=== PATIENT | female | born 1940 | race Caucasian/White ===

== ENCOUNTER → 2016-05-30 | Outpatient (CLI) | payer MEDICARE ==
[~2016-05-30] MED LIST: ACULAR 3ML 3 ML5 ML OPH; AMLODIPINE BES10 MG PO; ARTHRITIS PAIN325 M1 PO; AVPAK PRIMIDONE50 M1 PO; BUDEPRION XL150 MG PO; CALCIUM + D 6001 TA1 PO; CIPRODEX 0.3%-7.5 M1; CLARITIN10 MG PO; Ecotrin325 MG PO; FLUTICASON0.05 MG/Ac NAS; FUROSEMIDE20 M1 PO; GABAPENTIN100 M2 PO; GLUCOPHAGE1000 MG PO; K-TAB20 MEQ PO; LISINOPRIL10 MG PO; LOSARTAN POTASS50 M1 PO; MAGNESIUM250 M1 PO; MELOXICAM7.5 MG PO; METFORMIN HCL1000 MG PO; METFORMIN HCL500 M1 PO; METFORMIN500 MG PO; NASONEX0.05 MG/AC NS; NORVASC10 MG PO; OCUFLOX 0.3% 5 M5 ML OPH; OMEPRAZOLE DR20 MG PO; OSCAL,OYSTER S500 MG PO; PAXIL10 MG PO; PRED FORTE 1 ML1 ML OPH; PRILOSEC20 M1 PO; PRILOSEC20 MG PO; REQUIP2 M2 PO; SYNTHROID,LEV125 MCG PO; TRIAMTERENE & H1 CAP PO; TRIAMTERENE/HCT1 TAB PO; TYLENOL WITH CO1 TA1 PO; VIT D PO; ZESTRIL10 MG PO; ZOCOR20 MG PO; ZOCOR40 MG PO
--- NOTE | ~2016-05-30 | ST ---
[place], [place] EXERCISE STRESS TEST REPORT NAME: LEONARDO WHITESIDE [facility] #: [id number] UNIT #: [id number] ROOM: DOCTOR: AUSTIN RANDLE MD BIRTHDATE: [birth year] DOS: 05/30/2016 PHARMACOLOGIC STRESS TEST INDICATIONS: Precordial chest pain. PROCEDURE: The patient was given rapid infusion of regadenoson 0.4 mg intravenously followed by a saline flush. She experienced dyspnea and throat discomfort. Her resting electrocardiogram showed left ventricular hypertrophy. With the infusion, she did have a tachycardic response, but no diagnostic ST changes. The resting heart rate of 66 martin to 78. The resting blood pressure 188/80 fell to 160/64. Forty seconds after the infusion of regadenoson she was given radionuclide intravenously. Symptoms resolved spontaneously. IMPRESSION: 1. Well tolerated infusion of regadenoson. 2. Radionuclide injected. Please see the separate imaging report for further details of the patient's stress test results. AUSTIN RNADLE MD CM:STRESS:EXERCISE STRESS TEST REPORT [id number] AUSTIN RANDLE MD
== END | disposition home or self-care (01) ==
LOC: CARD 02:11
DX: R07.2 Precordial pain (principal); R53.81 Other malaise

== ENCOUNTER 2016-10-21 16:04 | Inpatient (IN) | payer MEDICARE ==
[~2016-10-21] VITALS: Ht 160 cm; Wt 75.0 kg
[2016-10-21] VITALS (9 sets, daily range): BP systolic 152–220; BP diastolic 65–116
--- NOTE | ~2016-10-21 | PR ---
[place], [place] PROGRESS NOTE NAME: LEONARDO WHITESIDE [facility] #: [id number] UNIT #: [id number] ROOM: 408 DOCTOR: CAREY PAULINONAIN BIRTHDATE: [birth year] DOS: 10/23/2016 SUBJECTIVE: The patient states today that overall she is feeling considerably better. She still does have some nausea, but has not experienced any emesis and diarrhea has resolved. She is eating well and notes her weakness has improved. PHYSICAL EXAMINATION: VITAL SIGNS: Blood pressure is 183/54, pulse 57, respiration 18, temperature is 98.2 degrees Fahrenheit. GENERAL: A well-appearing female, awake, alert, oriented x 3, no apparent distress. LUNGS: Clear to auscultation and percussion. HEART: Regular S4, S3, rub, murmur or heave noted. ABDOMEN: Soft, positive bowel sounds x 4. EXTREMITIES: No clubbing, cyanosis or edema noted. LABORATORY DATA: From today, WBC is 5.4, hemoglobin 10.0, hematocrit 34.5, platelets 198,000. Sodium is 133, potassium 3.0, chloride 96, CO2 is 27, BUN of 12, creatinine 0.60, glucose is 207, calcium 7.4. ASSESSMENT AND PLAN: 1. Hyponatremia. Sodium is overall improved from admission and unchanged from yesterday morning. There have been active attempts to relower this patient's sodium levels. Note her stat labs were ordered by me at 1:00 p.m. yesterday but never called to me. I did ultimately speak with the nursing staff last evening and ordered repeat stat labs showing sodium was unchanged at 133 at which point she was given 2 mcg of DDAVP as a one-time dose and was given 500 mL of D5W IV over 2 hours. The dosages was based upon her weight of approximately 75 kilograms with using formulation of 6 mL per kg. This unfortunately did not result in any further lowering of her sodium, but it did remain unchanged with today's value was noted again at 133. She has just received a second 500 mL bolus of D5W and follow up sodium level is pending. 2. Hypocalcemia. This is factitious. Her albumin yesterday was noted to be 3.2 with a corresponding calcium of 7.5 for borderline calcium of 8.1. 3. Hypertension. Blood pressure under satisfactory control. RECOMMENDATIONS: Await results of pending labs. Her sodium is currently risen by approximately 10 mEq over 36-hour period, rate of rise now appears to be appropriate and within goal range, but again await follow up labs. I want to keep her sodium no higher than 135 by this afternoon, but ideally, would accept slightly higher values. Continue to follow calciums as well, but does not appear that any intervention will be needed and we will continue for her blood pressure as well. Additionally, request all correct replacements be cleared and performed through nephrology. [place], [place] PROGRESS NOTE NAME: LEONARDO WHITESIDE UNIT #: [id number] ROOM: [facility] DOCTOR: NAIN PATINO DO BIRTHDATE: [birth year] NAIN PATINO DO CM:GONZALEZ [id number] NAIN PATINO DO 10/23/16 1641 interface
--- NOTE | ~2016-10-21 | CON ---
[place], [place] REPORT OF CONSULTATION [facility]IDE [id number] UN[facility] #: [id number] ROOM: 408 DOCTOR: NAIN PATINO DO BIRTHDATE: [birth year] DOS: 10/21/2016 REASON FOR CONSULTATION: Hyponatremia. HISTORY OF PRESENT ILLNESS: The patient is a pleasant 76-year-old female, a vague historian, unfortunately carries a prior history of hypertension, hypothyroidism, depression, hyperlipidemia, type 2 diabetes mellitus, who presents to this institution yesterday due to weakness beginning 2 days prior to admission, weakness association with nausea, vomiting and diarrhea. She states she has not been able to keep anything down since the days this began. Appetite has been poor in terms of solids, but she was attempting to push fluids as she has "dehydration." On presentation to the Emergency Room on admission, she was hypertensive 220/100. Note she had not been taking her medications because she was concerned that she would vomit them back out. Admission labs were notable for sodium of 123. Chemistries were otherwise unremarkable. Glucose was 283. TSH was checked and found to be normal at 1.96 with white count of 7.8, hemoglobin 11.7. Urinalysis showing concentrated specimen ____ 1.020 with 2+ protein, 1+ ketones, 1+ blood with epithelial cells. Not clear why, but she underwent CT scan of the abdomen and pelvis in the Emergency Room that showed no anomalies. Treatment in the Emergency Room included Zofran IV and Vasotec IV. She was seen by the hospitalist service, admitted to the floor, placed on IV fluids at 125 mL an hour. It is not clear to me if a bolus was administered as well. Labs were then rechecked this morning, her sodium has subsequently improved up to 133. Chemistry is otherwise unremarkable. Glucose was 191. Note, calcium was 7.6 but with a normal of 8.2 on admission. The albumin was low with borderline 3.7 on admission, has not been rechecked. Based upon the above noted labs, her IV fluids have been stopped as of approximately one hour ago. She reports since being admitted, she is feeling considerably better. Nausea, vomiting, diarrhea have resolved. She has been started on a liquid diet, which she states is to be advanced to solids, which she is tolerating well. She did have urine chemistries obtained this morning showing a sodium of 74, potassium of 12 and an osmolality of 238. She has been previously evaluated by our service on 2 separate occasions for hyponatremia and had been followed by Dr. Gomez in the office as well for hyponatremia, but has not seen him for several months. Past workup included a CT scan of the chest given her smoking history, it did not reveal any evidence of any malignancies. Cortisol levels have been normal in the past as have thyroid function tests. She had previously been on Dyazide, but this was discontinued after her most recent stay for hyponatremia in 12/2015. She had previously been on losartan as well. This has since been stopped and she has also previously been taking Paxil, which was by report for depression. This has been stopped and she is now on bupropion. Her current medications do not reveal any medications that may be contributing to her hyponatremia with the exception of primidone 50 mg b.i.d., appears this has been a longstanding medication for this patient. She denies use of NSAIDs. PAST MEDICAL HISTORY: See above. ALLERGIES: No known drug allergies. [place], [place] REPORT OF CONSULTATION NAME: LEONARDO WHITESIDE UNIT #: [id number] ROOM: 408 DOCTOR: NAIN PATINO DO BIRTHDATE: [birth year] CURRENT MEDICATIONS: Lisinopril 10 mg p.o. every day, Lovenox 40 mg subcutaneously every day, sliding scale insulin, Protonix 40 mg p.o. every day, saline 100 mL an hour, now discontinued. SOCIAL HISTORY: She resides at home. FAMILY HISTORY: Noncontributory ____ HPI. REVIEW OF SYSTEMS: Full 10-point was otherwise unremarkable except as noted above. PHYSICAL EXAMINATION: VITAL SIGNS: Blood pressure is 189/51, pulse 60, respiration 18, temperature is 98 degrees Fahrenheit. GENERAL: A well-appearing female, awake, alert, oriented x 3, no apparent distress. HEENT: Head is normocephalic. Eyes, conjunctivae pink. Oral mucous is pink and moist. NECK: No carotid bruit, thyromegaly, adenopathy or JVD appreciated. LUNGS: Clear to auscultation and percussion. HEART: Regular, without S4, S3 gallop, rub, murmur or heave noted. ABDOMEN: Soft, positive bowel sounds x 4, nontender, without CVA tenderness noted. No rebound, guarding, rigidity noted. No abdominal or flank bruits appreciated. NEUROLOGIC: Examination is grossly nonfocal. EXTREMITIES: No clubbing, cyanosis. There is no edema noted. Pulses are +2 bilateral as well as dorsalis pedis. SKIN: Warm and dry without rash, ulcers, lesions, or petechiae appreciated. LABORATORY DATA: WBCs are 5.9, hemoglobin and hematocrit ____, platelets are 225,000. Sodium is 133, potassium 3.5, chloride 101, CO2 25, BUN 13, creatinine 0.69, glucose is 191, calcium 7.6. Hemoglobin A1c is 9.5%. Total cholesterol is 176, 25-vitamin D is 51.6. Urine osmolality is 238. Urine sodium is 274, urine potassium is 12. 0. ASSESSMENT: 1. Hyponatremia, recurrent in nature. The circumstances surrounding the development of hyponatremia today are similar to those that have occurred in the past, though in the past, it appears that thiazide-type diuretics were implicated. She currently remains on primidone. It is unclear to me exactly why she is on this particular medication and it certainly may be contributing to her hyponatremia, though I suspect the low sodium observed invariably due to volume depletion with appropriate ADH release combined with the patient's excess of intake of water. Her hyponatremia is corrected, in fact, in a too rapid fashion secondary to use of IV fluids. She also was given a dose of Lasix in the Emergency Room, which would be to increase free water clearance as well. She currently is asymptomatic from the rapid correction of her hyponatremia and is already noted, IV fluids are stopped and her oral intake is improving. 2. Hypocalcemia. Presumably, this is fictitious with possibly low albumin level. [place], [place] REPORT OF CONSULTATION NAME: LEONARDO WHITESIDE UNIT #: [id number] ROOM: [facility] DOCTOR: NAIN PATINO DO BIRTHDATE: [birth year] 3. Hypertension. Blood pressure status is controlled. She is now on lisinopril, which may potentially contribute to hyponatremia, does not appear she is on any medications for hypertension as an outpatient, however. RECOMMENDATIONS: I agree currently with the use of lisinopril, but may need to be stopped if hyponatremia recurs. I agree with continued use of primidone, but may need to reconsider use of this medication as well. We will recheck a sodium level PETERSON and will lower her sodium levels as needed. Goal sodium level should be approximately 4-6 mEq per 24 hours with a max of approximately 8 mEq per 24 hours, which the patient as already noted having martin by 10 mEq in approximately 14 hours. We will also check a followup albumin level and followup calciums and treat accordingly. NAIN PATINO DO CM:CONSTR:REPORT OF CONSULTATION 1144 10/23/16 0642 interface
[~2016-10-21 16:04] MED LIST changes: -VIT D PO; +VITAMIN D-32000 UNIT PO
[2016-10-21 16:55] LABS: BASO % 0.1 % (0.0-1.0); EOS % 0.1 % (1.0-4.0); HEMATOCRIT 38.1 % (37.0-47.0); HEMOGLOBIN 11.7 g/dl (12.0-16.0); LYMPH # 0.6 10*3/uL (1.3-4.4); LYMPH % 8.1 % (27.0-41.0); MEAN CORPUSCULAR HGB 21.5 pg (27.0-31.0); MEAN CORPUSCULAR HGB CONC 30.7 g/dl (33.0-37.0); MEAN PLATELET VOLUME 9.4 fl (9.6-12.3); MONO # 0.3 10*3/uL (0.1-1.0); MONO % 4.2 % (3.0-9.0); NEUT # 6.8 10*3/uL (2.3-7.9); NEUT % 87.1 % (47.0-73.0); PLATELET COUNT AUTOMATED 246 10*3/uL (130-400); RED BLOOD COUNT 5.44 10*6/uL (4.10-5.10); RED CELL DISTRI WIDTH 16.7 % (0-14.5); WHITE BLOOD COUNT 7.8 10*3/uL (4.8-10.8)
[2016-10-21 17:11] LABS: ALBUMIN 3.7 gm/dl (3.1-4.5); ALKALINE PHOSPHATASE 100 U/L (45-117); BILIRUBIN, TOTAL 0.6 mg/dl (0.2-1.0); BUN 19 mg/dl (7-24); CARBON DIOXIDE 27 mmol/L (21-32); CHLORIDE 86 mmol/L (98-107); EST GLOM FILT AFRICAN AMERICAN > 60 ml/min; GLUCOSE 283 mg/dL (65-99); POTASSIUM 3.7 mmol/L (3.5-5.1); SGOT/AST 17 IU/L (3-35); SGPT/ALT 16 U/L (12-78); SODIUM 123 mmol/L (136-145); TOTAL PROTEIN 7.4 gm/dL (6.4-8.2)
[2016-10-21 17:12] LABS: FREE T4 1.45 ng/dl (0.76-1.46)
[2016-10-21 18:02] LABS: BILIRUBIN NEGATIVE (NEGATIVE); BLOOD 1+ (NEGATIVE); CLARITY CLEAR (CLEAR); COLOR YELLOW (YELLOW); GLUCOSE 3+ (NEGATIVE); KETONE 1+ (NEGATIVE); LEUKO ESTERASE NEGATIVE (NEGATIVE); NITRITE NEGATIVE (NEGATIVE); PH 6.5 (5.0-9.0); PROTEIN 2+ (NEGATIVE)
[2016-10-21 18:11] LABS: BACTERIA TRACE; URINE REFLEX COMMENT YES (NO)
[2016-10-22] VITALS (7 sets, daily range): BP systolic 115–189; BP diastolic 51–84
[2016-10-22 07:22] LABS: BASO % 0.2 % (0.0-1.0); EOS % 0.3 % (1.0-4.0); HEMATOCRIT 37.5 % (37.0-47.0); HEMOGLOBIN 11.2 g/dl (12.0-16.0); LYMPH # 1.2 10*3/uL (1.3-4.4); LYMPH % 20.7 % (27.0-41.0); MEAN CELL VOLUME 71.4 fl (81.0-99.0); MEAN CORPUSCULAR HGB 21.3 pg (27.0-31.0); MEAN CORPUSCULAR HGB CONC 29.9 g/dl (33.0-37.0); MEAN PLATELET VOLUME 9.6 fl (9.6-12.3); MONO # 0.4 10*3/uL (0.1-1.0); MONO % 7.1 % (3.0-9.0); NEUT # 4.2 10*3/uL (2.3-7.9); NEUT % 71.2 % (47.0-73.0); PLATELET COUNT AUTOMATED 225 10*3/uL (130-400); RED BLOOD COUNT 5.25 10*6/uL (4.10-5.10); RED CELL DISTRI WIDTH 16.5 % (0-14.5); WHITE BLOOD COUNT 5.9 10*3/uL (4.8-10.8)
[2016-10-22 07:32] LABS: BUN 13 mg/dl (7-24); CARBON DIOXIDE 25 mmol/L (21-32); CHLORIDE 101 mmol/L (98-107); EST GLOM FILT AFRICAN AMERICAN > 60 ml/min; GLUCOSE 191 mg/dL (65-99)
[2016-10-22 07:37] LABS: CHOLESTEROL 176 mg/dL (<200); HDL CHOLESTEROL 36 mg/dl (40-60)
[2016-10-22 07:41] LABS: LDL CHOLESTEROL 104 mg/dL (9-159); TRIGLYCERIDES 179 mg/dl (<150); VLDL CHOLESTEROL 36 mg/dL (6-40)
[2016-10-22 07:46] LABS: POTASSIUM 3.5 mmol/L (3.5-5.1); SODIUM 133 mmol/L (136-145)
[2016-10-22 08:01] LABS: HEMOGLOBIN A1c 9.5 % (4.8-5.6)
[2016-10-22 08:53] LABS: FOLIC ACID 12.5 ng/mL (>5.38); VITAMIN D, 25-HYDROXY 31.6 ng/mL (30-100)
[2016-10-22] MEDS ORDERED: LASIX20 MG PO (09:01)
[2016-10-22 13:41] LABS: ALBUMIN 3.2 gm/dl (3.1-4.5); BUN 12 mg/dl (7-24); CARBON DIOXIDE 27 mmol/L (21-32); CHLORIDE 100 mmol/L (98-107); EST GLOM FILT AFRICAN AMERICAN > 60 ml/min; GLUCOSE 250 mg/dL (65-99); PHOSPHOROUS 2.3 mg/dL (2.5-4.9); POTASSIUM 3.4 mmol/L (3.5-5.1); SODIUM 133 mmol/L (136-145)
[2016-10-22 22:19] LABS: BUN 13 mg/dl (7-24); CARBON DIOXIDE 26 mmol/L (21-32); CHLORIDE 98 mmol/L (98-107); EST GLOM FILT AFRICAN AMERICAN > 60 ml/min; GLUCOSE 350 mg/dL (65-99); POTASSIUM 3.3 mmol/L (3.5-5.1); SODIUM 133 mmol/L (136-145)
[2016-10-23] VITALS: BP 205/51
[2016-10-23 04:00] VITALS: BP 184/68
[2016-10-23 04:47] LABS: BASO % 0.2 % (0.0-1.0); EOS % 0.6 % (1.0-4.0); HEMATOCRIT 34.5 % (37.0-47.0); LYMPH # 1.5 10*3/uL (1.3-4.4); LYMPH % 28.8 % (27.0-41.0); MEAN CELL VOLUME 73.1 fl (81.0-99.0); MEAN CORPUSCULAR HGB 21.2 pg (27.0-31.0); MEAN PLATELET VOLUME 9.9 fl (9.6-12.3); MONO # 0.4 10*3/uL (0.1-1.0); MONO % 6.7 % (3.0-9.0); NEUT # 3.4 10*3/uL (2.3-7.9); NEUT % 63.3 % (47.0-73.0); PLATELET COUNT AUTOMATED 198 10*3/uL (130-400); RED BLOOD COUNT 4.72 10*6/uL (4.10-5.10); RED CELL DISTRI WIDTH 16.4 % (0-14.5); WHITE BLOOD COUNT 5.4 10*3/uL (4.8-10.8)
[2016-10-23 05:08] LABS: BUN 12 mg/dl (7-24); CARBON DIOXIDE 27 mmol/L (21-32); CHLORIDE 96 mmol/L (98-107); EST GLOM FILT AFRICAN AMERICAN > 60 ml/min; GLUCOSE 207 mg/dL (65-99); SODIUM 133 mmol/L (136-145)
[2016-10-23 08:00] VITALS: BP 162/57; BP 183/54
[2016-10-23 11:32] LABS: BUN 10 mg/dl (7-24); CARBON DIOXIDE 29 mmol/L (21-32); CHLORIDE 91 mmol/L (98-107); EST GLOM FILT AFRICAN AMERICAN > 60 ml/min; GLUCOSE 223 mg/dL (65-99); SODIUM 128 mmol/L (136-145)
[2016-10-23 12:00] VITALS: BP 142/84
[2016-10-23 16:00] VITALS: BP 162/57
[2016-10-23 17:10] LABS: BUN 9 mg/dl (7-24); CARBON DIOXIDE 26 mmol/L (21-32); CHLORIDE 95 mmol/L (98-107); EST GLOM FILT AFRICAN AMERICAN > 60 ml/min; GLUCOSE 202 mg/dL (65-99); POTASSIUM 3.5 mmol/L (3.5-5.1); SODIUM 128 mmol/L (136-145)
[2016-10-23 20:00] VITALS: BP 157/59
[2016-10-24] VITALS: BP 168/72; BP 185/49
[2016-10-24 05:33] LABS: ALKALINE PHOSPHATASE 75 U/L (45-117); BILIRUBIN, TOTAL 0.4 mg/dl (0.2-1.0); BUN 8 mg/dl (7-24); CARBON DIOXIDE 27 mmol/L (21-32); CHLORIDE 98 mmol/L (98-107); EST GLOM FILT AFRICAN AMERICAN > 60 ml/min; GLUCOSE 178 mg/dL (65-99); MAGNESIUM 1.8 mg/dL (1.5-2.1); PHOSPHOROUS 4.1 mg/dL (2.5-4.9); POTASSIUM 3.5 mmol/L (3.5-5.1); SGOT/AST 13 IU/L (3-35); SGPT/ALT 15 U/L (12-78); SODIUM 134 mmol/L (136-145); TOTAL PROTEIN 6.2 gm/dL (6.4-8.2)
[2016-10-24 08:00] VITALS: BP 150/80
[2016-10-24 12:00] VITALS: BP 162/66
[2016-10-24 13:10] VITALS: BP 146/78
[2016-10-24] MEDS ORDERED: METFORMIN1000 MG PO (13:33)
[2016-10-24] MEDS ORDERED: AMLODIPINE BESYL5 MG PO (13:33)
[2016-10-24] MEDS ORDERED: LISINOPRIL20 MG PO (13:33)
[2016-10-24] MEDS ORDERED: Oscal,Oyster S500 MG PO (13:33)
== END 2016-10-24 15:08 | disposition home or self-care (01) | DRG 392 ==
LOC: ED 16:04 → 4E 19:45 → EDHOLD 19:45 → 4E 19:53
PROVIDERS: Emergency Medicine; Family Medicine; Internal Medicine; Internal Medicine Nephrology
DX: K52.9 Noninfective gastroenteritis and colitis, unspecified (principal); E44.0 Moderate protein-calorie malnutrition; E11.42 Type 2 diabetes mellitus with diabetic polyneuropathy; E11.69 Type 2 diabetes mellitus with other specified complication; E87.1 Hypo-osmolality and hyponatremia; I16.0 Hypertensive urgency; K21.0 Gastro-esophageal reflux disease with esophagitis; R80.0 Isolated proteinuria; D64.9 Anemia, unspecified; F17.200 Nicotine dependence, unspecified, uncomplicated; E87.6 Hypokalemia; E83.51 Hypocalcemia; E83.39 Other disorders of phosphorus metabolism; E78.5 Hyperlipidemia, unspecified; J43.9 Emphysema, unspecified; Z86.73 Personal history of transient ischemic attack (TIA), and cerebral infarction without residual deficits; Z98.42 Cataract extraction status, left eye; Z98.41 Cataract extraction status, right eye; Z90.710 Acquired absence of both cervix and uterus; Z80.52 Family history of malignant neoplasm of bladder; Z82.49 Family history of ischemic heart disease and other diseases of the circulatory system; Z80.1 Family history of malignant neoplasm of trachea, bronchus and lung; Z83.6 Family history of other diseases of the respiratory system; Z68.29 Body mass index [BMI] 29.0-29.9, adult; E89.0 Postprocedural hypothyroidism

== ENCOUNTER 2016-10-31 11:08 | Emergency (ER) | payer MEDICARE ==
[~2016-10-31] VITALS: Ht 160 cm; Wt 75.3 kg
[~2016-10-31 11:08] MED LIST changes: +AMLODIPINE BESYL5 MG PO; +LASIX20 MG PO; +LISINOPRIL20 MG PO; +METFORMIN1000 MG PO; +Oscal,Oyster S500 MG PO
[2016-10-31 11:15] VITALS: BP 153/103
[2016-10-31 12:01] LABS: BASO % 0.2 % (0.0-1.0); EOS % 0.3 % (1.0-4.0); HEMATOCRIT 36.8 % (37.0-47.0); HEMOGLOBIN 11.1 g/dl (12.0-16.0); LYMPH # 1.1 10*3/uL (1.3-4.4); LYMPH % 18.8 % (27.0-41.0); MEAN CELL VOLUME 73.2 fl (81.0-99.0); MEAN CORPUSCULAR HGB 22.1 pg (27.0-31.0); MEAN CORPUSCULAR HGB CONC 30.2 g/dl (33.0-37.0); MEAN PLATELET VOLUME 9.6 fl (9.6-12.3); MONO # 0.4 10*3/uL (0.1-1.0); MONO % 6.2 % (3.0-9.0); NEUT # 4.4 10*3/uL (2.3-7.9); NEUT % 74.3 % (47.0-73.0); PLATELET COUNT AUTOMATED 244 10*3/uL (130-400); RED BLOOD COUNT 5.03 10*6/uL (4.10-5.10); RED CELL DISTRI WIDTH 17.3 % (0-14.5); WHITE BLOOD COUNT 5.9 10*3/uL (4.8-10.8)
[2016-10-31 12:10] LABS: PROTHROMBIN TIME 10.3 SECONDS (9.0-12.4)
[2016-10-31 12:17] LABS: ALBUMIN 3.4 gm/dl (3.1-4.5); ALKALINE PHOSPHATASE 78 U/L (45-117); BILIRUBIN, TOTAL 0.4 mg/dl (0.2-1.0); BUN 9 mg/dl (7-24); C-REACTIVE PROTEIN < 0.29 MG/DL (0-0.3); CARBON DIOXIDE 25 mmol/L (21-32); CHLORIDE 100 mmol/L (98-107); CKMB 1.9 ng/ml (0.5-3.6); CPK 60 U/L (26-192); EST GLOM FILT AFRICAN AMERICAN > 60 ml/min; GLUCOSE 175 mg/dL (65-99); MAGNESIUM 1.5 mg/dL (1.5-2.1); POTASSIUM 3.9 mmol/L (3.5-5.1); SGOT/AST 11 IU/L (3-35); SGPT/ALT 15 U/L (12-78); SODIUM 132 mmol/L (136-145); TOTAL PROTEIN 7.2 gm/dL (6.4-8.2); TROPONIN I < 0.015 ng/ml (<0.045)
[2016-10-31] MEDS ORDERED: PREDNISONE10 MG PO (13:53)
[2016-10-31 13:58] LABS: LA>2 REFLEX 2 HR DRAW NOW
== END 2016-10-31 14:21 | disposition home or self-care (01) ==
LOC: ED 11:08
PROVIDERS: Emergency Medicine
DX: G51.0 Bell's palsy (principal); F17.200 Nicotine dependence, unspecified, uncomplicated; E78.5 Hyperlipidemia, unspecified; E11.9 Type 2 diabetes mellitus without complications; K21.9 Gastro-esophageal reflux disease without esophagitis; I10 Essential (primary) hypertension; E03.9 Hypothyroidism, unspecified; Z90.710 Acquired absence of both cervix and uterus; Z90.89 Acquired absence of other organs; Z98.42 Cataract extraction status, left eye; Z98.41 Cataract extraction status, right eye; Z79.899 Other long term (current) drug therapy; Z86.73 Personal history of transient ischemic attack (TIA), and cerebral infarction without residual deficits

== ENCOUNTER → 2016-11-26 | Outpatient (CLI) | payer MEDICARE ==
[~2016-11-26] MED LIST changes: +HEARTBURN RELIE20 MG PO; +OYSTER SHELL C1 EAC1 PO; +PREDNISONE10 MG PO; +REQUIP1 M1 PO
[2016-11-26 11:36] LABS: BASO % 0.2 % (0.0-1.0); EOS % 0.4 % (1.0-4.0); HEMATOCRIT 33.9 % (37.0-47.0); HEMOGLOBIN 10.4 g/dl (12.0-16.0); LYMPH # 1.1 10*3/uL (1.3-4.4); LYMPH % 20.4 % (27.0-41.0); MEAN CELL VOLUME 73.7 fl (81.0-99.0); MEAN CORPUSCULAR HGB 22.6 pg (27.0-31.0); MEAN CORPUSCULAR HGB CONC 30.7 g/dl (33.0-37.0); MEAN PLATELET VOLUME 9.5 fl (9.6-12.3); MONO # 0.4 10*3/uL (0.1-1.0); MONO % 6.7 % (3.0-9.0); NEUT # 3.7 10*3/uL (2.3-7.9); NEUT % 71.9 % (47.0-73.0); PLATELET COUNT AUTOMATED 237 10*3/uL (130-400); RED CELL DISTRI WIDTH 19.1 % (0-14.5); WHITE BLOOD COUNT 5.2 10*3/uL (4.8-10.8)
[2016-11-26 12:00] LABS: ALKALINE PHOSPHATASE 84 U/L (45-117); BUN 7 mg/dl (7-24); CHLORIDE 99 mmol/L (98-107); CREATININE 0.57 mg/dL (0.55-1.02); POTASSIUM 2.9 mmol/L (3.5-5.1); SGOT/AST 14 IU/L (3-35); SGPT/ALT 15 U/L (12-78); SODIUM 133 mmol/L (136-145); TOTAL PROTEIN 6.8 gm/dL (6.4-8.2)
== END | disposition home or self-care (01) ==
LOC: LAB 10:54
PROVIDERS: Internal Medicine
DX: R10.11 Right upper quadrant pain (principal)

== ENCOUNTER 2016-11-28 11:02 | Inpatient (IN) | payer MEDICARE ==
[~2016-11-28] VITALS: Ht 160 cm; Wt 74.0 kg
--- NOTE | ~2016-11-28 | O ---
[place], [place] OPERATIVE NOTE NAME: LEONARDO WHITESIDE [facility] #: [id number] UNIT #: [id number] ROOM: 506 DOCTOR: CAESAR AUGUSTINE MD BIRTHDATE: [birth year] DOS: 12/02/2016 PREOPERATIVE DIAGNOSIS: Biliary dyskinesia. POSTOPERATIVE DIAGNOSIS: Biliary dyskinesia. PROCEDURE: Laparoscopic cholecystectomy. SURGEON: Caesar Augustine MD RESEARCH PROGRAM COORDINATOR: DOMINIQUE. ANESTHESIA: General with endotracheal intubation. INDICATIONS: This is a 76-year-old lady who was admitted with right upper quadrant pain, nausea, and vomiting, and HIDA scan that showed biliary dyskinesia. It was decided to take the patient to the operating room for a laparoscopic cholecystectomy. The procedure and its complications were explained to the patient in detail preoperatively. Complications that were discussed included but were not limited to bleeding, infection, hematoma/seroma/abscess formation, prolonged postoperative pain, biloma formation, inadvertent injury to the common bile duct and incisional hernia formation. She agreed to proceed. DESCRIPTION OF PROCEDURE: After identifying the patient, the patient was brought to the operating suite and laid in the supine position. After induction of general anesthesia, timeout procedure was called and the parts were then painted and draped in the usual sterile fashion. An incision in a transverse fashion was made under the umbilicus. The skin and the subcutaneous tissue were incised. The fascia was incised vertically and 2 stay sutures with 0 Vicryl were taken. The peritoneum was opened and a 12 mm Nico port was introduced. Under direct vision, an epigastric incision of 10 mm and two 5 mm incisions were made in the right upper quadrant and appropriate size ports were introduced. The gallbladder is retracted superiorly and laterally. The cystic duct and the cystic artery were meticulously dissected until the critical view of safety was obtained. Both these structures were then clipped 3 times and cut between the first and the second clip. The gallbladder was then removed from the bed of the gallbladder with the help of electrocautery. It was placed in an EndoCatch bag and removed from the peritoneal cavity and sent for histopathological diagnosis. Thereafter, the liver bed was inspected for hemostasis and this was performed with the help of electrocautery. After hemostasis was confirmed, the right upper quadrant ports and the epigastric port was both removed and there was no bleeding seen. The umbilical port was also removed and the pneumoperitoneum was decompressed. An additional 0 Vicryl suture was taken to close the fascia. The skin edges were infiltrated with 1% lidocaine and approximated with the help of 4-0 Vicryl in a subcuticular running fashion. Dressings were placed on all the 4 incisions. The patient tolerated the procedure well and was extubated uneventfully and brought back to the recovery room in stable fashion. There were no complications. Dr. Caesar Augustine, the attending surgeon, was present throughout the operating case. [place], [place] OPERATIVE NOTE NAME: LEONARDO WHITESIDE UNIT #: [id number] ROOM: [facility] DOCTOR: CAESAR AUGUSTINE MD BIRTHDATE: [birth year] Caesar Augustine MD CM:OPRECORD:OPERATIVE NOTE [id number] 5 CAESAR AUGUSTINE MD 12/02/1646 interface
[~2016-11-28 11:02] MED LIST changes: -HEARTBURN RELIE20 MG PO; -OYSTER SHELL C1 EAC1 PO; -REQUIP1 M1 PO
[2016-11-28 11:07] VITALS: BP 165/71
[2016-11-28 11:48] LABS: BASO % 0.2 % (0.0-1.0); EOS % 0.4 % (1.0-4.0); HEMATOCRIT 34.3 % (37.0-47.0); HEMOGLOBIN 10.3 g/dl (12.0-16.0); LYMPH # 1.2 10*3/uL (1.3-4.4); LYMPH % 24.1 % (27.0-41.0); MEAN CELL VOLUME 73.3 fl (81.0-99.0); MEAN PLATELET VOLUME 9.4 fl (9.6-12.3); MONO # 0.3 10*3/uL (0.1-1.0); MONO % 6.5 % (3.0-9.0); NEUT # 3.5 10*3/uL (2.3-7.9); NEUT % 68.4 % (47.0-73.0); PLATELET COUNT AUTOMATED 243 10*3/uL (130-400); RED BLOOD COUNT 4.68 10*6/uL (4.10-5.10); RED CELL DISTRI WIDTH 19.3 % (0-14.5); WHITE BLOOD COUNT 5.1 10*3/uL (4.8-10.8)
[2016-11-28 12:05] LABS: ALBUMIN 2.9 gm/dl (3.1-4.5); ALKALINE PHOSPHATASE 90 U/L (45-117); BUN 8 mg/dl (7-24); CHLORIDE 100 mmol/L (98-107); LIPASE 201 U/L (73-393); MAGNESIUM 1.1 mg/dL (1.5-2.1); SGOT/AST 14 IU/L (3-35); SGPT/ALT 14 U/L (12-78); SODIUM 135 mmol/L (136-145); TOTAL PROTEIN 6.9 gm/dL (6.4-8.2)
[2016-11-28 12:07] LABS: TROPONIN I < 0.015 ng/ml (<0.045)
--- NOTE | 2016-11-28 12:11 | NUR ---
LAB CALLED WITH CRITICAL CALCIUM, DR PEREZ NOTIFIED.
--- NOTE | 2016-11-28 12:17 | NUR ---
PT REMAINS W/O ACUTE DISTRESS NOTED WITH FAMILY @ BEDSIDE AND SAFETY PRECAUTIONS INTACT.
--- NOTE | 2016-11-28 12:51 | NUR ---
DISCUSSED WITH PT AND FAMILY THAT STILL NEED A URINE SPECIMEN FOR ADDITIONAL PLAN OF CARE,ACKNOWLEDGEMENT GIVEN.
[2016-11-28 13:29] LABS: BILIRUBIN NEGATIVE (NEGATIVE); BLOOD NEGATIVE (NEGATIVE); CLARITY SL CLOUDY (CLEAR); COLOR YELLOW (YELLOW); GLUCOSE 1+ (NEGATIVE); KETONE NEGATIVE (NEGATIVE); LEUKO ESTERASE NEGATIVE (NEGATIVE); NITRITE NEGATIVE (NEGATIVE); PH 6.5 (5.0-9.0); SPECIFIC GRAVITY <= 1.005 (1.005-1.030)
[2016-11-28 13:33] VITALS: BP 158/70
[2016-11-28 13:38] LABS: BACTERIA TRACE; EPITHELIAL CELLS 31-40; RBC 0-2 rbc/hpf (0-2)
[2016-11-28 14:30] VITALS: BP 144/56; BP 146/55
--- NOTE | 2016-11-28 14:30 | NUR ---
A 76, admitted to , under the services of CLARE Mcrae DO with a diagnosis of HYPOKALEMIA, HYPOMAGNESMIA, HYPOCALCEMIA. Chief complaint is NAUSEA/VOMITING. Patient arrived via bed from ER. Monitor applied. Initial assessment completed. Vital signs taken and recorded. CLARE MCRAE DO notified of admission to the unit. Orders received. See assessment for past medical history, medications and allergies. Patient and/or family oriented to unit. [facility] visitation policy reviewed. Clothing/patient valuable form completed. VIVEK BARRERA A
[2016-11-28 16:00] VITALS: BP 134/57
[2016-11-28] MEDS ORDERED: REQUIP1 M1 PO (17:13)
[2016-11-28] MEDS ORDERED: HEARTBURN RELIE20 MG PO (17:14)
[2016-11-28] MEDS ORDERED: OYSTER SHELL C1 EAC1 PO (17:14)
--- NOTE | 2016-11-28 17:18 | NUR ---
DR. FLANNERY CONSULTED FOR NAUSEA/VOMITING, NO NEW ORDERS.
--- NOTE | 2016-11-28 17:25 | NUR ---
SPOKE WITH DEBRA FORTUNE NEW ORDERS RECIEVED.
--- NOTE | 2016-11-28 17:27 | NUR ---
DR. GOMEZ NOTIFIED THAT MEDS ARE RECONCILLED.
[2016-11-28 20:00] VITALS: BP 161/46
--- NOTE | 2016-11-28 22:52 | NUR ---
PATIENT IS AWAKE, ALERT AND ORIENTED X 3. PLEASANT AND COOPERATIVE. LUNGS ARE DIMINISHED THROUGHOUT LUNGFIELDS. ROOM AIR. ABDOMEN IS SOFT, PER PATIENT SHE IS HAVING EXTREME TENDERNESS AND ACHYNESS. NO EDEMA TO BOLE , PPP. CALL LIGHT IS IN REACH.
--- NOTE | 2016-11-28 22:53 | NUR ---
DR. BRENNER CALLED DUE TO PATIENT HAVING C/O ABDOMINAL PAIN . PER DR. GARCIA ITY IS OK TO GIVE HER A ONE TIME DOSE OF MORPHINE.
--- NOTE | 2016-11-28 23:34 | NUR ---
PATIENT MEDICATED WITH MORPHINE AT THIS TIME. CALL LIGHT IS IN REACH.
[2016-11-29] VITALS: BP 144/53
--- NOTE | 2016-11-29 00:30 | NUR ---
PATIENT RESTING IN BED WITH EYES CLOSED BILATERALLY. RESPIRATIONS ARE EASY AND REGULAR. NO S/S OF PAIN OR DISCOMFORT. MORPHINE EFFECTIVE AT THIS TIME. CALL LIGHT IS IN REACH.
--- NOTE | 2016-11-29 00:30 | NUR ---
24 HOUR CHART CHECK COMPLETED AT THIS TIME.
--- NOTE | 2016-11-29 06:19 | NUR ---
PATIETN AROUSES EASILY THIS MORNING. ALERT AND ORIENTED X3. PLEASANT AND COOPERATIVE. DENIES ANY NEEDS AT THE PRESENT TIME. CALL LIGHT IS IN REACH.
[2016-11-29 06:41] LABS: BASO % 0.3 % (0.0-1.0); EOS % 0.6 % (1.0-4.0); HEMATOCRIT 30.2 % (37.0-47.0); HEMOGLOBIN 9.1 g/dl (12.0-16.0); LYMPH # 0.9 10*3/uL (1.3-4.4); LYMPH % 25.6 % (27.0-41.0); MEAN CELL VOLUME 74.2 fl (81.0-99.0); MEAN CORPUSCULAR HGB 22.4 pg (27.0-31.0); MEAN CORPUSCULAR HGB CONC 30.1 g/dl (33.0-37.0); MEAN PLATELET VOLUME 9.3 fl (9.6-12.3); MONO # 0.3 10*3/uL (0.1-1.0); NEUT # 2.4 10*3/uL (2.3-7.9); NEUT % 66.2 % (47.0-73.0); PLATELET COUNT AUTOMATED 194 10*3/uL (130-400); RED BLOOD COUNT 4.07 10*6/uL (4.10-5.10); WHITE BLOOD COUNT 3.6 10*3/uL (4.8-10.8)
[2016-11-29 07:07] LABS: ALBUMIN 2.7 gm/dl (3.1-4.5); BUN 3 mg/dl (7-24); CHLORIDE 105 mmol/L (98-107); CREATININE 0.42 mg/dL (0.55-1.02); MAGNESIUM 1.7 mg/dL (1.5-2.1); PHOSPHOROUS 3.2 mg/dL (2.5-4.9); POTASSIUM 3.2 mmol/L (3.5-5.1); SGOT/AST 11 IU/L (3-35); SGPT/ALT 13 U/L (12-78); SODIUM 139 mmol/L (136-145); TOTAL PROTEIN 5.9 gm/dL (6.4-8.2)
[2016-11-29 07:14] LABS: ALKALINE PHOSPHATASE 75 U/L (45-117); FREE T4 1.51 ng/dl (0.76-1.46); THYROID STIM HORMONE (HS) 0.933 uIU/ml (0.358-4.75)
--- NOTE | 2016-11-29 07:37 | NUR ---
SPOKE WITH DR. CERVANTES IN REGARDS TO PT. CRITICAL LAB VALUE, STATED IT WILL BE FIXED.
[2016-11-29 08:00] VITALS: BP 148/52
--- NOTE | 2016-11-29 08:30 | NUR ---
County Administrator in to talk to patient. Patient states lives at HOME [address] with HER . There are A FEW steps in the home. Physician: DR PENA Pharmacy: [facility] IN [place] Home health services: NONE Patient's level of ADLs: INDEPENDENT Patient has working utilities: YES DME: ALISA [facility] Follow-up physician's appointment after d/c: WILL BE MADE PRIOR TO DC Does patient want to access PORTAL?: Discharge plan HOME. KOFI POWERS
--- NOTE | 2016-11-29 09:07 | NUR ---
PHYSICAL THERAPY Patient off floor for testing at this time. Thank you for this referral. Aurora Solorio,PT
--- NOTE | 2016-11-29 10:25 | NUR ---
PHYSICAL THERAPY PAtient still at testing. Aurora Solorio,PT
[2016-11-29 12:00] VITALS: BP 142/60
--- NOTE | 2016-11-29 12:47 | NUR ---
DR. ALCALA OFFICE NOTIFIED OF CONSULT.
--- NOTE | 2016-11-29 13:32 | NUR ---
PHYSICAL THERAPY PAtient reports she has no PT needs- she is (I) with mobility. Thank you for this referral. Aurora Pimentel,PT
--- NOTE | 2016-11-29 14:13 | NUR ---
DR. LANGE IN TO SEE PT.
--- NOTE | 2016-11-29 15:25 | NUR ---
DR. FLANNERY CONSULTED FOR RESULTS OF PT. HIDA SCAN, NO NEW ORDERS.
[2016-11-29 16:00] VITALS: BP 158/50
--- NOTE | 2016-11-29 16:05 | NUR ---
DR. FLANNERY CALLED BACK AND INFORMED OF DR. DIAMOND COVERING FOR WEEKEND AND WILL BE UP TO SEE PT. TOMORROW, ASLO INFORMED THAT HE WILL NOTIFY DR. VALDEZ.
--- NOTE | 2016-11-29 17:46 | NUR ---
PT. C/O BACK PAIN RATING IT A 9:10 AND REFUSED TYLENOL, REPOSITIONING, AND AMBULATION. DR. CERVANTES NOTIFIED K PAD ORDERED.
[2016-11-29 20:00] VITALS: BP 157/47
--- NOTE | 2016-11-29 20:00 | NUR ---
PATIENT IS AWAKE, ALERT AND ORIENTED X3. PLEASANT AND COOPERATIVE. LUNGS ARE CLEAR AND DIMINISHED THROUGHOUT LUNGFIELDS. ROOM AIR. ABDOMEN IS SOFT AND NON-TENDER UPON PALPATION, BOWEL SOUNDS ARE NOROMOACTIVE X 4 QUADS. DISCOLORATION TO ALL EXTREMITIES, ECCHYMOSIS. PER PATIENT THIS IS CHRONIC . NO EDEMA TO BLE, PPP. PATIENT STATES THAT SHE HAS HAD RELIEF TO HER BACK AND ABDOMEN BY ROATATING A K-PAD AND REPOSITIONING. PATIETN VERBALIZED C/O NAUSEA. PRN ZOFRAN GIVEN AT THIS TIME. CALL LIGHT IS IN REACH.
[2016-11-30] VITALS: BP 171/57
--- NOTE | 2016-11-30 05:50 | NUR ---
PATIENT AROUSES EASILY FOR MORNING MEDICATIONS. ALERT AND ORIENTED X3. DENIES ANY NEEDS AT THE PRESENT TIME. CALL LIGHT IS IN REACH.
[2016-11-30 06:01] LABS: BASO % 0.3 % (0.0-1.0); EOS % 0.8 % (1.0-4.0); HEMATOCRIT 29.9 % (37.0-47.0); HEMOGLOBIN 9.1 g/dl (12.0-16.0); LYMPH # 1.1 10*3/uL (1.3-4.4); LYMPH % 30.1 % (27.0-41.0); MEAN CELL VOLUME 74.4 fl (81.0-99.0); MEAN CORPUSCULAR HGB 22.6 pg (27.0-31.0); MEAN CORPUSCULAR HGB CONC 30.4 g/dl (33.0-37.0); MEAN PLATELET VOLUME 9.2 fl (9.6-12.3); MONO # 0.2 10*3/uL (0.1-1.0); MONO % 6.2 % (3.0-9.0); NEUT # 2.2 10*3/uL (2.3-7.9); NEUT % 62.3 % (47.0-73.0); PLATELET COUNT AUTOMATED 195 10*3/uL (130-400); RED BLOOD COUNT 4.02 10*6/uL (4.10-5.10); RED CELL DISTRI WIDTH 18.8 % (0-14.5); WHITE BLOOD COUNT 3.6 10*3/uL (4.8-10.8)
[2016-11-30 06:18] LABS: ALBUMIN 2.6 gm/dl (3.1-4.5); BUN 6 mg/dl (7-24); CHLORIDE 103 mmol/L (98-107); CREATININE 0.44 mg/dL (0.55-1.02); MAGNESIUM 1.9 mg/dL (1.5-2.1); PHOSPHOROUS 3.2 mg/dL (2.5-4.9); POTASSIUM 3.7 mmol/L (3.5-5.1); SODIUM 136 mmol/L (136-145)
--- NOTE | 2016-11-30 06:32 | NUR ---
DR. BRENNER AWARE OF PATIENTS CRITICAL LOW CALCIUM AT 6.7
[2016-11-30 08:00] VITALS: BP 109/61
[2016-11-30 12:00] VITALS: BP 136/61
[2016-11-30 16:00] VITALS: BP 155/64
[2016-11-30 20:00] VITALS: BP 189/64
--- NOTE | 2016-11-30 21:00 | NUR ---
PT STATES THAT TYLENOL WAS NOT EFFECTIVE FOR ANY PAIN RELIEF. DR. BRENNER NOTIFIED OF NEED FOR STRONGER PAIN MED. TO PUT ORDERS IN.
--- NOTE | 2016-11-30 23:00 | NUR ---
PT STATES THAT PAIN MED WAS EFFECTIVE FOR PAIN RELIEF. PAIN IS AT A 0/10. C/O HEARTBURN. MILK OFFERED AND REFUSED. PT STATES SHE DOES NOT REQUIRE ANY MEDICATION AT THIS TIME FOR RELIEF. RESTING QUIETLY IN BED.
[2016-12-01] VITALS: BP 171/72
--- NOTE | 2016-12-01 00:06 | NUR ---
PT HAD SM EMESIS OF UNDIGESTED FOOD. MEDICATED WITH PRN ZOFRAN IVP ORDERED. PT HR ELEVATED AT THIS TIME. ASSISTED TO BR THEN BACK TO BED. IV CIPRO INFUSING WITHOUT DIFF. WILL CONT. TO MONITOR PT STATUS.
--- NOTE | 2016-12-01 01:10 | NUR ---
PT STATES THAT PRN ZOFRAN WAS EFFECTIVE FOR N/V. NO FURTHER C/O VOICED.
--- NOTE | 2016-12-01 05:30 | NUR ---
PATIENT REPORTS THAT SHE PULLED OFF MEDICAL TAPE TO UPPER LEFT ARM, REMOVING A PORTION OF FRAGILE BRUISED SKIN. BLEEDING SKIN TEAR TO THE ARM NOTED, SEE WOUND ASSESSMENT FOR DETAILS.
[2016-12-01 06:00] LABS: BASO % 0.2 % (0.0-1.0); EOS % 0.8 % (1.0-4.0); HEMATOCRIT 33.7 % (37.0-47.0); LYMPH # 1.4 10*3/uL (1.3-4.4); LYMPH % 30.4 % (27.0-41.0); MEAN CELL VOLUME 74.2 fl (81.0-99.0); MEAN CORPUSCULAR HGB CONC 29.7 g/dl (33.0-37.0); MEAN PLATELET VOLUME 9.2 fl (9.6-12.3); MONO # 0.3 10*3/uL (0.1-1.0); NEUT # 2.9 10*3/uL (2.3-7.9); NEUT % 61.4 % (47.0-73.0); PLATELET COUNT AUTOMATED 212 10*3/uL (130-400); RED BLOOD COUNT 4.54 10*6/uL (4.10-5.10); RED CELL DISTRI WIDTH 18.7 % (0-14.5); WHITE BLOOD COUNT 4.7 10*3/uL (4.8-10.8)
[2016-12-01 06:28] LABS: ALBUMIN 2.9 gm/dl (3.1-4.5); BUN 6 mg/dl (7-24); CHLORIDE 97 mmol/L (98-107); CREATININE 0.51 mg/dL (0.55-1.02); MAGNESIUM 1.8 mg/dL (1.5-2.1); PHOSPHOROUS 3.8 mg/dL (2.5-4.9); POTASSIUM 3.8 mmol/L (3.5-5.1); SODIUM 135 mmol/L (136-145)
[2016-12-01 08:00] VITALS: BP 161/79
[2016-12-01 12:00] VITALS: BP 162/69
[2016-12-01 16:00] VITALS: BP 170/60
[2016-12-01 20:00] VITALS: BP 140/62
--- NOTE | 2016-12-01 23:00 | NUR ---
ASSUMED CARE OF PT AT THIS TIME, RESPS EASY AND NONLABORED WTIH NO S/S OF DISTRESS CALL LIGHT WITH IN REACH
[2016-12-02] VITALS (11 sets, daily range): BP systolic 143–170; BP diastolic 52–75
--- NOTE | 2016-12-02 04:00 | NUR ---
RESTING IN BED WITH EYES CLOSED RESPS EASY AND NONLABORED WITH NO S/S OF DISTRESS CALL LIGHT WITH IN REACH
[2016-12-02 06:34] LABS: BASO % 0.3 % (0.0-1.0); EOS % 0.9 % (1.0-4.0); HEMATOCRIT 32.1 % (37.0-47.0); HEMOGLOBIN 9.7 g/dl (12.0-16.0); MEAN CELL VOLUME 74.5 fl (81.0-99.0); MEAN CORPUSCULAR HGB 22.5 pg (27.0-31.0); MEAN CORPUSCULAR HGB CONC 30.2 g/dl (33.0-37.0); MEAN PLATELET VOLUME 9.5 fl (9.6-12.3); MONO # 0.3 10*3/uL (0.1-1.0); MONO % 8.4 % (3.0-9.0); NEUT # 1.9 10*3/uL (2.3-7.9); NEUT % 58.1 % (47.0-73.0); PLATELET COUNT AUTOMATED 214 10*3/uL (130-400); RED BLOOD COUNT 4.31 10*6/uL (4.10-5.10); RED CELL DISTRI WIDTH 18.7 % (0-14.5); WHITE BLOOD COUNT 3.2 10*3/uL (4.8-10.8)
[2016-12-02 06:58] LABS: ALBUMIN 2.9 gm/dl (3.1-4.5); BUN 5 mg/dl (7-24); CHLORIDE 97 mmol/L (98-107); CREATININE 0.62 mg/dL (0.55-1.02); MAGNESIUM 1.4 mg/dL (1.5-2.1); PHOSPHOROUS 4.4 mg/dL (2.5-4.9); SODIUM 136 mmol/L (136-145)
[2016-12-02] MEDS ORDERED: OYSTER SHELL C1 EAC1 PO (12:15)
--- NOTE | 2016-12-02 14:15 | NUR ---
LEONARDO WHITESIDE [id number] Please refer to the physician's history and physical for past medical history, comorbid conditions, and allergies. Diagnosis: HYPOKALEMIA,HYPOMAGNESEMIA,HYPOCALCEMIA Tong Score: 19,LOW OR NO RISK WOUND DESCRIPTIONS: Location of the wound: left upper arm Type of wound: skin tear Thickness: Partial Size: 0.8cm x 0.8cm x 0.1cm Tunneling: none Undermining: none Sinus Tract: none Presence of Exudate: serosanguineous Amount: Light Color: Red Odor: None Periwound Skin Appearance: Normal Wound edges: approximated Pain (associated with wound): none at time of assessment How does patient state this happened? Pt stated it occurred when she removed the medical tape. Location of the wound: left lower arm Type of wound: skin tear Thickness: Partial Size: 0.4cm x 1.1cm x 0.1cm Tunneling: none Undermining: none Sinus Tract: none Presence of Exudate: serosanguineous Amount: Light Color: Red Odor: None Periwound Skin Appearance: Normal Wound edges: approximated Pain (associated with wound): none at time of assessment How does patient state this happened? Pt stated it occurred when she was done in surgery. Surface the patient is resting on: Position Pro SKIN PREVENTION RECOMMENDATION: 1. Pressure redistribution support surface as appropriate 2. Elevate heels 3. Remove boots/TEDS every shift and reapply 4. Head of bed 30 degrees as tolerated 5. Assess nutrition and hydration 6. Manage moisture 7. Avoid the use of containment devices while in bed 8. Use absorptive products on surfaces limit layers of linens on bed 9. Turn and reposition every 1-2 hours in bed and every 1 hour in chair as tolerated 10. Weight shifts every 15 minutes while up in chair 11. Offloading with pillows or device to keep heels elevated off bed 12. Monitor skin at least every shift 13. Inspect under medical devices twice a day WOUND TREATMENT RECOMMENDATIONS: Skin tear guideline cleanse with nss apply sureprep around wound vesatel to wound bed hydrogel to wound bed cover with optifoam gentle to left upper arm and left lower arm.
--- NOTE | 2016-12-02 15:49 | NUR ---
Discharge instructions reviewed with patient/family. Patient receptive and verbalizes understanding. Follow-up care arranged. Written instructions given to patient/family. KENISHA RIVERO
--- NOTE | 2016-12-02 16:05 | NUR ---
PATIENT REFUSES DISCHARGE WOUND PHOTOS. PATIENT STATES HER SKIN IS TOO SENSITIVE AND SHE DONT WANT TO REMOVE THE BANDAGE AGAIN.
== END 2016-12-02 16:42 | disposition home or self-care (01) | DRG 418 ==
LOC: ED 11:02 → EDHOLD 13:22 → 5E 13:22
PROVIDERS: Family Medicine; Internal Medicine Nephrology; Nurse Practitioner Family; Registered Nurse; Student in an Organized Health Care Education/Training Program; ADMIT Internal Medicine
PROC: 0FT44ZZ Resection of Gallbladder, Percutaneous Endoscopic Approach (ICD-10-PCS; principal; 2016-12-02)
DX: K82.8 Other specified diseases of gallbladder (principal); E44.0 Moderate protein-calorie malnutrition; E11.40 Type 2 diabetes mellitus with diabetic neuropathy, unspecified; E11.65 Type 2 diabetes mellitus with hyperglycemia; E87.1 Hypo-osmolality and hyponatremia; E87.8 Other disorders of electrolyte and fluid balance, not elsewhere classified; Z66 Do not resuscitate; Z51.5 Encounter for palliative care; K21.0 Gastro-esophageal reflux disease with esophagitis; E83.51 Hypocalcemia; E86.0 Dehydration; F17.200 Nicotine dependence, unspecified, uncomplicated; E78.5 Hyperlipidemia, unspecified; I10 Essential (primary) hypertension; E89.0 Postprocedural hypothyroidism; E87.6 Hypokalemia; E83.42 Hypomagnesemia; K81.1 Chronic cholecystitis; Z79.899 Other long term (current) drug therapy; Z90.710 Acquired absence of both cervix and uterus; Z80.52 Family history of malignant neoplasm of bladder; Z82.49 Family history of ischemic heart disease and other diseases of the circulatory system; Z80.1 Family history of malignant neoplasm of trachea, bronchus and lung; Z86.73 Personal history of transient ischemic attack (TIA), and cerebral infarction without residual deficits; Z98.42 Cataract extraction status, left eye; Z98.41 Cataract extraction status, right eye; Z79.1 Long term (current) use of non-steroidal anti-inflammatories (NSAID); Z79.84 Long term (current) use of oral hypoglycemic drugs; Z68.29 Body mass index [BMI] 29.0-29.9, adult

== ENCOUNTER → 2016-11-28 | Outpatient (CLI) | payer MEDICARE ==
[2016-11-28 10:59] LABS: IRON 24 ug/dL (50-170); TOTAL IRON BINDING CAPACITY 394 ug/dl (250-450)
== END | disposition home or self-care (01) ==
LOC: US 11-26 10:54 → LAB 00:50 → US 00:50
PROVIDERS: Internal Medicine
DX: D50.8 Other iron deficiency anemias (principal); R10.11 Right upper quadrant pain; R19.7 Diarrhea, unspecified; R11.2 Nausea with vomiting, unspecified

== ENCOUNTER → 2016-12-06 | Outpatient (CLI) | payer MEDICARE ==
[~2016-12-06] MED LIST changes: +HEARTBURN RELIE20 MG PO; +OYSTER SHELL C1 EAC1 PO; +REQUIP1 M1 PO
[2016-12-06 09:16] LABS: CREATININE 0.69 mg/dL (0.55-1.02)
== END | disposition home or self-care (01) ==
LOC: LAB 01:55 → CT 09:00 → LAB 09:00
PROVIDERS: Internal Medicine
DX: K44.9 Diaphragmatic hernia without obstruction or gangrene (principal); I25.10 Atherosclerotic heart disease of native coronary artery without angina pectoris; J98.11 Atelectasis; K76.9 Liver disease, unspecified; I71.4 Abdominal aortic aneurysm, without rupture; Z90.710 Acquired absence of both cervix and uterus; Z90.49 Acquired absence of other specified parts of digestive tract

== ENCOUNTER → 2017-01-10 | Outpatient (CLI) | payer MEDICARE ==
[~2017-01-10] MED LIST changes: +LOSARTAN-HCTZ1 EACH PO
[2017-01-10 16:38] LABS: BASO % 0.1 % (0.0-1.0); EOS % 0.1 % (1.0-4.0); HEMOGLOBIN 10.6 g/dl (12.0-16.0); LYMPH # 1.1 10*3/uL (1.3-4.4); LYMPH % 14.5 % (27.0-41.0); MEAN CELL VOLUME 73.3 fl (81.0-99.0); MEAN CORPUSCULAR HGB 22.8 pg (27.0-31.0); MEAN CORPUSCULAR HGB CONC 31.2 g/dl (33.0-37.0); MEAN PLATELET VOLUME 9.5 fl (9.6-12.3); MONO # 0.4 10*3/uL (0.1-1.0); MONO % 5.1 % (3.0-9.0); NEUT # 5.8 10*3/uL (2.3-7.9); NEUT % 79.8 % (47.0-73.0); PLATELET COUNT AUTOMATED 279 10*3/uL (130-400); RED BLOOD COUNT 4.64 10*6/uL (4.10-5.10); RED CELL DISTRI WIDTH 19.3 % (0-14.5); WHITE BLOOD COUNT 7.2 10*3/uL (4.8-10.8)
[2017-01-10 16:53] LABS: ALBUMIN 3.3 gm/dl (3.1-4.5); ALKALINE PHOSPHATASE 89 U/L (45-117); BUN 7 mg/dl (7-24); CHLORIDE 88 mmol/L (98-107); CREATININE 0.63 mg/dL (0.55-1.02); POTASSIUM 2.6 mmol/L (3.5-5.1); SGOT/AST 14 IU/L (3-35); SGPT/ALT 15 U/L (12-78); SODIUM 126 mmol/L (136-145); TOTAL PROTEIN 7.1 gm/dL (6.4-8.2)
== END | disposition home or self-care (01) ==
LOC: LAB 14:51 → CT 15:00
PROVIDERS: Internal Medicine
DX: R10.84 Generalized abdominal pain (principal); K46.9 Unspecified abdominal hernia without obstruction or gangrene; K76.0 Fatty (change of) liver, not elsewhere classified; I77.811 Abdominal aortic ectasia; K57.30 Diverticulosis of large intestine without perforation or abscess without bleeding; K76.89 Other specified diseases of liver; I71.4 Abdominal aortic aneurysm, without rupture; Z90.49 Acquired absence of other specified parts of digestive tract; Z90.710 Acquired absence of both cervix and uterus

== ENCOUNTER 2017-01-15 14:15 | Inpatient (IN) | payer MEDICARE ==
[~2017-01-15] VITALS: Ht 160 cm; Wt 65.9 kg
[~2017-01-15 14:15] MED LIST changes: -LOSARTAN-HCTZ1 EACH PO; -WELCHOL625 MG PO
[2017-01-15 14:22] VITALS: BP 159/79
--- NOTE | 2017-01-15 14:46 | NUR ---
AT THIS TIME THE PATIENT CAN NOT PROVIDE A URINE SAMPLE
[2017-01-15 14:51] LABS: BASO % 0.1 % (0.0-1.0); EOS % 0.2 % (1.0-4.0); HEMATOCRIT 34.9 % (37.0-47.0); HEMOGLOBIN 10.9 g/dl (12.0-16.0); LYMPH # 2.4 10*3/uL (1.3-4.4); LYMPH % 21.7 % (27.0-41.0); MEAN CELL VOLUME 72.4 fl (81.0-99.0); MEAN CORPUSCULAR HGB 22.6 pg (27.0-31.0); MEAN CORPUSCULAR HGB CONC 31.2 g/dl (33.0-37.0); MEAN PLATELET VOLUME 9.4 fl (9.6-12.3); MONO # 0.5 10*3/uL (0.1-1.0); MONO % 4.6 % (3.0-9.0); NEUT % 72.9 % (47.0-73.0); PLATELET COUNT AUTOMATED 330 10*3/uL (130-400); RED BLOOD COUNT 4.82 10*6/uL (4.10-5.10); RED CELL DISTRI WIDTH 19.1 % (0-14.5)
[2017-01-15 15:06] LABS: ALBUMIN 3.2 gm/dl (3.1-4.5); ALKALINE PHOSPHATASE 92 U/L (45-117); BUN 10 mg/dl (7-24); CHLORIDE 91 mmol/L (98-107); CREATININE 0.74 mg/dL (0.55-1.02); LIPASE 192 U/L (73-393); POTASSIUM 2.8 mmol/L (3.5-5.1); SGOT/AST 27 IU/L (3-35); SGPT/ALT 17 U/L (12-78); SODIUM 127 mmol/L (136-145)
[2017-01-15] MEDS ORDERED: LOSARTAN-HCTZ1 EACH PO (16:59)
[2017-01-15] MEDS ORDERED: LASIX20 MG PO (16:59)
[2017-01-15 17:02] VITALS: BP 147/63
--- NOTE | 2017-01-15 18:09 | NUR ---
SPOKE WITH REGARDING CONSULT. HE WANTS RESIDENT TO CALL HIM. ATTEMPTED TO CALL RESIDENT WITH NO ANSWER. LEFT MESSAGE ON VOICEMAIL.
[2017-01-15 19:54] LABS: BILIRUBIN NEGATIVE (NEGATIVE); BLOOD NEGATIVE (NEGATIVE); CLARITY SL CLOUDY (CLEAR); COLOR YELLOW (YELLOW); GLUCOSE NEGATIVE (NEGATIVE); KETONE NEGATIVE (NEGATIVE); LEUKO ESTERASE TRACE (NEGATIVE); NITRITE NEGATIVE (NEGATIVE); PH 7.5 (5.0-9.0); UROBILINOGEN 0.2 E.U./dl (0.2-1.0)
[2017-01-15 20:00] VITALS: BP 127/85
[2017-01-15 20:03] LABS: BACTERIA TRACE; EPITHELIAL CELLS 20-25; RBC 0-2 rbc/hpf (0-2)
[2017-01-16] VITALS: BP 145/72
[2017-01-16 06:40] LABS: BASO % 0.2 % (0.0-1.0); EOS # 0.1 10*3/uL (0.0-0.4); HEMATOCRIT 29.7 % (37.0-47.0); HEMOGLOBIN 9.5 g/dl (12.0-16.0); LYMPH # 1.8 10*3/uL (1.3-4.4); LYMPH % 30.8 % (27.0-41.0); MEAN CELL VOLUME 73.2 fl (81.0-99.0); MEAN CORPUSCULAR HGB 23.4 pg (27.0-31.0); MEAN PLATELET VOLUME 9.1 fl (9.6-12.3); MONO # 0.3 10*3/uL (0.1-1.0); MONO % 5.7 % (3.0-9.0); NEUT # 3.7 10*3/uL (2.3-7.9); NEUT % 61.8 % (47.0-73.0); PLATELET COUNT AUTOMATED 236 10*3/uL (130-400); RED BLOOD COUNT 4.06 10*6/uL (4.10-5.10); RED CELL DISTRI WIDTH 18.8 % (0-14.5)
[2017-01-16 07:19] LABS: ALBUMIN 2.7 gm/dl (3.1-4.5); BUN 6 mg/dl (7-24); CHLORIDE 97 mmol/L (98-107); CREATININE 0.47 mg/dL (0.55-1.02); LIPASE 168 U/L (73-393); SGOT/AST 11 IU/L (3-35); SGPT/ALT 13 U/L (12-78); SODIUM 133 mmol/L (136-145); TOTAL PROTEIN 5.8 gm/dL (6.4-8.2)
[2017-01-16 07:30] LABS: ALKALINE PHOSPHATASE 78 U/L (45-117); PHOSPHOROUS 3.7 mg/dL (2.5-4.9); THYROID STIM HORMONE (HS) 0.341 uIU/ml (0.358-4.75)
[2017-01-16 07:51] LABS: POTASSIUM 2.4 mmol/L (3.5-5.1)
--- NOTE | 2017-01-16 07:53 | NUR ---
NOTIFIED OF LAB RESULTS, NNO AT THIS TIME
[2017-01-16 08:00] VITALS: BP 142/51
--- NOTE | 2017-01-16 09:00 | NUR ---
Shut Off Worker in to talk to patient. Patient states lives at home with . There are few steps in the home. Physician: zay avila [facility] Home health services: none Patient's level of ADLs: INDEPENDENT Patient has working utilities: all working DME: none Follow-up physician's appointment after d/c: will be made by hospitalist nurse director upon discharge Does patient want to access PORTAL?: no Discharge plan discussed with patient, patient lives at home with , she states she is independent in adls and ambulation, patient states she will be going back home when able and denies any home needs. SEA PASCUAL
[2017-01-16 12:00] VITALS: BP 136/52
--- NOTE | 2017-01-16 14:59 | NUR ---
PHYSICAL THERAPY PAtient requests no PT this date, not feeling well. Thank you for this referral. Aurora Pimentel,PT
[2017-01-16 16:00] VITALS: BP 139/45
[2017-01-16 20:00] VITALS: BP 149/52
--- NOTE | 2017-01-16 20:42 | NUR ---
PT STATES SHE DOES NOT WANT TO TAKE THE QUESTRAN LIGHT AGAIN DUE TO THE TASTE AND TEXTURE.
--- NOTE | 2017-01-16 21:00 | NUR ---
RESTING IN BED WATCHING TV. RESPIRATIONS EASY. LUNGS DIMINISHED WITH PB CRACKLES. PULSE OX 96% RA. ABD SOFTLY DISTENDED WITH HYPERACTIVE BOWEL SOUNDS, DENIES N/V/D. NO BM SINCE DAY OF ADMISSION. BLE DISCOLORED (CHRONIC). OFFERED AND EDUCATED REGARDING TEDS, DECLINED. IV FLUIDS INFUSING PER ORDER. CALL LIGHT WITHIN REACH. NO VOICED COMPLAINTS
--- NOTE | 2017-01-16 22:04 | NUR ---
PT RECEIVED TYLENOL FOR STOMACH PAIN RATED 6/10.
--- NOTE | 2017-01-16 23:00 | NUR ---
PT IS RESTING COMFORTABLY. PT STATES DECREASED PAIN AFTER PAIN MED ADMINISTRATION. RATES PAIN 3/10.
[2017-01-17] VITALS: BP 151/54
--- NOTE | 2017-01-17 06:00 | NUR ---
SLEPT THROUGHOUT NIGHT WITH NO DISTRESS NOTED. RESPIRATIONS EASY. IV FLUIDS MAINTAINED PER ORDER. CALL LIGHT WITHIN REACH. NO VOICED COMPLAINTS THIS SHIFT
[2017-01-17 06:35] LABS: BASO % 0.2 % (0.0-1.0); EOS % 0.8 % (1.0-4.0); HEMOGLOBIN 8.6 g/dl (12.0-16.0); LYMPH # 1.5 10*3/uL (1.3-4.4); LYMPH % 30.7 % (27.0-41.0); MEAN CELL VOLUME 75.5 fl (81.0-99.0); MEAN CORPUSCULAR HGB 23.2 pg (27.0-31.0); MEAN CORPUSCULAR HGB CONC 30.7 g/dl (33.0-37.0); MONO # 0.3 10*3/uL (0.1-1.0); MONO % 6.1 % (3.0-9.0); NEUT % 61.8 % (47.0-73.0); PLATELET COUNT AUTOMATED 211 10*3/uL (130-400); RED BLOOD COUNT 3.71 10*6/uL (4.10-5.10); RED CELL DISTRI WIDTH 18.8 % (0-14.5); WHITE BLOOD COUNT 4.9 10*3/uL (4.8-10.8)
[2017-01-17 07:01] LABS: ALBUMIN 2.6 gm/dl (3.1-4.5); ALKALINE PHOSPHATASE 78 U/L (45-117); BUN 3 mg/dl (7-24); CHLORIDE 101 mmol/L (98-107); PHOSPHOROUS 2.6 mg/dL (2.5-4.9); POTASSIUM 3.3 mmol/L (3.5-5.1); SGOT/AST 15 IU/L (3-35); SGPT/ALT 16 U/L (12-78); SODIUM 136 mmol/L (136-145); TOTAL PROTEIN 5.6 gm/dL (6.4-8.2)
--- NOTE | 2017-01-17 07:04 | NUR ---
RECEIVED A CRITICAL CALCIUM LEVEL OF 6.6. CALLED AND MADE HOSPITALIST AWARE.
[2017-01-17 08:00] VITALS: BP 104/73
--- NOTE | 2017-01-17 09:24 | NUR ---
case management visits with patient, patient denies any home needs
--- NOTE | 2017-01-17 10:30 | NUR ---
PHYSICAL THERAPY PAtient reports she is 100 % (I) all functional mobility and has no PT skills/needs. D/c PT as patient requests. Thank you for this referral. Aurora Pimentel,PT
[2017-01-17] MEDS ORDERED: WELCHOL625 MG PO (10:49)
[2017-01-17 11:15] VITALS: BP 128/89
--- NOTE | 2017-01-17 11:24 | NUR ---
MISBAH DISCOTNINUED. DISCHARGE PAPERWORK REVIEWED AND PT AMBULATED OFF THE FLOOR TO PRIVATE CAR AFTER REFUSING A WHEELCHAIR.
== END 2017-01-17 11:24 | disposition home or self-care (01) | DRG 640 ==
LOC: ED 14:15 → EDHOLD 16:08 → 5E 16:08
PROVIDERS: Internal Medicine; Physician Assistant; ADMIT Internal Medicine
DX: E87.6 Hypokalemia (principal); E11.00 Type 2 diabetes mellitus with hyperosmolarity without nonketotic hyperglycemic-hyperosmolar coma (NKHHC); E86.0 Dehydration; E11.69 Type 2 diabetes mellitus with other specified complication; K52.9 Noninfective gastroenteritis and colitis, unspecified; E87.8 Other disorders of electrolyte and fluid balance, not elsewhere classified; E87.1 Hypo-osmolality and hyponatremia; E83.51 Hypocalcemia; E03.9 Hypothyroidism, unspecified; K21.9 Gastro-esophageal reflux disease without esophagitis; E78.5 Hyperlipidemia, unspecified; J43.9 Emphysema, unspecified; D50.9 Iron deficiency anemia, unspecified; I10 Essential (primary) hypertension; E83.42 Hypomagnesemia; F32.9 Major depressive disorder, single episode, unspecified; Z79.84 Long term (current) use of oral hypoglycemic drugs; Z79.899 Other long term (current) drug therapy; Z90.49 Acquired absence of other specified parts of digestive tract; Z72.0 Tobacco use; Z90.710 Acquired absence of both cervix and uterus; Z86.73 Personal history of transient ischemic attack (TIA), and cerebral infarction without residual deficits; Z82.49 Family history of ischemic heart disease and other diseases of the circulatory system; Z80.52 Family history of malignant neoplasm of bladder; Z80.1 Family history of malignant neoplasm of trachea, bronchus and lung; Z83.6 Family history of other diseases of the respiratory system; Z83.3 Family history of diabetes mellitus

== ENCOUNTER → 2017-01-15 | Outpatient (CLI) | payer MEDICARE ==
[~2017-01-15] MED LIST changes: +WELCHOL625 MG PO
[2017-01-15 11:47] LABS: BUN 9 mg/dl (7-24); CHLORIDE 91 mmol/L (98-107); CREATININE 0.77 mg/dL (0.55-1.02); POTASSIUM 2.8 mmol/L (3.5-5.1); SODIUM 128 mmol/L (136-145)
== END | disposition home or self-care (01) ==
LOC: LAB 11:06
PROVIDERS: Internal Medicine
DX: E87.1 Hypo-osmolality and hyponatremia (principal)

== ENCOUNTER → 2017-04-28 | Outpatient (CLI) | payer MEDICARE ==
[~2017-04-28] MED LIST changes: +LOSARTAN-HCTZ1 EACH PO; +WELCHOL625 MG PO
== END | disposition home or self-care (01) ==
LOC: RAD 12:34
DX: M81.0 Age-related osteoporosis without current pathological fracture (principal); Z90.710 Acquired absence of both cervix and uterus

== ENCOUNTER → 2017-07-25 | Outpatient (CLI) | payer MEDICARE ==
[2017-07-25 13:38] LABS: BASO % 0.2 % (0.0-1.0); EOS # 0.1 10*3/uL (0.0-0.4); EOS % 0.5 % (1.0-4.0); HEMATOCRIT 39.6 % (37.0-47.0); HEMOGLOBIN 12.3 g/dl (12.0-16.0); LYMPH % 28.6 % (27.0-41.0); MEAN CELL VOLUME 84.1 fl (81.0-99.0); MEAN CORPUSCULAR HGB 26.1 pg (27.0-31.0); MEAN CORPUSCULAR HGB CONC 31.1 g/dl (33.0-37.0); MEAN PLATELET VOLUME 9.6 fl (9.6-12.3); MONO # 0.5 10*3/uL (0.1-1.0); MONO % 4.9 % (3.0-9.0); NEUT # 6.9 10*3/uL (2.3-7.9); NEUT % 65.5 % (47.0-73.0); PLATELET COUNT AUTOMATED 274 10*3/uL (130-400); RED BLOOD COUNT 4.71 10*6/uL (4.10-5.10); RED CELL DISTRI WIDTH 16.6 % (0-14.5); WHITE BLOOD COUNT 10.5 10*3/uL (4.8-10.8)
[2017-07-25 13:52] LABS: ALBUMIN 3.5 gm/dl (3.1-4.5); ALKALINE PHOSPHATASE 87 U/L (45-117); BUN 5 mg/dl (7-24); CHLORIDE 96 mmol/L (98-107); CHOLESTEROL 148 mg/dL (<200); CREATININE 0.76 mg/dL (0.55-1.02); HDL CHOLESTEROL 39 mg/dl (40-60); LDL CHOLESTEROL 77 mg/dL (9-159); POTASSIUM 3.3 mmol/L (3.5-5.1); SGOT/AST 10 IU/L (3-35); SGPT/ALT 13 U/L (12-78); SODIUM 134 mmol/L (136-145); TOTAL PROTEIN 7.4 gm/dL (6.4-8.2); TRIGLYCERIDES 159 mg/dl (<150); VLDL CHOLESTEROL 32 mg/dL (6-40)
[2017-07-25 14:17] LABS: FREE T4 1.56 ng/dl (0.76-1.46)
== END | disposition home or self-care (01) ==
LOC: CT 13:00 → LAB 13:20
PROVIDERS: Internal Medicine
DX: I71.4 Abdominal aortic aneurysm, without rupture (principal); K55.1 Chronic vascular disorders of intestine; E11.42 Type 2 diabetes mellitus with diabetic polyneuropathy; E03.9 Hypothyroidism, unspecified; M81.0 Age-related osteoporosis without current pathological fracture; Z90.49 Acquired absence of other specified parts of digestive tract; Z90.710 Acquired absence of both cervix and uterus

== ENCOUNTER 2017-12-12 15:52 | Inpatient (IN) | payer MEDICARE ==
[~2017-12-12] VITALS: Ht 160 cm; Wt 54.5 kg
--- NOTE | ~2017-12-12 | EKG ---
[place], [place] ELECTROCARDIOGRAM REPORT NAME: LEONARDO WHITESIDE UNIT #: [id number] ROOM: 505 DOCTOR: EPIPHANY DRAFT REPORT BIRTHDATE: [birth year] [facility] Test Date: 2017-12-12 Test Time: 16:41:24 Pat Name: LEONARDO WHITESIDE Department: Room: 505 Gender: F Carton Forming Machine Operator: Chao Moran : 1940 Requested By: JULIA MASON Order Number: [id number] Reading MD: Corie Hart MD Measurements Intervals [place] Rate: 63 P: 48 ID: [id number] QRS: 57 QRSD: 100 T: 83 QT: 458 QTc: 469 Interpretive Statements Sinus rhythm Nprmal ECG Electronically Signed On 12-14-2017 12:24:16 PDT by Corie Hart MD CM:EKGRPT:ELECTROCARDIOGRAM REPORT [id number] JULIA MASON EPIPHANY DRAFT REPORT JULIA MASON
[2017-12-12] MEDS ORDERED: TYLENOL325 M1 PO (15:59)
[2017-12-12] MEDS ORDERED: ASPIR LOW81 MG PO (16:00)
[2017-12-12] MEDS ORDERED: LIPITOR40 MG PO (16:01)
[2017-12-12] MEDS ORDERED: ALENDRONATE SOD70 M1 PO (16:01)
[2017-12-12] MEDS ORDERED: PROBIOTIC1 EAC1 PO (16:02)
[2017-12-12 16:28] LABS: BASO % 0.1 % (0.0-1.0); EOS % 0.4 % (1.0-4.0); HEMATOCRIT 28.1 % (37.0-47.0); HEMOGLOBIN 8.7 g/dl (12.0-16.0); LYMPH # 1.4 10*3/uL (1.3-4.4); LYMPH % 20.2 % (27.0-41.0); MEAN CELL VOLUME 78.7 fl (81.0-99.0); MEAN CORPUSCULAR HGB 24.4 pg (27.0-31.0); MEAN PLATELET VOLUME 10.1 fl (9.6-12.3); MONO # 0.5 10*3/uL (0.1-1.0); MONO % 6.8 % (3.0-9.0); NEUT # 4.9 10*3/uL (2.3-7.9); NEUT % 72.2 % (47.0-73.0); PLATELET COUNT AUTOMATED 301 10*3/uL (130-400); RED BLOOD COUNT 3.57 10*6/uL (4.10-5.10); RED CELL DISTRI WIDTH 16.3 % (0-14.5); WHITE BLOOD COUNT 6.7 10*3/uL (4.8-10.8)
[2017-12-12 16:45] LABS: ALBUMIN 3.3 gm/dl (3.1-4.5); ALKALINE PHOSPHATASE 72 U/L (45-117); BUN 6 mg/dl (7-24); CHLORIDE 95 mmol/L (98-107); CREATININE 0.72 mg/dL (0.55-1.02); POTASSIUM 2.7 mmol/L (3.5-5.1); SGOT/AST 15 IU/L (3-35); SGPT/ALT 13 U/L (12-78); SODIUM 132 mmol/L (136-145); TOTAL PROTEIN 6.9 gm/dL (6.4-8.2)
[2017-12-12 16:47] LABS: TROPONIN I < 0.015 ng/ml (<0.045)
[2017-12-12 17:50] LABS: BILIRUBIN NEGATIVE (NEGATIVE); CLARITY CLEAR (CLEAR); COLOR YELLOW (YELLOW); GLUCOSE NEGATIVE (NEGATIVE); KETONE NEGATIVE (NEGATIVE); SPECIFIC GRAVITY 1.012 (1.005-1.030)
[2017-12-12 17:51] LABS: BLOOD NEGATIVE (NEGATIVE); LEUKO ESTERASE NEGATIVE (NEGATIVE); NITRITE NEGATIVE (NEGATIVE); UROBILINOGEN 0.2 E.U./dl (0.2-1.0)
[2017-12-12 18:00] VITALS: BP 115/59
[2017-12-12 18:06] VITALS: BP 139/51
[2017-12-12 18:09] LABS: BACTERIA TRACE; EPITHELIAL CELLS 35-40
[2017-12-12 18:10] LABS: RBC 0-2 rbc/hpf (0-2)
[2017-12-12] MEDS ORDERED: AMLODIPINE BESY10 MG PO (18:15)
[2017-12-12] MEDS ORDERED: GLUCOPHAGE1000 MG PO (18:50)
[2017-12-12 20:00] VITALS: BP 105/67
[2017-12-13] VITALS: BP 128/45
[2017-12-13 06:19] LABS: BASO % 0.2 % (0.0-1.0); EOS % 0.8 % (1.0-4.0); HEMOGLOBIN 7.3 g/dl (12.0-16.0); LYMPH # 2.1 10*3/uL (1.3-4.4); LYMPH % 41.3 % (27.0-41.0); MEAN CELL VOLUME 81.4 fl (81.0-99.0); MEAN CORPUSCULAR HGB 24.7 pg (27.0-31.0); MEAN CORPUSCULAR HGB CONC 30.4 g/dl (33.0-37.0); MEAN PLATELET VOLUME 10.1 fl (9.6-12.3); MONO # 0.3 10*3/uL (0.1-1.0); MONO % 6.4 % (3.0-9.0); NEUT # 2.6 10*3/uL (2.3-7.9); NEUT % 51.1 % (47.0-73.0); PLATELET COUNT AUTOMATED 230 10*3/uL (130-400); RED BLOOD COUNT 2.95 10*6/uL (4.10-5.10); RED CELL DISTRI WIDTH 16.4 % (0-14.5); WHITE BLOOD COUNT 5.2 10*3/uL (4.8-10.8)
[2017-12-13 06:26] LABS: ALBUMIN 2.8 gm/dl (3.1-4.5); ALKALINE PHOSPHATASE 58 U/L (45-117); BUN 5 mg/dl (7-24); CHLORIDE 104 mmol/L (98-107); CHOLESTEROL 87 mg/dL (<200); CREATININE 0.51 mg/dL (0.55-1.02); FREE T4 1.29 ng/dl (0.76-1.46); HDL CHOLESTEROL 35 mg/dl (40-60); LDL CHOLESTEROL 34 mg/dL (9-159); PHOSPHOROUS 3.5 mg/dL (2.5-4.9); POTASSIUM 3.4 mmol/L (3.5-5.1); SGOT/AST 13 IU/L (3-35); SGPT/ALT 12 U/L (12-78); SODIUM 140 mmol/L (136-145); TOTAL PROTEIN 5.6 gm/dL (6.4-8.2); TRIGLYCERIDES 89 mg/dl (<150); VLDL CHOLESTEROL 18 mg/dL (6-40)
[2017-12-13 06:30] LABS: THYROID STIM HORMONE (HS) 0.285 uIU/ml (0.358-4.75)
[2017-12-13 08:00] VITALS: BP 130/76
[2017-12-13 08:41] LABS: VITAMIN D, 25-HYDROXY 48.1 ng/mL (30-100)
[2017-12-13 12:00] VITALS: BP 135/51
== END 2017-12-13 14:47 | disposition home or self-care (01) | DRG 641 ==
LOC: ED 15:52 → EDHOLD 17:18 → 5E 17:39
PROVIDERS: Internal Medicine; Nurse Practitioner Family
DX: E87.6 Hypokalemia (principal); K55.1 Chronic vascular disorders of intestine; I77.4 Celiac artery compression syndrome; D50.9 Iron deficiency anemia, unspecified; E87.1 Hypo-osmolality and hyponatremia; E87.2 Acidosis; E11.40 Type 2 diabetes mellitus with diabetic neuropathy, unspecified; E87.8 Other disorders of electrolyte and fluid balance, not elsewhere classified; I10 Essential (primary) hypertension; I77.1 Stricture of artery; I71.4 Abdominal aortic aneurysm, without rupture; K21.9 Gastro-esophageal reflux disease without esophagitis; E78.5 Hyperlipidemia, unspecified; E03.9 Hypothyroidism, unspecified; R10.9 Unspecified abdominal pain; E11.65 Type 2 diabetes mellitus with hyperglycemia; E55.9 Vitamin D deficiency, unspecified; Z72.0 Tobacco use; Z86.73 Personal history of transient ischemic attack (TIA), and cerebral infarction without residual deficits; Z79.82 Long term (current) use of aspirin; Z90.710 Acquired absence of both cervix and uterus; Z90.49 Acquired absence of other specified parts of digestive tract; Z98.42 Cataract extraction status, left eye; Z98.41 Cataract extraction status, right eye; Z83.3 Family history of diabetes mellitus; Z82.49 Family history of ischemic heart disease and other diseases of the circulatory system; Z80.1 Family history of malignant neoplasm of trachea, bronchus and lung; Z80.52 Family history of malignant neoplasm of bladder; Z83.6 Family history of other diseases of the respiratory system; Z79.899 Other long term (current) drug therapy

== ENCOUNTER → 2018-01-06 | Outpatient (CLI) | payer MEDICARE ==
[~2018-01-06] MED LIST changes: +ALENDRONATE SOD70 M1 PO; +AMLODIPINE BESY10 MG PO; +ASPIR LOW81 MG PO; +LIPITOR40 MG PO; +PROBIOTIC1 EAC1 PO; +TYLENOL325 M1 PO
== END | disposition home or self-care (01) ==
LOC: US 14:39
DX: Z23 Encounter for immunization (principal); I65.23 Occlusion and stenosis of bilateral carotid arteries; I10 Essential (primary) hypertension; F17.200 Nicotine dependence, unspecified, uncomplicated

== ENCOUNTER → 2018-05-20 | Outpatient (CLI) | payer MEDICARE ==
[~2018-05-20] MED LIST changes: +CARVEDILOL3.125 MG PO; +CYPROHEPTADINE H4 M1 PO; +ENOXAPARIN60 MG/0.2 SC; +FEOSOL325 MG PO; +FUROSEMIDE10 MG/1 M1 IV; +LEVOXYL112 MCG PO; +MAG6464 MG PO; +MAGNESIUM; +PANTOPRAZOLE SO40 MG PO; +PLAVIX75 M1 PO; -SYNTHROID,LEV125 MCG PO
[2018-05-20 13:04] LABS: HEMATOCRIT 32.3 % (37.0-47.0); HEMOGLOBIN 9.4 g/dl (12.0-16.0); MEAN CELL VOLUME 81.4 fl (81.0-99.0); MEAN CORPUSCULAR HGB 23.7 pg (27.0-31.0); MEAN CORPUSCULAR HGB CONC 29.1 g/dl (33.0-37.0); MEAN PLATELET VOLUME 9.7 fl (9.6-12.3); RED BLOOD COUNT 3.97 10*6/uL (4.10-5.10); WHITE BLOOD COUNT 8.3 10*3/uL (4.8-10.8)
== END | disposition home or self-care (01) ==
LOC: LAB 12:39
PROVIDERS: Internal Medicine
DX: D50.9 Iron deficiency anemia, unspecified (principal); E83.42 Hypomagnesemia

== ENCOUNTER 2019-03-01 16:30 | Inpatient (IN) | payer MEDICARE ==
[~2019-03-01] VITALS: Ht 160 cm; Wt 56.8 kg
[2019-03-01 16:33] VITALS: BP 173/60
[2019-03-01 17:22] VITALS: BP 142/49
[2019-03-01 17:30] LABS: HEMATOCRIT 22.3 % (37.0-47.0); MEAN CELL VOLUME 92.5 fl (81.0-99.0); MEAN CORPUSCULAR HGB 25.3 pg (27.0-31.0); MEAN CORPUSCULAR HGB CONC 27.4 g/dl (33.0-37.0); MEAN PLATELET VOLUME 8.7 fl (9.6-12.3); PLATELET COUNT AUTOMATED 236 10*3/uL (130-400); RED BLOOD COUNT 2.41 10*6/uL (4.10-5.10); RED CELL DISTRI WIDTH 15.1 % (0-14.5); WHITE BLOOD COUNT 4.5 10*3/uL (4.8-10.8)
[2019-03-01 17:42] LABS: HEMOGLOBIN 6.1 g/dl (12.0-16.0)
[2019-03-01 17:45] LABS: ALBUMIN 3.2 gm/dl (3.1-4.5); ALKALINE PHOSPHATASE 66 U/L (45-117); BUN 10 mg/dl (7-24); CHLORIDE 98 mmol/L (98-107); CREATININE 0.57 mg/dL (0.55-1.02); IRON 61 ug/dL (50-170); LIPASE 196 U/L (73-393); POTASSIUM 3.9 mmol/L (3.5-5.1); SGOT/AST 15 IU/L (3-35); SGPT/ALT 22 U/L (12-78); SODIUM 130 mmol/L (136-145); TOTAL IRON BINDING CAPACITY 391 ug/dl (250-450); TOTAL PROTEIN 5.9 gm/dL (6.4-8.2)
[2019-03-01 17:48] LABS: TROPONIN I < 0.015 ng/ml (<0.045)
[2019-03-01 17:52] LABS: TOTAL CELLS COUNTED 100 #CELLS
[2019-03-01 17:53] LABS: PLATELET SUFFICIENCY NORMAL (NORMAL); POLYCHROMASIA SLIGHT
[2019-03-01 18:03] LABS: ACT PARTIAL THROMBO TIME 25.5 SECONDS (20.0-32.1); INTERNATIONAL NORM RATIO 0.9 (2.0-3.5)
[2019-03-01 18:11] LABS: FERRITIN 13.5 ng/mL (10.0-291.0)
[2019-03-01 19:00] VITALS: BP 113/42
--- NOTE | 2019-03-01 19:16 | NUR ---
BLOOD INITIATED ON BLOOD WARMER DUE TO PATIENT HAVING REACTION TO COLD BLOOD PER BLOOD BANK.
[2019-03-01 19:42] VITALS: BP 144/40
--- NOTE | 2019-03-01 19:42 | NUR ---
A 78, admitted to , under the services of ABBY Downs DO with a diagnosis of SYMPOTMATIC ANEMIA. Chief complaint is WEAKNESS. Patient arrived via bed from ER. Monitor applied. Initial assessment completed. Vital signs taken and recorded. ABBY DOWNS DO notified of admission to the unit. Orders received. See assessment for past medical history, medications and allergies. Patient and/or family oriented to unit. [address] visitation policy reviewed. Clothing/patient valuable form completed. JUDY MCBRIDE
[2019-03-01 20:35] VITALS: BP 144/40
--- NOTE | 2019-03-01 20:45 | NUR ---
DR. FRIEDMAN ON FLOOR AND NOTIFIED OF PT'S NEW CONSULT. PT DOES NOT WISH TO HAVE ANY TESTING/PROCEDURES DONE TO FIND SOURCE OF BLEEDING. V.O. RCVD FOR REGULAR DIET ORDER.
[2019-03-01 22:11] VITALS: BP 129/51
--- NOTE | 2019-03-01 23:45 | NUR ---
PT COMPLAINING OF LEG CRAMPS SPOKE W DR BARCLAY ORDERED REQUIP 1MG PO HS
[2019-03-02] VITALS: BP 131/57
[2019-03-02 06:44] LABS: BASO % 0.3 % (0.0-1.0); EOS # 0.1 10*3/uL (0.0-0.4); EOS % 1.9 % (1.0-4.0); HEMATOCRIT 25.4 % (37.0-47.0); HEMOGLOBIN 7.5 g/dl (12.0-16.0); LYMPH # 0.6 10*3/uL (1.3-4.4); LYMPH % 15.9 % (27.0-41.0); MEAN CELL VOLUME 90.7 fl (81.0-99.0); MEAN CORPUSCULAR HGB 26.8 pg (27.0-31.0); MEAN CORPUSCULAR HGB CONC 29.5 g/dl (33.0-37.0); MEAN PLATELET VOLUME 9.3 fl (9.6-12.3); MONO # 0.4 10*3/uL (0.1-1.0); MONO % 9.7 % (3.0-9.0); NEUT # 2.7 10*3/uL (2.3-7.9); NEUT % 71.9 % (47.0-73.0); PLATELET COUNT AUTOMATED 202 10*3/uL (130-400); RED CELL DISTRI WIDTH 15.1 % (0-14.5); WHITE BLOOD COUNT 3.7 10*3/uL (4.8-10.8)
[2019-03-02 06:54] LABS: ALBUMIN 2.8 gm/dl (3.1-4.5); BUN 8 mg/dl (7-24); CHLORIDE 101 mmol/L (98-107); CHOLESTEROL 95 mg/dL (<200); PHOSPHOROUS 4.5 mg/dL (2.5-4.9); POTASSIUM 3.9 mmol/L (3.5-5.1); SGOT/AST 15 IU/L (3-35); SGPT/ALT 19 U/L (12-78); SODIUM 134 mmol/L (136-145); TRIGLYCERIDES 71 mg/dl (<150); VLDL CHOLESTEROL 14 mg/dL (6-40)
[2019-03-02 07:01] LABS: ALKALINE PHOSPHATASE 55 U/L (45-117); FREE T4 1.12 ng/dl (0.76-1.46); HDL CHOLESTEROL 52 mg/dl (40-60); LDL CHOLESTEROL 29 mg/dL (9-159); TOTAL PROTEIN 5.5 gm/dL (6.4-8.2)
[2019-03-02] MEDS ORDERED: K-TAB10 MEQ PO (07:22)
[2019-03-02 08:00] VITALS: BP 126/42
[2019-03-02 08:26] VITALS: BP 118/58
--- NOTE | 2019-03-02 09:00 | NUR ---
Second Mate in to talk to patient. Patient states lives at home with . There are few steps in the home. Physician: aaron naranjo [facility]: [facility] Home health services: none Patient's level of ADLs: INDEPENDENT Patient has working utilities: all working DME: walker Follow-up physician's appointment after d/c: will be made by hospitalist nurse director upon discharge Does patient want to access PORTAL?: no Discharge plan discussed with patient, she states she lives at home with , she states she is independent with a walker, she states she will return home when medically stable, discussed with her [facility] and educated her on their services, she declines any home needs at this time. SEA PASCUAL
[2019-03-02] MEDS ORDERED: POTASSIUM CHLO10 ME5 PO (09:30)
--- NOTE | 2019-03-02 09:31 | NUR ---
PHONED MIKEY AVALOS PHARMACIST FOR CURRENT LIST OF HOME MEDS. MED REC UPDATED/CORRECTED WITH THIS INFORMATION. PER PATIENT, SHE USES NO OTHER PHARMACIES AND DOES NOT TAKE ANYTHING OTC OR ANY MED THAT DOES NOT COME FROM THAT PHARMACY.
--- NOTE | 2019-03-02 11:13 | NUR ---
ADMINISTERED MILK OF MAGNESIA FOR CONSTIPATION. DISCHARGE ORDERS ENTERED BY HOSPITALISTS, PREPARING PATIENT FOR DISCHARGE.
--- NOTE | 2019-03-02 11:41 | NUR ---
Discharge instructions reviewed with patient. Patient receptive and verbalizes understanding. Follow-up care arranged. Written instructions given to patient. JAROD RODNEY
--- NOTE | 2019-03-02 11:52 | NUR ---
[facility]OMPANIED BY [facility], FOR TRANSPORT HOME BY PRIVATE VEHICLE WITH HER .
== END 2019-03-02 11:52 | disposition home or self-care (01) | DRG 811 ==
LOC: ED 16:30 → EDHOLD 18:35 → 4E 18:35
PROVIDERS: Emergency Medicine; Hospitalist; ADMIT Internal Medicine
PROC: 30233N1 Transfusion of Nonautologous Red Blood Cells into Peripheral Vein, Percutaneous Approach (ICD-10-PCS; principal; 2019-03-01)
DX: D64.9 Anemia, unspecified (principal); E43 Unspecified severe protein-calorie malnutrition; E87.1 Hypo-osmolality and hyponatremia; I25.10 Atherosclerotic heart disease of native coronary artery without angina pectoris; K21.9 Gastro-esophageal reflux disease without esophagitis; E03.9 Hypothyroidism, unspecified; E78.5 Hyperlipidemia, unspecified; G25.81 Restless legs syndrome; D72.819 Decreased white blood cell count, unspecified; I10 Essential (primary) hypertension; E11.42 Type 2 diabetes mellitus with diabetic polyneuropathy; E11.65 Type 2 diabetes mellitus with hyperglycemia; F17.210 Nicotine dependence, cigarettes, uncomplicated; Z79.899 Other long term (current) drug therapy; Z86.73 Personal history of transient ischemic attack (TIA), and cerebral infarction without residual deficits; Z80.52 Family history of malignant neoplasm of bladder; Z80.1 Family history of malignant neoplasm of trachea, bronchus and lung; Z82.49 Family history of ischemic heart disease and other diseases of the circulatory system; Z83.6 Family history of other diseases of the respiratory system; Z90.49 Acquired absence of other specified parts of digestive tract; Z90.710 Acquired absence of both cervix and uterus; Z98.42 Cataract extraction status, left eye; Z98.41 Cataract extraction status, right eye; Z95.820 Peripheral vascular angioplasty status with implants and grafts; Z68.37 Body mass index [BMI] 37.0-37.9, adult

== ENCOUNTER 2019-03-26 15:51 | Inpatient (IN) | payer MEDICARE ==
[~2019-03-26] VITALS: Ht 160 cm; Wt 57.3 kg
[~2019-03-26 15:51] MED LIST changes: +K-TAB10 MEQ PO; +POTASSIUM CHLO10 ME5 PO
[2019-03-26 16:02] VITALS: BP 176/54
[2019-03-26 17:34] LABS: HEMATOCRIT 22.3 % (37.0-47.0); MEAN CELL VOLUME 97.4 fl (81.0-99.0); MEAN CORPUSCULAR HGB 27.9 pg (27.0-31.0); MEAN CORPUSCULAR HGB CONC 28.7 g/dl (33.0-37.0); PLATELET COUNT AUTOMATED 249 10*3/uL (130-400); RED BLOOD COUNT 2.29 10*6/uL (4.10-5.10); WHITE BLOOD COUNT 5.3 10*3/uL (4.8-10.8)
[2019-03-26 17:39] LABS: HEMOGLOBIN 6.4 g/dl (12.0-16.0)
[2019-03-26] MEDS ORDERED: AMOXICILLIN500 M2 PO (17:40)
[2019-03-26] MEDS ORDERED: LOSARTAN POTASS50 M1 PO (17:41)
[2019-03-26] MEDS ORDERED: HYDROCHLOROTH12.5 M3 PO (17:42)
[2019-03-26 17:45] VITALS: BP 144/55
[2019-03-26 17:45] LABS: ACT PARTIAL THROMBO TIME 24.7 SECONDS (20.0-32.1); INTERNATIONAL NORM RATIO 0.9 (2.0-3.5)
[2019-03-26 17:49] LABS: ALBUMIN 3.2 gm/dl (3.1-4.5); ALKALINE PHOSPHATASE 80 U/L (45-117); BUN 16 mg/dl (7-24); CHLORIDE 95 mmol/L (98-107); CREATININE 0.66 mg/dL (0.55-1.02); POTASSIUM 3.9 mmol/L (3.5-5.1); SGOT/AST 21 IU/L (3-35); SGPT/ALT 25 U/L (12-78); SODIUM 128 mmol/L (136-145); TOTAL PROTEIN 6.2 gm/dL (6.4-8.2)
[2019-03-26 17:54] LABS: PLATELET SUFFICIENCY NORMAL (NORMAL); POLYCHROMASIA SLIGHT; TOTAL CELLS COUNTED 100 #CELLS
[2019-03-26 17:55] LABS: BURR CELLS FEW
[2019-03-26 20:00] VITALS: BP 95/41
[2019-03-27] VITALS (15 sets, daily range): BP systolic 94–155; BP diastolic 33–64
[2019-03-27 07:54] LABS: MEAN CELL VOLUME 97.6 fl (81.0-99.0); MEAN CORPUSCULAR HGB 27.7 pg (27.0-31.0); MEAN CORPUSCULAR HGB CONC 28.4 g/dl (33.0-37.0); MEAN PLATELET VOLUME 9.2 fl (9.6-12.3); PLATELET COUNT AUTOMATED 225 10*3/uL (130-400); RED BLOOD COUNT 2.06 10*6/uL (4.10-5.10)
[2019-03-27 07:58] LABS: HEMATOCRIT 20.1 % (37.0-47.0); HEMOGLOBIN 5.7 g/dl (12.0-16.0)
[2019-03-27 08:05] LABS: INTERNATIONAL NORM RATIO 0.9 (2.0-3.5)
[2019-03-27 08:13] LABS: ALBUMIN 2.9 gm/dl (3.1-4.5); BUN 12 mg/dl (7-24); CHLORIDE 98 mmol/L (98-107); POTASSIUM 3.5 mmol/L (3.5-5.1); SGOT/AST 13 IU/L (3-35); SGPT/ALT 21 U/L (12-78); SODIUM 129 mmol/L (136-145)
[2019-03-27 08:16] LABS: ALKALINE PHOSPHATASE 65 U/L (45-117); CREATININE 0.52 mg/dL (0.55-1.02); PHOSPHOROUS 3.7 mg/dL (2.5-4.9); TOTAL PROTEIN 5.4 gm/dL (6.4-8.2)
[2019-03-27 09:04] LABS: PLATELET SUFFICIENCY NORMAL (NORMAL); TOTAL CELLS COUNTED 100 #CELLS
[2019-03-27 09:05] LABS: POLYCHROMASIA SLIGHT
[2019-03-27 19:19] LABS: HEMATOCRIT 23.3 % (37.0-47.0)
[2019-03-28] VITALS (8 sets, daily range): BP systolic 110–158; BP diastolic 47–83
[2019-03-28 00:05] LABS: HEMATOCRIT 24.9 % (37.0-47.0); HEMOGLOBIN 7.8 g/dl (12.0-16.0)
[2019-03-28 06:03] LABS: BUN 8 mg/dl (7-24); CHLORIDE 98 mmol/L (98-107); CREATININE 0.51 mg/dL (0.55-1.02); POTASSIUM 3.7 mmol/L (3.5-5.1); SODIUM 130 mmol/L (136-145)
[2019-03-28 06:25] LABS: BASO % 0.2 % (0.0-1.0); EOS % 0.9 % (1.0-4.0); HEMATOCRIT 26.5 % (37.0-47.0); HEMOGLOBIN 8.2 g/dl (12.0-16.0); LYMPH # 0.8 10*3/uL (1.3-4.4); LYMPH % 17.7 % (27.0-41.0); MEAN CORPUSCULAR HGB 28.9 pg (27.0-31.0); MEAN CORPUSCULAR HGB CONC 30.9 g/dl (33.0-37.0); MEAN PLATELET VOLUME 9.1 fl (9.6-12.3); MONO # 0.3 10*3/uL (0.1-1.0); NEUT # 3.4 10*3/uL (2.3-7.9); PLATELET COUNT AUTOMATED 210 10*3/uL (130-400); RED BLOOD COUNT 2.84 10*6/uL (4.10-5.10); RED CELL DISTRI WIDTH 16.3 % (0-14.5); WHITE BLOOD COUNT 4.6 10*3/uL (4.8-10.8)
[2019-03-28 06:31] LABS: MEAN CELL VOLUME 93.3 fl (81.0-99.0)
[2019-03-29] VITALS: BP 113/60
[2019-03-29 06:11] LABS: BUN 8 mg/dl (7-24); CHLORIDE 96 mmol/L (98-107); CREATININE 0.63 mg/dL (0.55-1.02); POTASSIUM 3.8 mmol/L (3.5-5.1); SODIUM 132 mmol/L (136-145)
[2019-03-29 06:12] LABS: BASO % 0.2 % (0.0-1.0); EOS # 0.1 10*3/uL (0.0-0.4); EOS % 2.1 % (1.0-4.0); HEMATOCRIT 28.1 % (37.0-47.0); HEMOGLOBIN 8.5 g/dl (12.0-16.0); LYMPH # 0.9 10*3/uL (1.3-4.4); LYMPH % 19.4 % (27.0-41.0); MEAN CELL VOLUME 92.1 fl (81.0-99.0); MEAN CORPUSCULAR HGB 27.9 pg (27.0-31.0); MEAN CORPUSCULAR HGB CONC 30.2 g/dl (33.0-37.0); MEAN PLATELET VOLUME 8.6 fl (9.6-12.3); MONO # 0.4 10*3/uL (0.1-1.0); MONO % 8.1 % (3.0-9.0); NEUT # 3.3 10*3/uL (2.3-7.9); NEUT % 69.8 % (47.0-73.0); PLATELET COUNT AUTOMATED 210 10*3/uL (130-400); RED BLOOD COUNT 3.05 10*6/uL (4.10-5.10); RED CELL DISTRI WIDTH 15.8 % (0-14.5); WHITE BLOOD COUNT 4.7 10*3/uL (4.8-10.8)
[2019-03-29 08:00] VITALS: BP 128/72
[2019-03-29 12:00] VITALS: BP 116/50
[2019-03-29 16:07] VITALS: BP 145/38
[2019-03-29 20:00] VITALS: BP 152/54
[2019-03-30] VITALS: BP 134/40
[2019-03-30 06:19] LABS: BASO % 0.2 % (0.0-1.0); EOS # 0.1 10*3/uL (0.0-0.4); HEMATOCRIT 27.7 % (37.0-47.0); HEMOGLOBIN 8.4 g/dl (12.0-16.0); LYMPH % 22.3 % (27.0-41.0); MEAN CELL VOLUME 91.7 fl (81.0-99.0); MEAN CORPUSCULAR HGB 27.8 pg (27.0-31.0); MEAN CORPUSCULAR HGB CONC 30.3 g/dl (33.0-37.0); MEAN PLATELET VOLUME 9.3 fl (9.6-12.3); MONO # 0.4 10*3/uL (0.1-1.0); MONO % 7.8 % (3.0-9.0); PLATELET COUNT AUTOMATED 203 10*3/uL (130-400); RED BLOOD COUNT 3.02 10*6/uL (4.10-5.10); RED CELL DISTRI WIDTH 15.3 % (0-14.5); WHITE BLOOD COUNT 4.5 10*3/uL (4.8-10.8)
[2019-03-30 06:50] LABS: ALBUMIN 2.9 gm/dl (3.1-4.5); BUN 11 mg/dl (7-24); CHLORIDE 97 mmol/L (98-107); CREATININE 0.56 mg/dL (0.55-1.02); POTASSIUM 3.4 mmol/L (3.5-5.1); SGOT/AST 17 IU/L (3-35); SGPT/ALT 25 U/L (12-78); SODIUM 131 mmol/L (136-145)
[2019-03-30 06:52] LABS: ALKALINE PHOSPHATASE 75 U/L (45-117); TOTAL PROTEIN 5.5 gm/dL (6.4-8.2)
[2019-03-30 08:00] VITALS: BP 150/70
== END 2019-03-30 10:53 | disposition left against medical advice (07) | DRG 377 ==
LOC: ED 15:51 → EDHOLD 17:09 → 4E 17:09
PROVIDERS: Emergency Medicine; Family Medicine; Internal Medicine; Student in an Organized Health Care Education/Training Program; ADMIT Emergency Medicine
PROC: 30233N1 Transfusion of Nonautologous Red Blood Cells into Peripheral Vein, Percutaneous Approach (ICD-10-PCS; principal; 2019-03-27)
PROC: 0DB68ZX Excision of Stomach, Via Natural or Artificial Opening Endoscopic, Diagnostic (ICD-10-PCS; 2019-03-28)
DX: K29.71 Gastritis, unspecified, with bleeding (principal); E43 Unspecified severe protein-calorie malnutrition; I77.4 Celiac artery compression syndrome; E87.1 Hypo-osmolality and hyponatremia; K55.1 Chronic vascular disorders of intestine; D50.0 Iron deficiency anemia secondary to blood loss (chronic); K21.9 Gastro-esophageal reflux disease without esophagitis; E11.42 Type 2 diabetes mellitus with diabetic polyneuropathy; K44.9 Diaphragmatic hernia without obstruction or gangrene; Z53.29 Procedure and treatment not carried out because of patient's decision for other reasons; E78.5 Hyperlipidemia, unspecified; I10 Essential (primary) hypertension; E03.9 Hypothyroidism, unspecified; I71.4 Abdominal aortic aneurysm, without rupture; E11.65 Type 2 diabetes mellitus with hyperglycemia; G25.81 Restless legs syndrome; I25.10 Atherosclerotic heart disease of native coronary artery without angina pectoris; I87.2 Venous insufficiency (chronic) (peripheral); E87.8 Other disorders of electrolyte and fluid balance, not elsewhere classified; M81.0 Age-related osteoporosis without current pathological fracture; E83.41 Hypermagnesemia; F17.210 Nicotine dependence, cigarettes, uncomplicated; Z68.22 Body mass index [BMI] 22.0-22.9, adult; Z86.73 Personal history of transient ischemic attack (TIA), and cerebral infarction without residual deficits; Z90.49 Acquired absence of other specified parts of digestive tract; Z90.710 Acquired absence of both cervix and uterus; Z98.42 Cataract extraction status, left eye; Z98.41 Cataract extraction status, right eye; Z80.52 Family history of malignant neoplasm of bladder; Z80.1 Family history of malignant neoplasm of trachea, bronchus and lung; Z83.6 Family history of other diseases of the respiratory system; Z82.49 Family history of ischemic heart disease and other diseases of the circulatory system; Z79.899 Other long term (current) drug therapy

== ENCOUNTER → 2019-04-09 | Day surgery (SDC) | payer MEDICARE ==
[~2019-04-09] VITALS: Ht 160 cm; Wt 56.2 kg
[~2019-04-09] MED LIST changes: +AMOXICILLIN500 M2 PO; +HYDROCHLOROTH12.5 M3 PO
[2019-04-09 13:04] VITALS: BP 177/49
[2019-04-09 15:24] VITALS: BP 146/52
[2019-04-09 15:37] VITALS: BP 157/51
[2019-04-09 15:47] VITALS: BP 147/48
== END | disposition home or self-care (01) ==
LOC: SDC 04-06 10:15
DX: K63.5 Polyp of colon (principal); D64.9 Anemia, unspecified; I25.10 Atherosclerotic heart disease of native coronary artery without angina pectoris; I10 Essential (primary) hypertension; F32.9 Major depressive disorder, single episode, unspecified; E11.9 Type 2 diabetes mellitus without complications; Z98.890 Other specified postprocedural states; Z95.5 Presence of coronary angioplasty implant and graft; Z79.899 Other long term (current) drug therapy; Z86.73 Personal history of transient ischemic attack (TIA), and cerebral infarction without residual deficits; Z86.010 Personal history of colon polyps; Z83.3 Family history of diabetes mellitus; Z82.49 Family history of ischemic heart disease and other diseases of the circulatory system

== ENCOUNTER 2019-05-04 11:12 | Emergency (ER) | payer MEDICARE ==
[~2019-05-04] VITALS: Ht 160 cm; Wt 59.4 kg
[2019-05-04 14:12] VITALS: BP 156/52
== END 2019-05-04 14:44 | disposition home or self-care (01) ==
LOC: ED 11:12
DX: S69.91XA Unspecified injury of right wrist, hand and finger(s), initial encounter (principal); S89.91XA Unspecified injury of right lower leg, initial encounter; S59.912A Unspecified injury of left forearm, initial encounter; E03.9 Hypothyroidism, unspecified; K21.9 Gastro-esophageal reflux disease without esophagitis; I25.10 Atherosclerotic heart disease of native coronary artery without angina pectoris; I10 Essential (primary) hypertension; M81.0 Age-related osteoporosis without current pathological fracture; E11.9 Type 2 diabetes mellitus without complications; E78.00 Pure hypercholesterolemia, unspecified; F17.200 Nicotine dependence, unspecified, uncomplicated; Z90.710 Acquired absence of both cervix and uterus; Z79.899 Other long term (current) drug therapy; W01.0XXA Fall on same level from slipping, tripping and stumbling without subsequent striking against object, initial encounter; Y92.89 Other specified places as the place of occurrence of the external cause; Y93.89 Activity, other specified; Y99.8 Other external cause status

== ENCOUNTER → 2019-05-11 | Outpatient (CLI) | payer MEDICARE | END | disposition home or self-care (01) | LOC: RAD 15:59 | DX: M54.5 Low back pain (principal) ==

== ENCOUNTER 2019-11-15 21:03 | Inpatient (IN) | payer MEDICARE ==
[~2019-11-15] VITALS: Ht 160 cm; Wt 56.8 kg
[2019-11-15 21:05] VITALS: BP 155/71
[2019-11-15 23:30] VITALS: BP 154/79
[2019-11-15 23:43] LABS: MEAN CELL VOLUME 94.9 fl (81.0-99.0); MEAN CORPUSCULAR HGB 29.6 pg (27.0-31.0); MEAN CORPUSCULAR HGB CONC 31.2 g/dl (33.0-37.0); MEAN PLATELET VOLUME 9.3 fl (9.6-12.3); PLATELET COUNT AUTOMATED 221 10*3/uL (130-400); RED BLOOD COUNT 2.16 10*6/uL (4.10-5.10); RED CELL DISTRI WIDTH 16.6 % (0-14.5)
[2019-11-15 23:48] LABS: HEMATOCRIT 20.5 % (37.0-47.0)
[2019-11-16] VITALS (15 sets, daily range): BP systolic 140–202; BP diastolic 42–77
[2019-11-16 00:02] LABS: ALBUMIN 3.2 gm/dl (3.1-4.5); ALKALINE PHOSPHATASE 90 U/L (45-117); BUN 22 mg/dl (7-24); CHLORIDE 91 mmol/L (98-107); CREATININE 0.57 mg/dL (0.55-1.02); POTASSIUM 3.6 mmol/L (3.5-5.1); SGOT/AST 15 IU/L (3-35); SGPT/ALT 25 U/L (12-78); SODIUM 120 mmol/L (136-145)
[2019-11-16 00:17] LABS: MICROCYTOSIS SLIGHT; PLATELET SUFFICIENCY NORMAL (NORMAL); TOTAL CELLS COUNTED 100 #CELLS
--- NOTE | 2019-11-16 03:21 | NUR ---
A 79, admitted to 5E, under the services of DAREN Nunez DO with a diagnosis of FRACTURE. Chief complaint is FALL. Patient arrived via bed from ER. Monitor applied. Initial assessment completed. Vital signs taken and recorded. DAREN NUNEZ DO notified of admission to the unit. Orders received. See assessment for past medical history, medications and allergies. Patient oriented to unit. Clothing/patient valuable form completed. JOSE LAY
--- NOTE | 2019-11-16 03:21 | NUR ---
INFORMED BY ER STAFF THAT IS AWARE OF CONSULT AND STATED HE WILL SEE IN THE MORNING
--- NOTE | 2019-11-16 04:08 | NUR ---
PATIENT MEDICATED WITH MORPHINE FOR C/O RUE PAIN 11/24. WILL MONITOR
--- NOTE | 2019-11-16 04:25 | NUR ---
MADE AWARE THAT UNABLE TO VERIFY HOME MED, PATIENT DOESN'T KNOW THEM AND DOES NOT HAVE HER LIST. ALSO. MADE THAT PATIENT DID NOT RECIEVE ANY BLOOD PRODUCT FROM ED WAS INFORMED BY ER STAFF THAT THEY WERE LEAVING THAT UP TO HOSPITALIST TO DECIDE. STATESD TO PLACE TRANSFUSE ORDER FOR 1 UNTI PRBCS.
--- NOTE | 2019-11-16 04:28 | NUR ---
MADE AWARE OF MANUAL BP OF 202/68 AND THAT PATIENT HAS [address] STATED SHE WILL PLACE ORDERS.
--- NOTE | 2019-11-16 05:07 | NUR ---
PATIENT MEDICATED WITH IV APRESOLINE FOR ELEVATED BP OF 202/68. WILL MONITOR
--- NOTE | 2019-11-16 05:40 | NUR ---
BLOOD PRODUCT INITIATED AT THIS TI,ME AT 80CC/HR, PATIENT HAS HISTORY OF BLOOD TRANSFUSING. BLOOD PRODUCT IS BEING ADMINISTER BY BLOOD WARMER. WILL CONTINUE TO MONITOR
--- NOTE | 2019-11-16 06:10 | NUR ---
PATIENT IS TOLERATING BLOOD PRODUCT ADMINISTRATION, FLOW INCREASED TO 125CC/HR. WILL MONITOR
--- NOTE | 2019-11-16 06:37 | NUR ---
AWARE OF CONSULTS. STATES HE WILL SEE HER, POSSIBLE SCOPE 11/16
--- NOTE | 2019-11-16 06:55 | NUR ---
APRESOLINE EFFECTIVE, BP IS NOW 163/43
[2019-11-16] MEDS ORDERED: LOSARTAN-HCTZ1 EACH PO (07:19)
[2019-11-16] MEDS ORDERED: CETIRIZINE10 MG PO (07:20)
[2019-11-16] MEDS ORDERED: MAG6464 MG PO (07:21)
[2019-11-16] MEDS ORDERED: VITAMIN D350 MC2 PO (07:22)
--- NOTE | 2019-11-16 07:40 | NUR ---
PHYSICAL THERAPY Screen and PT eval received will follow thank you Magnolia Gutierrez PT
--- NOTE | 2019-11-16 08:02 | NUR ---
Occupational therapy order and nursing screen received. Will follow up with patient for completion of an OT evaluation. Thank you. Petrona Cifuentes, OTR/L
--- NOTE | 2019-11-16 08:04 | NUR ---
MEDICATED WITH PRN IV MORPHINE FOR C/O RIGHT ARM PAIN.
--- NOTE | 2019-11-16 08:53 | NUR ---
PRN IV MORPHINE EFFECTIVE, PER PATIENT.
--- NOTE | 2019-11-16 08:53 | NUR ---
DR. LUNDBERG IN TO SEE PATIENT RE: PLAN OF CARE, IS ORDERING EGD FOR TOMORROW, NPO MIDNIGHT FOR THE PROCEDURE. DR. PRUETT TO SEE PATIENT TODAY AND DETERMINE IF SHE IS NEED FOR SURGERY TO RIGHT ARM, SO SHE REMAINS NPO UNTILL SEEN BY DR. PRUETT.
[2019-11-16 10:40] LABS: EOS % 0.1 % (1.0-4.0); HEMATOCRIT 22.5 % (37.0-47.0); LYMPH # 0.9 10*3/uL (1.3-4.4); LYMPH % 11.4 % (27.0-41.0); MEAN CORPUSCULAR HGB 30.4 pg (27.0-31.0); MEAN CORPUSCULAR HGB CONC 33.3 g/dl (33.0-37.0); MEAN PLATELET VOLUME 9.7 fl (9.6-12.3); MONO # 0.6 10*3/uL (0.1-1.0); MONO % 7.8 % (3.0-9.0); NEUT # 6.1 10*3/uL (2.3-7.9); NEUT % 79.9 % (47.0-73.0); NUCLEATED RED BLOOD CELL 0.3 % (0.0-0.0); PLATELET COUNT AUTOMATED 231 10*3/uL (130-400); RED BLOOD COUNT 2.47 10*6/uL (4.10-5.10); WHITE BLOOD COUNT 7.7 10*3/uL (4.8-10.8)
--- NOTE | 2019-11-16 10:48 | NUR ---
DR. PRUETT IN TO SEE PATIENT RE: PLAN OF CARE, NO PLANS FOR SURGERY OF YET, WILL NEET CT OF RT ARM BEFORE ALL OPTIONS FOR THE PATIENT CAN BE DETERMINED, PER DR. PRUETT. SOFT DIET ORDERED BY DR. HOWE FOR NOW. PATIENT ORDERING BREAKFAST. DR. PRUETT DID NOT REMOVE THE DRESSING TO RIGHT WRIST AND FOREARM BUT DID ASSESS THE UPPER ARM FOR SKIN IMPAIRMENTS AND PUT THE SPLINT BACK IN PLACE. NO SLING IS NECESSARY DUE TO THE ARM IS IN AN EXTENDED POSITION WITH THE SPLINT, PER MD.
[2019-11-16 10:52] LABS: MEAN CELL VOLUME 91.1 fl (81.0-99.0)
--- NOTE | 2019-11-16 12:39 | NUR ---
MEDICATED WITH PRN IV MORPHINE FOR RIGHT ARM PAIN. HAND IS ELEVATED ON PILLOW ABOVE LEVEL OF ELBOW, ICE PACK IN PLACE, PATIENT WIGGLING FINGERS PER ORDER.
--- NOTE | 2019-11-16 13:13 | NUR ---
PRN IV MORPHINE EFFECTIVE, PER PATIENT.
--- NOTE | 2019-11-16 14:19 | NUR ---
MEDICATED WITH PRN PO NORCO FOR RIGHT ARM PAIN CONTROL.
--- NOTE | 2019-11-16 15:10 | NUR ---
PRN PO NORCO EFFECTIVE, PER PATIENT.
[2019-11-16 16:08] LABS: EOS % 0.1 % (1.0-4.0); HEMATOCRIT 21.5 % (37.0-47.0); LYMPH # 0.6 10*3/uL (1.3-4.4); LYMPH % 8.6 % (27.0-41.0); MEAN CELL VOLUME 88.5 fl (81.0-99.0); MEAN PLATELET VOLUME 9.5 fl (9.6-12.3); MONO # 0.5 10*3/uL (0.1-1.0); MONO % 6.9 % (3.0-9.0); NEUT # 6.2 10*3/uL (2.3-7.9); NEUT % 83.9 % (47.0-73.0); PLATELET COUNT AUTOMATED 220 10*3/uL (130-400); RED BLOOD COUNT 2.43 10*6/uL (4.10-5.10); WHITE BLOOD COUNT 7.4 10*3/uL (4.8-10.8)
[2019-11-16 16:15] LABS: BUN 17 mg/dl (7-24); CHLORIDE 92 mmol/L (98-107); POTASSIUM 3.6 mmol/L (3.5-5.1); SODIUM 123 mmol/L (136-145)
--- NOTE | 2019-11-16 17:00 | NUR ---
NOTIFIED DR. CAST OF CONSULT.
--- NOTE | 2019-11-16 20:58 | NUR ---
24 HR chart check completed.
--- NOTE | 2019-11-16 21:00 | NUR ---
RESTING IN BED. RESPIRATIONS EASY. LUNGS DIMINISHED. PULSE OX 94% RA. RIGHT ARM ELEVATED ON PILLOW WITH ICE AND DEEP WRAP IN PLACE. TEDS/SCDS IN PLACE. IV FLUIDS AND PROTONIX DRIP INFUSING PER ORDER. CALL LIGHT WITHIN REACH. BED ALARM MAINTAINED
[2019-11-16 21:12] LABS: BUN 15 mg/dl (7-24); CHLORIDE 92 mmol/L (98-107); CREATININE 0.57 mg/dL (0.55-1.02); POTASSIUM 3.2 mmol/L (3.5-5.1); SODIUM 122 mmol/L (136-145)
--- NOTE | 2019-11-16 21:12 | NUR ---
MEDICATED WITH NORCO AND RESTORIL PER PRN ORDER FOR COMPLAINTS OF RIGHT ARM AND BILATERAL LEG PAIN RATING AN 8 AND TO ASSIST WITH SLEEP. CALL LIGHT WITHIN REACH. WILL MONITOR
--- NOTE | 2019-11-16 22:00 | NUR ---
MEDS APPEAR EFFECTIVE, SLEEPING. RESPIRATIONS EASY. IV FLUIDS MAINTAINED. CALL LIGHT WITHIN REACH. BED ALARM IN PLACE FOR SAFETY
--- NOTE | 2019-11-16 22:00 | NUR ---
DR CAST CONTACTED AND UPDATED REGARDING SODIUM. NO NEW ORDERS RECEIVED AT THIS TIME
[2019-11-17] VITALS (9 sets, daily range): BP systolic 137–171; BP diastolic 44–75
--- NOTE | 2019-11-17 | NUR ---
SLEEPING. NO DISTRESS NOTED. RESPIRATIONS EASY. VSS. IV FLUIDS MAINTAINED.
--- NOTE | 2019-11-17 05:32 | NUR ---
PATIENT BATHED FOR SURGERY. MEDICATED WITH MORPHINE IV PER PRN ORDER FOR COMPLAINTS OF RIGHT ARM AND BILATERAL LEG PAIN RATING AN 8. CALL LIGHT WITHIN REACH. WILL MONITOR
--- NOTE | 2019-11-17 06:10 | NUR ---
EARLIER MEDS APPEAR EFECTIVE. RESTING WITH EYES CLOSED. RESPIRATIONS EASY. CALL LIGHT WITHIN REACH
--- NOTE | 2019-11-17 06:20 | NUR ---
PATIENT TRANSPORTED OFF FLOOR VIA BED FOR SURGERY
[2019-11-17 06:38] LABS: BUN 12 mg/dl (7-24); CHLORIDE 98 mmol/L (98-107); CREATININE 0.45 mg/dL (0.55-1.02); POTASSIUM 3.2 mmol/L (3.5-5.1); SODIUM 128 mmol/L (136-145)
[2019-11-17 06:50] LABS: BASO % 0.2 % (0.0-1.0); EOS % 0.9 % (1.0-4.0); HEMATOCRIT 23.9 % (37.0-47.0); LYMPH # 0.6 10*3/uL (1.3-4.4); LYMPH % 12.7 % (27.0-41.0); MEAN CORPUSCULAR HGB 30.5 pg (27.0-31.0); MEAN CORPUSCULAR HGB CONC 31.8 g/dl (33.0-37.0); MEAN PLATELET VOLUME 9.7 fl (9.6-12.3); MONO # 0.4 10*3/uL (0.1-1.0); MONO % 7.5 % (3.0-9.0); NEUT # 3.7 10*3/uL (2.3-7.9); NEUT % 78.3 % (47.0-73.0); PLATELET COUNT AUTOMATED 209 10*3/uL (130-400); RED BLOOD COUNT 2.49 10*6/uL (4.10-5.10); RED CELL DISTRI WIDTH 17.2 % (0-14.5); WHITE BLOOD COUNT 4.7 10*3/uL (4.8-10.8)
[2019-11-17 07:38] LABS: VITAMIN D, 25-HYDROXY 54.6 ng/mL (30-100)
--- NOTE | 2019-11-17 09:00 | NUR ---
Online Communications Manager in to talk to patient. Patient states lives at home with her . There are 0 steps in the home. There is a wheelchair ramp. Physician: Marcello Arroyo [facility]acy: [facility] Home health services: would like [facility] on discharge Patient's level of ADLs: minimal assistance Patient has working utilities: yes DME: walker Follow-up physician's appointment after d/c: will be made by the hospitalist nurse director upon discharge Does patient want to access PORTAL?: no Discharge plan discussed with patient. She lives at home with her . She states she is independent in her ADLs and uses a walker for ambulation. Discussed short term SNF and she adamantly refuses. Discussed home health care services and she is agreeable. When provided with a list of agencies she chose [facility] as she has had them in the past. CM will continue to follow for any discharge planning needs. When medically stable she will be discharged to home with [facility] services. She states her will provide transportation on discharge. SALVATORE ARAUJO
--- NOTE | 2019-11-17 09:13 | NUR ---
PHYSICAL THERAPY Physical Therapy evaluation completed on 5E with full evaluation to follow. Moderate complexity skilled PT evaluation per chart review and evaluation, [id number]. Recommend physical therapy per plan of care and SNF upon discharge. Thank you for this referral. Shirin Zaman,PT,DPT
--- NOTE | 2019-11-17 09:13 | NUR ---
Occupational Therapy evaluation completed on five with full evaluation to follow. Recommend occupational therapy per plan of care and SNF upon discharge. Thank you for this referral. Petrona Cifuentes OTR/L
--- NOTE | 2019-11-17 14:22 | NUR ---
OT NOTE Pt was seen this P.M. 1:1 for 25 minute OT session. Upon arrival pt was supine in bed. Pt identified by name and and had complaints of 9/10 RUE and RLE pain. Pt was able to verbalize her NWB status to RUE with 100% accuracy. Pt transferred supine to sit EOB with maxA X 2 while supporting her RUE to prevent any weight bearing. Pt then completed multiple sit to stand transfers from bed level with modA INDUSTRIAL PIPEFITTER JOURNEYMAN while RUE was being supported. Challenged pt's static standing tolerance needed for increased I in self care tasks and functional transfers, pt was able to tolerate aprox 4 minutes at a time before sitting due to fatigue. Functional mobility then completed to the recliner with CGA INDUSTRIAL PIPEFITTER JOURNEYMAN while RUE is being supported. After being seated in the recliner pt requested to use the bathroom. Sit to stand completed from low recliner with maxA while her RUE was being support. Functional mobility then completed to the bathroom with CGA INDUSTRIAL PIPEFITTER JOURNEYMAN, pt had one LOB that required Mikey to correct. Pt transferred on to the standard commode with Mikey and off with modA due to low surface and fear of falling. Clothing management completed with maxA and toilet hygiene completed with maxA. Functional mobility completed back to the recliner with CGA INDUSTRIAL PIPEFITTER JOURNEYMAN. While seated pt wiggled all digits on her RUE and completed gentle hand pumps. Pt was left sitting upright in the recliner with call light in hand, tray table in place, and body alarm activated for safety. Continue with rec D/C plan to SNF. CHANCE Smith
--- NOTE | 2019-11-17 14:31 | NUR ---
PHYSICAL THERAPY TREATMENT TIME: 1:55 PM 21 MINUTES PRESENTATION: Patient was supine in bed Head of bed elevated Bed alarm was on No spO2 2 IV lines infusing COMPLAINTS: 9/10 pain level in th R UE and R LE. TRANSFERS: Supine to sitting on EOB: MAX A X 2 Sitting on EOB: CGA-SBA Patient required her R UE to be held up by therapist while performing transfers. STS from EOB: MOD X 2 STS from low chair or commode: MAX A X 2 TREATMENT: GAIT with SENIOR SALES DIRECTOR x 1 - other therapist holding patient's R UE to prevent pain. Gait distance: 20' x 2 RESPONSE TO TREATMENT: Patient with increased pain in the R UE and R LE overall today. Patient has continued need for R UE support CONCLUSION: Patient left in bedside chair Chair alarm attached and tested Call light within reach LEs in low position Tray table near [facility] MAJANO STRUCTURAL METAL FABRICATOR APPRENTICE
--- NOTE | 2019-11-17 16:20 | NUR ---
OT NOTE Patient is progressing towards her occupational therapy goals with improvement in functional transfers, activity tolerance, and independence with ADLs. New OT goals are as followed to reflect patient's progress- Transfers- Supervision chair, bed, and toilet transfers while maintaing RUE NWB, Mod A bed transfers while maintaing RUE NWB Activity tolerance- Increase activity tolerance to 7 minutes of activity in stance for ADL completion Toileting- Mod A clothing management and toileting hygiene Balance- Fair+ dynamic standing balance Petrona Cifuentes, OTR/L
--- NOTE | 2019-11-17 19:43 | NUR ---
24 HR chart check completed.
--- NOTE | 2019-11-17 20:30 | NUR ---
RESTING IN BED TALKING ON PHONE. RESPIRATIONS EASY. LUNGS DIMINISHED. PULSE OX 99% RA. NON-PROD COUGH. RIGHT ARM REMAINS WRAPPED, ELEVATED ON PILLOW WITH ICE PACK IN PLACE. TEDS/SCDS IN PLACE. IV FLUIDS AND PROTONIX INFUSING PER ORDER. CALL LIGHT WITHIN REACH. NO VOICED COMPLAINTS. BED ALARM MAINTAINED
--- NOTE | 2019-11-17 22:00 | NUR ---
MEDS EFFECTIVE. RESTING WITH EYES CLOSED. RESPIRATIONS EASY. CALL LIGHT WITHIN REACH. BED ALARM MAINTAINED.
--- NOTE | 2019-11-18 | NUR ---
SLEEPING. RESPIRATIONS EASY. VSS. IV FLUIDS MAINTAINED.
[2019-11-18 04:00] VITALS: BP 180/53
--- NOTE | 2019-11-18 05:57 | NUR ---
SLEPT THROUGHOUT NIGHT WITH NO DISTRESS NOTED. RESPIRATIONS EASY. MEDICATED WITH NORCO PER PRN ORDER FOR COMPLAINTS OF RIGHT ARM PAIN RATING AN 8. CALL LIGHT WITHIN REACH. WILL MONITOR
--- NOTE | 2019-11-18 06:30 | NUR ---
EARLIER MEDS APPEAR EFFECTIVE. SLEEPING. CALL LIGHT WITHIN REACH.
[2019-11-18 07:05] LABS: BASO % 0.2 % (0.0-1.0); EOS # 0.1 10*3/uL (0.0-0.4); EOS % 1.6 % (1.0-4.0); HEMATOCRIT 23.3 % (37.0-47.0); LYMPH # 0.5 10*3/uL (1.3-4.4); LYMPH % 12.2 % (27.0-41.0); MEAN CELL VOLUME 98.3 fl (81.0-99.0); MEAN CORPUSCULAR HGB CONC 30.5 g/dl (33.0-37.0); MEAN PLATELET VOLUME 9.3 fl (9.6-12.3); MONO # 0.4 10*3/uL (0.1-1.0); MONO % 8.9 % (3.0-9.0); NEUT # 3.3 10*3/uL (2.3-7.9); NEUT % 76.4 % (47.0-73.0); PLATELET COUNT AUTOMATED 185 10*3/uL (130-400); RED BLOOD COUNT 2.37 10*6/uL (4.10-5.10); RED CELL DISTRI WIDTH 17.9 % (0-14.5); WHITE BLOOD COUNT 4.3 10*3/uL (4.8-10.8)
[2019-11-18 07:27] LABS: ALBUMIN 2.5 gm/dl (3.1-4.5); ALKALINE PHOSPHATASE 74 U/L (45-117); BUN 10 mg/dl (7-24); CHLORIDE 101 mmol/L (98-107); CREATININE 0.38 mg/dL (0.55-1.02); POTASSIUM 3.8 mmol/L (3.5-5.1); SGOT/AST 19 IU/L (3-35); SGPT/ALT 16 U/L (12-78); SODIUM 129 mmol/L (136-145); TOTAL PROTEIN 5.2 gm/dL (6.4-8.2)
[2019-11-18 08:00] VITALS: BP 181/45
--- NOTE | 2019-11-18 08:00 | NUR ---
PATIENT SLEEPING AROUSES EASILY. DECLINES NEED FOR ANYTHING AT THIS TIME.
--- NOTE | 2019-11-18 09:00 | NUR ---
CM in to see patient. She is sitting up in her bedside chair. Nurse and Dr. Peace in room. Discussed short term rehab and she adamantly refuses. Discussed home health care services and she remains agreeable to [facility]. Dr. Peace mentioned patient getting a platform for her right arm for her walker. Dr. Peace did speak to OT. When medically stable she will be discharged to home with [facility] services.
--- NOTE | 2019-11-18 09:04 | NUR ---
DR. NIETO AND DR. ROMERO HAVE ROUNDED.
--- NOTE | 2019-11-18 09:50 | NUR ---
OT NOTE Pt sitting in recliner agreeable to 20 minute OT session. Prior to session pt recited right arm NWB precautions. Identified by name and date of with complaints of 9/10 right arm pain. Sit-stand Max x1 with right arm support from OT. Functional mobility from recliner to bathroom CGA LEAN MANUFACTURING LEADER, however requiring Mikey due to unsteadiness at times. Transferring on commode Mikey for right arm support. Transferring off commode maxA due to low rise commode. hygiene maxA. MaxA to vincenzo depends due to NWB of dominent hand. Functional mobility from bathroom to hallway and back to recliner cga LEAN MANUFACTURING LEADER, requiring Mikey at times to correct retrograde posture. Pt was able to tolerate approx 5 minutes before fatigue. Pt was left in recliner with call light at reach. Continue d/c recommended SNF. JAMISON Can/ZIGGY Novak/Imelda
--- NOTE | 2019-11-18 10:30 | NUR ---
PATIENT GLASSES SCRAPPED SCAB BETWEEN EYES AND IS BLEEDING. BAND AID PLACED. ARM SPLINT UNWRAPPED AND REDRESSED.
--- NOTE | 2019-11-18 11:42 | NUR ---
MEDICATED WITH PRN NORCO PER ORDER AND REQUEST.
--- NOTE | 2019-11-18 11:58 | NUR ---
AND DR. MURPHY HAVE ROUNDED.
[2019-11-18 12:00] VITALS: BP 147/40
--- NOTE | 2019-11-18 12:21 | NUR ---
DAVIAN IS HELPING.
--- NOTE | 2019-11-18 12:51 | NUR ---
PHYSICAL THERAPY TREATMENT TIME: IN 09:31 AM - OUT 09:55 AM 24 MINUTES TOTAL PRESENTATION: Patient was sitting in bedside chair Patient with 1 IV infusing No spO2 COMPLAINTS: Patient with report of pain in the R UE No pain level given TRANSFERS: STS from bedside chair: MAX A X 2 VERBAL Cues for hand placement STS from commode: MOD A X 2 - MAX A X 2 Stand to sitting in bedside chair: MIN A X 2 TREATMENT: Gait with Wh Walker and CGA for 15' x 1 and then again for 34' x 1 2 minor LOB with MIN A X 1 required to correct by therapist RESPONSE TO TREATMENT: Patient had increased pain in the R UE Patient required other therapist to hold R UE up in order to prevent pain and discomfort in R UE. CONCLUSION: Patient left in seated position with call light within reach. Tray table in front of patient LEs in low position YOLANDA MAJANO JIG AND FIXTURE BUILDER APPRENTICE
--- NOTE | 2019-11-18 14:25 | NUR ---
PHYSICAL THERAPY Patient seen this pm 1:1 for therapy visit and was sitting up in bedside chair upon therapist arrival. Patient identified by name / and was joined by OT pharmacy affairs assistant for observation only this session. Patient also presented with IV treatment and reports 7/10 R elbow pain from recent fall. Patient is NWB on R UE and presents with carly wrap immobilization / support, requiring therapist MOD A for support during all transfers / gait activity. Patient transfers sit to stand from low chair surface, MIN A x 2, demonstrating very slow rise and ambulates PATENT ATTORNEY/ MIN A, 20'x 1 to bathroom, then additional 10' x 1 to EOB sit, demonstrating slow erlinda, decreased stride and very cautious gait pattern for fear of falling. Patient needed several v/x's to increase stride along with energy conservation technique to improve safety awareness. Patient returned to EOB sit with quick onset of fatigue and transfers sit to supine with MOD A x 2 secondary to pain c/o. Patient remained supine in bed with call light, tray table, telephone and bed alarm for safety, reporting no change in R elbow pain following treatment. Will continue per POC as tolerated, total treatment time 16 minutes. Sg Camara, QUALITY ASSURANCE ASSESSOR
--- NOTE | 2019-11-18 14:31 | NUR ---
OT NOTE Pt was sitting in recliner agreeable to 10 minute OT session. Identified by name and date of with complaints of 7/10 right arm pain. Sit-stand from recliner Mikye with right arm support from OT. Functional mobility from recliner to bathroom CGA MECHANICAL SYSTEMS CONTROL ENGINEER. Transferring on commode CGA MECHANICAL SYSTEMS CONTROL ENGINEER. Transferring off commode modA x1 due to low rise commode. hygiene maxA due to NWB of right arm. MaxA to pull depend over hips. Functional mobility from bathroom to EOB CGA MECHANICAL SYSTEMS CONTROL ENGINEER. modA X2 to position in bed. This afternoon therapist requested for pt to self support her RUE however pt was unable resulting in RUE "dangling". Alarm active with call light in reach. Continue d/c recommended SNF. JAMISON Can/ZIGGY Novak/Imelda
[2019-11-18 16:00] VITALS: BP 169/46
[2019-11-18 20:00] VITALS: BP 177/49
--- NOTE | 2019-11-18 20:25 | NUR ---
PATIENT C/O LEFT ARM PAIN, RATES 6/10. MEDICATED WITH NORCO AT THIS TIME. PATIENT ALSO REQUESTING SOMETHING FOR SLEEP. MEDICATED WITH RESTORIL. WILL CHECK EFFECTIVENESS.
--- NOTE | 2019-11-18 21:25 | NUR ---
PATIENT SLEEPING. MEDICATIONS EFFECTIVE.
[2019-11-19] VITALS: BP 168/41
--- NOTE | 2019-11-19 01:22 | NUR ---
24 HR chart check completed.
[2019-11-19 06:41] LABS: EOS % 0.8 % (1.0-4.0); HEMATOCRIT 25.4 % (37.0-47.0); LYMPH # 0.5 10*3/uL (1.3-4.4); LYMPH % 9.1 % (27.0-41.0); MEAN CELL VOLUME 97.7 fl (81.0-99.0); MEAN CORPUSCULAR HGB CONC 30.7 g/dl (33.0-37.0); MEAN PLATELET VOLUME 9.4 fl (9.6-12.3); MONO # 0.3 10*3/uL (0.1-1.0); MONO % 6.7 % (3.0-9.0); NEUT # 4.1 10*3/uL (2.3-7.9); NEUT % 82.8 % (47.0-73.0); PLATELET COUNT AUTOMATED 188 10*3/uL (130-400); RED CELL DISTRI WIDTH 17.4 % (0-14.5)
[2019-11-19 07:05] LABS: ALBUMIN 2.6 gm/dl (3.1-4.5); BUN 10 mg/dl (7-24); CHLORIDE 98 mmol/L (98-107); POTASSIUM 3.5 mmol/L (3.5-5.1); SODIUM 130 mmol/L (136-145)
--- NOTE | 2019-11-19 07:30 | NUR ---
PT RESTING BED. RESPS EASY AND NON LABORED. NO S/S OF DISTRESS NOTED. VSS. WHITE BOARD UPDATED. POC DISCUSSED W PT. A/O X3. MULTIPLE BRUISED AREAS NOTED. SLING/WRAP TO RIGHT ARM. PT AGITATED STATING SHE WANTS TO GO HOME BECAUSE THEY ARE NOT GOING TO FIX HER ARM. WILL CONTINUE TO MONITOR. CALL LIGHT WITHIN REACH. BED ALRM ON.
--- NOTE | 2019-11-19 07:39 | NUR ---
OCCUPATIONAL THERAPY CO-SIGN I approve of the Occupational Therapy notes written above. ARNULFO ALLEN, OTR/L
[2019-11-19 08:00] VITALS: BP 156/82
--- NOTE | 2019-11-19 08:00 | NUR ---
PHYSICAL THERAPY Patient seen this am 1;1 for therapy visit and was resting supine in bed upon therapist arrival. Patient identified by name / and was joined by OT medical assistant per diem for observation this session as patient voices 8/10 R elbow pain. Patient presented with carly wrap immobization support on R UE and positioned with elbow resting on pillow. Patient transfers supine to sit EOB, MOD A x 2, needing a few seconds to collect herself, then sit to stand MOD A x 1, with suppoort of R UE secondary to pain c/o. Patient ambulated 10'x 1 to bathroom, CINDER CRUSHER OPERATOR/MIN, with R UE support to control pain, as patient becomes very anxious for fear of increased pain. Patient needed v/c to increase stride with head up and demonstrated slight improvement in confidence. Following toileting, patient ambulated additional 20'x 1, CINDER CRUSHER OPERATOR/MIN, with R UE support, and was not receptive to attempt gait with cane / anish walker at this time. Patient returned to bedside chair with increased fatigue and remained with call light, tray table, telephone with R UE resting on pillow support for comfort. Patient reported no increase in pain c/o and will continue per POC as tolerated. Total treatment time 15 minutes. Sg Camara, LIBRARY AIDE
--- NOTE | 2019-11-19 08:15 | NUR ---
OT NOTE Pt was laying supine in bed with head elevated agreeable to 15 minute OT session. Identified by name and date of with complaints of 8/10 right arm pain. Prior to OT session pt was able to wiggle right digits at SBA. Supine to EOB modA x2 with right arm support. Sit-stand modA x1 with right arm support. Functional mobility from EOB to bathroom Kwame ART THERAPY SPECIALIST with right arm support. Transferring on commode Kwame for right arm support. Transferring off commode maxA due to low rise commode. Max A for hygiene due to NWB right arm. MaxA to pull depends up over hips. Functional mobility from bathroom to recliner Kwame ART THERAPY SPECIALIST with right arm support. Pt left in recliner with call light in reach and right UE elevated on pillow.Continue d/c recommended SNF. JAMISON Can/ZIGGY Novak/Imelda
--- NOTE | 2019-11-19 09:33 | NUR ---
PHYSICAL THERAPY Per OT conversation with 11/17MD wanting to look at possible platform walker to be able to use LUE (uninvolved UE) with ambulation as pt uses walker at home and maintain NWB of RUE. However, available PFWW is not appropriate for ambulation in this manner due to level of assistance required for manganement of invovled RUE and pt's pain/anxiety. Per therapy staff this AM pt with increased pain RUE and anxiety requiring assist x 2 for ambulation VICE PRESIDENT OF MANUFACTURING with supporting RUE/NWB, pt not appropriate due to pain/anxiety to trial cane/Hemiwalker at this time. Will continue to rx/assess pt for appropriate AD and assist, continue to recommend SNF at discharge cont per POC Magnolia Gutierrez PT
--- NOTE | 2019-11-19 10:12 | NUR ---
[facility] NOTIFIED OF CONSULT
--- NOTE | 2019-11-19 10:30 | NUR ---
UPDATED ON POC, QUESTIONS ANSWERED
--- NOTE | 2019-11-19 10:36 | NUR ---
CM in to see patient. Discussed short term rehab and she declines. She states "I am absolutely not going to a rehab. I don't care what anyone thinks." Discussed how she was going to manage at home and she states her will help her. Asked does her know what kind of help she is going to need at home as she is needing 2 assist while here in the hospital. She states her daughter from [employer] is talking about moving them in with her for a short time. Discussed what if that doesn't happen. She states she will manage. She remains agreeable to home health care services. When medically stable she will be discharged to home.
[2019-11-19] MEDS ORDERED: SYNTHROID,LEV125 MCG PO (11:05)
[2019-11-19] MEDS ORDERED: VITAMIN D350 MC2 PO (11:05)
[2019-11-19] MEDS ORDERED: Rocaltrol0.25 MCG PO (11:05)
[2019-11-19] MEDS ORDERED: Carafate1 GM PO (11:05)
[2019-11-19] MEDS ORDERED: PANTOPRAZOLE SO40 MG PO (11:05)
[2019-11-19] MEDS ORDERED: MIRTAZAPINE15 M2 PO (11:05)
[2019-11-19] MEDS ORDERED: HYDROCODONE-AC1 EAC1 PO (11:06)
--- NOTE | 2019-11-19 11:20 | NUR ---
OT NOTE Followed up with Shirin from this morning in regards to the assistance level patient needs for transfers and mobility and concerns of patient returning home with her . On 11/18/2019 Dr. Peace and this OTR spoke in regards to patient using a front platform WW using the LUE (uninvolved UE) for transfers and mobility, see PT note for further details. Patient is not appropriate at this time for an adaptive device for transfers and mobility due to needing full RUE support and FARM MANAGEMENT SUPERVISOR assist with the LUE (uninvolved UE). Will continue with POC as able recommending SNF at discharge. Petrona Cifuentes, OTR/L
--- NOTE | 2019-11-19 11:34 | NUR ---
Faxed home health care referral, clinical, and discharge summary to [facility]
[2019-11-19 12:00] VITALS: BP 148/80
--- NOTE | 2019-11-19 13:31 | NUR ---
ATTEMPTED TO REACH REGARDING DISCHARGE
--- NOTE | 2019-11-19 13:56 | NUR ---
Discharge instructions reviewed with patient/family. Patient receptive and verbalizes understanding. Follow-up care arranged. Written instructions given to patient/family. TONIA COLE The Discharge Plan/Instructions have been completed. Hep Lock discontinued. Site asymptomatic. Pressure applied. Sterile dressing applied. TONIA COLE PT REFUSED DISCHARGE WOUND PHOTOS. PT STATED SHES NOT HAVING ALL THESE DRESSINGS TORE BACK OFF AGAIN TODAY AND THAT HER HAS BEEN WAITING OUTSIDE FOR HER FOR AN HOUR.
--- NOTE | 2019-11-19 14:30 | NUR ---
OCCUPATIONAL THERAPY CO-SIGN I approve of the Occupational Therapy notes written above. ARNULFO ALLEN, OTR/L
--- NOTE | 2019-11-19 14:31 | NUR ---
PHYSICAL THERAPY CO-SIGN I approve of the Physical Therapy notes written above. Magnolia Gutierrez PT
--- NOTE | 2019-11-23 07:43 | NUR ---
OCCUPATIONAL THERAPY CO-SIGN I approve of the Occupational Therapy notes written above. ARNULFO ALLEN, OTR/L
--- NOTE | 2019-11-23 09:54 | NUR ---
Received call from Lino at [facility] regarding patient staying with her daughter in [place] and the daughter requesting a [place] home health agency. Reached out to patient's regarding above. He is unsure but CM could reach out to their daughter where patient is staying. Received daughter's phone number, Hayley [phone]. Spoke to daughter regarding [facility] and she would like home health care company in [place]. When provided with a list of agencies she chose [facility]. Referral faxed to [facility]. Daughter's address is [address] [place] [address] Tanner, Fede Tariq.
--- NOTE | 2019-11-23 12:51 | NUR ---
ERISA ATTORNEY RECEIVED CALL FROM [facility]. THEY ARE ABLE TO SEE THE PATIENT FRIDAY. PLUG PASTER SALVATORE IS AWARE.
--- NOTE | 2019-11-24 10:04 | NUR ---
ASSISTANT PROFESSOR OF ENGLISH RECEIVED CALL FROM PATIENTS DAUGHTER REQUESTING REFERRAL BE SENT TO [facility]. ASSISTANT PROFESSOR OF ENGLISH WILL FAX REFERRAL.
== END 2019-11-19 13:56 | disposition home or self-care (01) | DRG 562 ==
LOC: ED 21:03 → EDHOLD 11-16 02:15 → 5E 11-16 02:15
PROVIDERS: Emergency Medicine; Internal Medicine; Internal Medicine Nephrology; Student in an Organized Health Care Education/Training Program; ADMIT Internal Medicine; ATTEND Internal Medicine
PROC: 2W3CX1Z Immobilization of Right Lower Arm using Splint (ICD-10-PCS; 2019-11-15)
PROC: 30233N1 Transfusion of Nonautologous Red Blood Cells into Peripheral Vein, Percutaneous Approach (ICD-10-PCS; 2019-11-16)
PROC: 0DB78ZX Excision of Stomach, Pylorus, Via Natural or Artificial Opening Endoscopic, Diagnostic (ICD-10-PCS; principal; 2019-11-17)
DX: S42.411A Displaced simple supracondylar fracture without intercondylar fracture of right humerus, initial encounter for closed fracture (principal); K29.91 Gastroduodenitis, unspecified, with bleeding; K25.4 Chronic or unspecified gastric ulcer with hemorrhage; E87.1 Hypo-osmolality and hyponatremia; E44.0 Moderate protein-calorie malnutrition; D62 Acute posthemorrhagic anemia; S09.90XA Unspecified injury of head, initial encounter; F17.210 Nicotine dependence, cigarettes, uncomplicated; I10 Essential (primary) hypertension; E11.65 Type 2 diabetes mellitus with hyperglycemia; E11.42 Type 2 diabetes mellitus with diabetic polyneuropathy; K21.9 Gastro-esophageal reflux disease without esophagitis; E78.5 Hyperlipidemia, unspecified; M81.0 Age-related osteoporosis without current pathological fracture; G25.81 Restless legs syndrome; I25.10 Atherosclerotic heart disease of native coronary artery without angina pectoris; I87.2 Venous insufficiency (chronic) (peripheral); I16.0 Hypertensive urgency; E89.0 Postprocedural hypothyroidism; E87.6 Hypokalemia; E83.51 Hypocalcemia; F43.21 Adjustment disorder with depressed mood; D72.810 Lymphocytopenia; W18.30XA Fall on same level, unspecified, initial encounter; Y93.89 Activity, other specified; Y92.89 Other specified places as the place of occurrence of the external cause; Y99.8 Other external cause status; Z86.73 Personal history of transient ischemic attack (TIA), and cerebral infarction without residual deficits; Z88.8 Allergy status to other drugs, medicaments and biological substances; Z98.42 Cataract extraction status, left eye; Z98.41 Cataract extraction status, right eye; Z90.49 Acquired absence of other specified parts of digestive tract; Z90.710 Acquired absence of both cervix and uterus; Z82.49 Family history of ischemic heart disease and other diseases of the circulatory system; Z80.52 Family history of malignant neoplasm of bladder; Z79.899 Other long term (current) drug therapy; Z20.828 Contact with and (suspected) exposure to other viral communicable diseases; Z68.22 Body mass index [BMI] 22.0-22.9, adult

== ENCOUNTER → 2019-12-01 | Outpatient (CLI) | payer MEDICARE ==
[~2019-12-01] MED LIST changes: +CETIRIZINE10 MG PO; +Carafate1 GM PO; +HYDROCODONE-AC1 EAC1 PO; +MIRTAZAPINE15 M2 PO; +Rocaltrol0.25 MCG PO; +SYNTHROID,LEV125 MCG PO; +VITAMIN D350 MC2 PO
== END | disposition home or self-care (01) ==
LOC: ORTHO 00:56
PROVIDERS: ATTEND Psychiatry & Neurology Psychiatry
DX: S42.47 Transcondylar fracture of humerus (principal); X58.XXXD Exposure to other specified factors, subsequent encounter

== ENCOUNTER → 2019-12-07 | Outpatient (CLI) | payer MEDICARE | END | disposition home or self-care (01) | LOC: CT 11:00 | PROVIDERS: ATTEND Physician Assistant | DX: N28.1 Cyst of kidney, acquired (principal); I25.10 Atherosclerotic heart disease of native coronary artery without angina pectoris; I71.4 Abdominal aortic aneurysm, without rupture; I10 Essential (primary) hypertension; R19.00 Intra-abdominal and pelvic swelling, mass and lump, unspecified site; K25.9 Gastric ulcer, unspecified as acute or chronic, without hemorrhage or perforation; D64.9 Anemia, unspecified; Z90.49 Acquired absence of other specified parts of digestive tract ==

== ENCOUNTER 2019-12-13 20:50 | Inpatient (IN) | payer MEDICARE ==
[~2019-12-13] VITALS: Ht 160 cm; Wt 56.4 kg
[2019-12-13 20:58] VITALS: BP 146/48
[2019-12-13 21:36] LABS: HEMATOCRIT 22.5 % (37.0-47.0); MEAN CELL VOLUME 96.2 fl (81.0-99.0); MEAN CORPUSCULAR HGB 26.9 pg (27.0-31.0); MEAN PLATELET VOLUME 10.1 fl (9.6-12.3); PLATELET COUNT AUTOMATED 298 10*3/uL (130-400); RED BLOOD COUNT 2.34 10*6/uL (4.10-5.10); RED CELL DISTRI WIDTH 15.2 % (0-14.5); WHITE BLOOD COUNT 6.5 10*3/uL (4.8-10.8)
[2019-12-13 21:55] LABS: INTERNATIONAL NORM RATIO 0.9 (2.0-3.5)
[2019-12-13 22:10] LABS: TOTAL CELLS COUNTED 100 #CELLS
--- NOTE | 2019-12-13 22:10 | NUR ---
CHANGED PT. INTO GOWN, GAVE WARM BLANKET.
[2019-12-13 22:12] LABS: BURR CELLS FEW
[2019-12-13 22:13] LABS: PLATELET SUFFICIENCY NORMAL (NORMAL)
--- NOTE | 2019-12-13 22:23 | NUR ---
PICTURES TAKEN OF R AND L SHINS. SKIN TEAR NOTED TO L WALSH.
--- NOTE | 2019-12-13 22:54 | NUR ---
PT. VOIDED IN BRIEF, NO URINE OBTAINED.
--- NOTE | 2019-12-13 22:54 | NUR ---
CLEANED PT. UP AND PUT NEW BRIEF ON.
[2019-12-13 22:56] LABS: ALBUMIN 2.9 gm/dl (3.1-4.5); ALKALINE PHOSPHATASE 102 U/L (45-117); BUN 13 mg/dl (7-24); CHLORIDE 97 mmol/L (98-107); CREATININE 0.51 mg/dL (0.55-1.02); LIPASE 209 U/L (73-393); POTASSIUM 3.8 mmol/L (3.5-5.1); SGOT/AST 6 IU/L (3-35); SGPT/ALT 16 U/L (12-78); SODIUM 127 mmol/L (136-145); TOTAL PROTEIN 5.7 gm/dL (6.4-8.2)
[2019-12-13 23:02] LABS: TROPONIN I < 0.015 ng/ml (<0.045)
[2019-12-13 23:13] VITALS: BP 177/47
[2019-12-13 23:20] VITALS: BP 196/64
--- NOTE | 2019-12-13 23:20 | NUR ---
Time: 2319 A 79 year old FEMALE admitted to 5E under services of ARTHUR CORTES DO. Pt. arrived via stretcher from ER. Chief complaint: LOW HGB. WHITNEY NATARAJAN
--- NOTE | 2019-12-13 23:50 | NUR ---
NOTIFIED OF MANUAL BP OF 186/62. SHE STATES SHE WILL LOOK AT THE CHART AND PUT SOMETHING ON.
[2019-12-14] VITALS (15 sets, daily range): BP systolic 144–206; BP diastolic 42–64
--- NOTE | 2019-12-14 00:03 | NUR ---
MEDICATED WITH HYDRALIZINE FOR MANUAL BP 186/62. WILL ASSESS EFFECTIVENESS.
--- NOTE | 2019-12-14 01:05 | NUR ---
Informed consent obtained from patient for Blood transfussion by this RN. Patient identified by arm band. Vital signs recorded. Blood unit number verified by 2 R.N.'s. Dank RN and Skylar Bacon RN. I.V. site satisfactory. Unit #1 started at a KVO rate with Normal Saline. WHITNEY NATARAJAN
--- NOTE | 2019-12-14 01:30 | NUR ---
NOTIFIED OF PATIENT'S REQUEST FOR PAIN MEDICATION. PT STATES BLL ARE "HURTING SO BAD" THAT SHE CAN'T KEEP STILL. BP CURRENTLY 196/59 PER AUTO BP CUFF, BUT PT WOULD NOT STOP MOVING. RN WILL ATTEMPT A MANUAL BP ONCE PT ABLE TO KEEP STILL. NEW ORDERS TO FOLLOW PER .
--- NOTE | 2019-12-14 01:53 | NUR ---
MEDICATED WITH PRN MORPHINE FOR LOWER LEG AND FOOT PAIN RATED A 10/10. WILL ASSESS EFFECTIVENESS.
--- NOTE | 2019-12-14 02:42 | NUR ---
ONE TIME IV APRESOLINE GIVEN FOR BP CONTINUING TO BE ELEVATED AT 203/44.
--- NOTE | 2019-12-14 02:53 | NUR ---
PER PATIENT MORPHINE ONLY SOMEWHAT EFFECTIVE.
--- NOTE | 2019-12-14 03:42 | NUR ---
PATIENT BP STARTING TO COME DOWN.
--- NOTE | 2019-12-14 04:05 | NUR ---
BLOOD DONE TRANFUSING AT THIS TIME. VSS. PATIENT STATES SHE IS FEELING FINE. NO S/S OF A REACTION.
--- NOTE | 2019-12-14 04:24 | NUR ---
LAB CALLED TO SEE IF THEY CAN GET CBC NOW TO KNOW WHAT HGB TO SEE IF PATIENT NEEDS OTHER UNIT OF BLOOD.
--- NOTE | 2019-12-14 04:34 | NUR ---
NOTIFIED PTS BP STILL ELEVATED AT 203/44. STATES SHE WILL PUT SOMETHING IN.
[2019-12-14 04:40] LABS: BASO % 0.1 % (0.0-1.0); EOS % 0.2 % (1.0-4.0); HEMATOCRIT 25.4 % (37.0-47.0); LYMPH # 0.5 10*3/uL (1.3-4.4); LYMPH % 5.6 % (27.0-41.0); MEAN CORPUSCULAR HGB 27.1 pg (27.0-31.0); MEAN CORPUSCULAR HGB CONC 29.9 g/dl (33.0-37.0); MEAN PLATELET VOLUME 9.1 fl (9.6-12.3); MONO # 0.4 10*3/uL (0.1-1.0); MONO % 5.1 % (3.0-9.0); NEUT # 7.2 10*3/uL (2.3-7.9); NEUT % 88.1 % (47.0-73.0); PLATELET COUNT AUTOMATED 244 10*3/uL (130-400); RED CELL DISTRI WIDTH 15.4 % (0-14.5); WHITE BLOOD COUNT 8.2 10*3/uL (4.8-10.8)
[2019-12-14 04:41] LABS: MEAN CELL VOLUME 90.7 fl (81.0-99.0)
--- NOTE | 2019-12-14 04:50 | NUR ---
NOTIFIED OF H&H AFTER UNIT OF BLOOD HGB 7.6, HCT 25.4. PER NOT TO GIVE 2ND UNIT ON BLOOD.
[2019-12-14 05:11] LABS: ALKALINE PHOSPHATASE 91 U/L (45-117); BUN 11 mg/dl (7-24); CHLORIDE 99 mmol/L (98-107); CREATININE 0.49 mg/dL (0.55-1.02); POTASSIUM 3.8 mmol/L (3.5-5.1); SGOT/AST 9 IU/L (3-35); SGPT/ALT 15 U/L (12-78); SODIUM 130 mmol/L (136-145); TOTAL PROTEIN 5.7 gm/dL (6.4-8.2)
[2019-12-14 05:25] LABS: BILIRUBIN Negative; BLOOD Negative (Negative); CLARITY Clear (Clear); COLOR Yellow (Yellow); GLUCOSE Negative; KETONE Negative; LEUKO ESTERASE Negative (Negative); NITRITE Negative (Negative); PH 7.5 (4.5-8.0)
[2019-12-14] MEDS ORDERED: Mysoline50 MG PO (06:09)
--- NOTE | 2019-12-14 06:14 | NUR ---
PATIENT UNSURE OF ANY OF THE MEDS SHE TAKES. UPDATED [facility] THE BEST I COULD USING PATIENT MED CLAIM HISTORY. WILL PASS ON TO AM NURSE TO CONTACT [facility] FOR A LIST WHEN THEY OPEN THIS MORNING.
--- NOTE | 2019-12-14 07:29 | NUR ---
NOTIFIED OF NEW CONSULT.
--- NOTE | 2019-12-14 07:30 | NUR ---
PT RESTING IN BED. RESPS EASY AND NON LABORED. NO S/S OF DISTRESS NOTED. VSS. WHITE BOARD UPDATED. POC DISCUSSED W PT. A/O X3. BLE DISCOLORATION/BRUSING NOTED. R LEG EDEMA-PT STATES IT ONLY HURTS AT NIGHT. PT REQUESTING TO BE DISCHARGED STATING SHE GETS BLOOD ALL THE TIME AND WOULD LIKE TO GO HOME. WILL CONTINUE TO MONITOR. CALL LIGHT WITHIN REACH.
--- NOTE | 2019-12-14 07:31 | NUR ---
NOTIFIED OF NEW CONSULT.
--- NOTE | 2019-12-14 07:50 | NUR ---
PT TAKEN OFF FLOOR FOR ULTRASOUND
--- NOTE | 2019-12-14 08:06 | NUR ---
Occupational therapy order and nursing screen received. Will follow up with patient for completion of an OT evaluation. Thank you. Petrona Cifuentes, OTR/L
--- NOTE | 2019-12-14 08:24 | NUR ---
PT BACK FROM ULTRASOUND
--- NOTE | 2019-12-14 08:26 | NUR ---
PHYSICAL THERAPY Nursing screen received and chart reviewed. Physical therapy order received. Will follow to complete PT evaluation. Thank you. Shirin Zaman,PT,DPT
--- NOTE | 2019-12-14 09:30 | NUR ---
PT REFUSING TO HAVE ORTHOSTATIC BLOOD PRESSURE DONE. STATES THERE IS NOTHING WRONG WITH HER BLOOD PRESSURE AND SHE WANTS TO GO HOME.
--- NOTE | 2019-12-14 09:59 | NUR ---
FAMILY UPDATED ON POC. QUESTIONS ANSWERED, PHONE CALL TRANSFERRED INTO PTS ROOM.
--- NOTE | 2019-12-14 11:22 | NUR ---
Equipment Operator Warehouse in to talk to patient. Patient states lives at HOME with DAUGHTER. There are 4 OUTSIDE steps in the home. Physician: LAUREL VICTOR [facility] Home health services: [facility] Patient's level of ADLs: Patient has working utilities: YES DME: [facility] Follow-up physician's appointment after d/c: WILL BE MADE BY HOSPITALIST NURSE DIRECTOR ON DISCHARGE Does patient want to access PORTAL?: NO Discharge plan PT IS STAYING WITH HER DAUGHTER AT THIS TIME. STATES SINCE FALL WITH FRACTURED ELBOW SHE NEEDS ASSISTANCE WITH SOME OF HER DAILY NEEDS. PLAN IS FOR PT TO RETURN HOME WHEN MEDICALLY STABLE WITH DAUGHTER. PT STATES SHE IS GOING HOME TODAY. EXPLAINED THAT WOULD BE UP TO DOCTOR TO DECIDE WHEN SHE WAS STABLE. PT STATES I AM THE BOSS AND I AM LEAVING TODAY. OUSMANE CONTINUE TO FOLLOW. STATES HER DAUGHTER WILL TAKE HER HOME.. TEODORO MCKEON
--- NOTE | 2019-12-14 11:45 | NUR ---
UNIT 2 OF 2 PRBC INFUSING W/O INCIDENT INTO THE KIRSTIN. CHECKLIST COMPLETED.CONSENT ON CHART. EXPLAINED TO PT S/S OF TRANSFUSION REACTION-STATES SHE UNDERSTANDS. VSS. WILL CONTINUE TO MONITOR. CALL LIGHT WITHIN REACH.
--- NOTE | 2019-12-14 12:13 | NUR ---
PT TOLERATING BLOOD WELL. STATES AFTER INFUSION SHE IS LEAVING AND THAT SHE IS THE BOSS. STATES HER DAUGHTER WILL PROVIDE TRANSPORT. WILL INFORM PRIMARY CARE TEAM.
--- NOTE | 2019-12-14 12:29 | NUR ---
CALLED PTS DAUGHTER PER HER REQUEST. DAUGHTER STATES SHE WILL BE HERE IN AN HOUR.
--- NOTE | 2019-12-14 13:10 | NUR ---
PT TOLERATED BLOOD TRANSFUSION WELL. NO S/S ADVERSE REACTION NOTED. VSS. PT STATES HER DAUGHTER IS ALMOST HERE TO GET HER.
--- NOTE | 2019-12-14 13:45 | NUR ---
PT REFUSED WOUND CARE PHOTOS-LEFT AMA.
--- NOTE | 2019-12-14 13:45 | NUR ---
Patient signed out AMA. Patient encouraged to stay and advised of possible consequences of premature discharge. Physician ELMO and supervisor steno pool notified. Patient instructed what to do regarding care post-departure from the hospital; emergency phone numbers provided. Patent was accompanied by DAUGHTER. Hep Lock discontinued. Site asymptomatic. Pressure applied. Sterile dressing applied. TONIA COLE DESTINY
--- NOTE | 2019-12-14 14:00 | NUR ---
OT NOTE Occupational therapy order received and chart reviewed. Attempted to see patient at lunch time however she was receiving a blood transfusion. Attempted to see patient at 1400 and per nurse patient left AMA following her transfusion. No OT services provided this date. Thank you. Petrona Cifuentes, OTR/L
--- NOTE | 2019-12-14 14:00 | NUR ---
PHYSICAL THERAPY Physical therapy evaluation attempted before lunch. Patient was receiving blood transfusion at that time. Attempted to evaluate patient at 14:00. Per nurse, patient discharged AMA following blood transfusion. No PT services provided this date. Thank you. Shirin Zaman,PT,DPT
== END 2019-12-14 14:09 | disposition left against medical advice (07) | DRG 378 ==
LOC: ED 20:50 → EDHOLD 22:52 → 5E 23:11
PROVIDERS: Internal Medicine; Nurse Practitioner Family; ADMIT Family Medicine; ATTEND Family Medicine
PROC: 30233N1 Transfusion of Nonautologous Red Blood Cells into Peripheral Vein, Percutaneous Approach (ICD-10-PCS; principal; 2019-12-14)
DX: K92.2 Gastrointestinal hemorrhage, unspecified (principal); E87.1 Hypo-osmolality and hyponatremia; E44.0 Moderate protein-calorie malnutrition; E89.0 Postprocedural hypothyroidism; I25.10 Atherosclerotic heart disease of native coronary artery without angina pectoris; E11.40 Type 2 diabetes mellitus with diabetic neuropathy, unspecified; I10 Essential (primary) hypertension; K21.9 Gastro-esophageal reflux disease without esophagitis; E78.5 Hyperlipidemia, unspecified; M81.0 Age-related osteoporosis without current pathological fracture; G25.81 Restless legs syndrome; I16.0 Hypertensive urgency; M25.521 Pain in right elbow; E87.8 Other disorders of electrolyte and fluid balance, not elsewhere classified; E55.9 Vitamin D deficiency, unspecified; F17.200 Nicotine dependence, unspecified, uncomplicated; E11.65 Type 2 diabetes mellitus with hyperglycemia; Z66 Do not resuscitate; E11.69 Type 2 diabetes mellitus with other specified complication; Z51.5 Encounter for palliative care; Z53.29 Procedure and treatment not carried out because of patient's decision for other reasons; D50.0 Iron deficiency anemia secondary to blood loss (chronic); Z80.1 Family history of malignant neoplasm of trachea, bronchus and lung; Z83.6 Family history of other diseases of the respiratory system; Z80.52 Family history of malignant neoplasm of bladder; Z82.49 Family history of ischemic heart disease and other diseases of the circulatory system; Z90.710 Acquired absence of both cervix and uterus; Z98.42 Cataract extraction status, left eye; Z98.41 Cataract extraction status, right eye; Z90.49 Acquired absence of other specified parts of digestive tract; Z86.73 Personal history of transient ischemic attack (TIA), and cerebral infarction without residual deficits; Z88.8 Allergy status to other drugs, medicaments and biological substances

== ENCOUNTER → 2020-01-12 | Outpatient (CLI) | payer MEDICARE ==
[2020-01-12] VITALS (14 sets, daily range): BP systolic 124–163; BP diastolic 40–63
[~2020-01-12] MED LIST changes: +Mysoline50 MG PO
== END | disposition home or self-care (01) ==
LOC: TRNFUSION 02:50
PROVIDERS: ATTEND Physician Assistant
DX: D50.9 Iron deficiency anemia, unspecified (principal); I10 Essential (primary) hypertension; M19.90 Unspecified osteoarthritis, unspecified site; E11.9 Type 2 diabetes mellitus without complications; K21.9 Gastro-esophageal reflux disease without esophagitis; F32.9 Major depressive disorder, single episode, unspecified; E78.00 Pure hypercholesterolemia, unspecified; F41.9 Anxiety disorder, unspecified; Z90.710 Acquired absence of both cervix and uterus; Z87.891 Personal history of nicotine dependence

== ENCOUNTER → 2020-05-31 | Outpatient (CLI) | payer MEDICARE ==
[2020-05-31] VITALS (11 sets, daily range): BP systolic 103–138; BP diastolic 40–71
[~2020-05-31] MED LIST changes: +CELEXA10 MG PO
== END | disposition home or self-care (01) ==
LOC: TRNFUSION 05-30 05:38
PROVIDERS: ATTEND Physician Assistant
DX: D50.9 Iron deficiency anemia, unspecified (principal); I10 Essential (primary) hypertension; M19.90 Unspecified osteoarthritis, unspecified site; E11.9 Type 2 diabetes mellitus without complications; K21.9 Gastro-esophageal reflux disease without esophagitis; F32.9 Major depressive disorder, single episode, unspecified; E78.00 Pure hypercholesterolemia, unspecified; F41.9 Anxiety disorder, unspecified; Z87.891 Personal history of nicotine dependence

== ENCOUNTER → 2020-06-14 | Outpatient (CLI) | payer MEDICARE ==
[2020-06-14] VITALS (11 sets, daily range): BP systolic 99–166; BP diastolic 40–75
== END | disposition home or self-care (01) ==
LOC: TRNFUSION 00:24
PROVIDERS: ATTEND Physician Assistant
DX: D50.9 Iron deficiency anemia, unspecified (principal); I10 Essential (primary) hypertension; M19.90 Unspecified osteoarthritis, unspecified site; E11.9 Type 2 diabetes mellitus without complications; K21.9 Gastro-esophageal reflux disease without esophagitis; F32.9 Major depressive disorder, single episode, unspecified; E78.00 Pure hypercholesterolemia, unspecified; F17.200 Nicotine dependence, unspecified, uncomplicated; Z86.73 Personal history of transient ischemic attack (TIA), and cerebral infarction without residual deficits

== ENCOUNTER → 2020-06-30 | Outpatient (CLI) | payer MEDICARE ==
[2020-06-30] VITALS (7 sets, daily range): BP systolic 92–108; BP diastolic 30–62
== END | disposition home or self-care (01) ==
LOC: TRNFUSION 06-28 00:43
PROVIDERS: ATTEND Physician Assistant
DX: D50.9 Iron deficiency anemia, unspecified (principal)

== ENCOUNTER 2020-07-08 11:05 | Inpatient (IN) | payer MEDICARE ==
[~2020-07-08] VITALS: Ht 160 cm; Wt 61.4 kg
[2020-07-08] VITALS (7 sets, daily range): BP systolic 95–164; BP diastolic 35–58
[~2020-07-08 11:05] MED LIST changes: -CELEXA10 MG PO
[2020-07-08 11:34] LABS: HEMATOCRIT 22.9 % (37.0-47.0); MEAN CELL VOLUME 97.4 fl (81.0-99.0); MEAN CORPUSCULAR HGB 27.7 pg (27.0-31.0); MEAN CORPUSCULAR HGB CONC 28.4 g/dl (33.0-37.0); PLATELET COUNT AUTOMATED 224 10*3/uL (130-400); RED BLOOD COUNT 2.35 10*6/uL (4.10-5.10); RED CELL DISTRI WIDTH 17.2 % (0-14.5); WHITE BLOOD COUNT 7.8 10*3/uL (4.8-10.8)
[2020-07-08 11:45] LABS: BUN 11 mg/dl (7-24); CHLORIDE 98 mmol/L (98-107); CREATININE 0.52 mg/dL (0.55-1.02); POTASSIUM 4.9 mmol/L (3.5-5.1); SODIUM 130 mmol/L (136-145)
[2020-07-08 11:51] LABS: TOTAL CELLS COUNTED 100 #CELLS
[2020-07-08 11:52] LABS: PLATELET SUFFICIENCY NORMAL (NORMAL); POLYCHROMASIA SLIGHT
[2020-07-08 11:53] LABS: ROULEAUX SLIGHT
[2020-07-08 11:54] LABS: BURR CELLS FEW; SCHISTOCYTES FEW
[2020-07-08] MEDS ORDERED: CELEXA10 MG PO (15:12)
[2020-07-09] VITALS (20 sets, daily range): BP systolic 128–189; BP diastolic 37–58
[2020-07-09 00:31] LABS: MEAN CORPUSCULAR HGB CONC 28.3 g/dl (33.0-37.0); MEAN PLATELET VOLUME 9.7 fl (9.6-12.3); PLATELET COUNT AUTOMATED 158 10*3/uL (130-400); RED BLOOD COUNT 1.93 10*6/uL (4.10-5.10); RED CELL DISTRI WIDTH 17.4 % (0-14.5); WHITE BLOOD COUNT 4.8 10*3/uL (4.8-10.8)
[2020-07-09 00:37] LABS: HEMATOCRIT 19.1 % (37.0-47.0)
[2020-07-09 01:22] LABS: PLATELET SUFFICIENCY NORMAL (NORMAL); TOTAL CELLS COUNTED 100 #CELLS
[2020-07-09 01:23] LABS: BURR CELLS FEW; POLYCHROMASIA SLIGHT; ROULEAUX SLIGHT; SCHISTOCYTES FEW
[2020-07-09 11:54] LABS: BASO % 0.2 % (0.0-1.0); EOS % 0.4 % (1.0-4.0); HEMATOCRIT 29.9 % (37.0-47.0); LYMPH # 0.5 10*3/uL (1.3-4.4); MEAN CELL VOLUME 92.3 fl (81.0-99.0); MEAN CORPUSCULAR HGB 27.5 pg (27.0-31.0); MEAN CORPUSCULAR HGB CONC 29.8 g/dl (33.0-37.0); MEAN PLATELET VOLUME 9.9 fl (9.6-12.3); MONO # 0.2 10*3/uL (0.1-1.0); MONO % 5.2 % (3.0-9.0); NEUT # 3.7 10*3/uL (2.3-7.9); NEUT % 82.8 % (47.0-73.0); PLATELET COUNT AUTOMATED 144 10*3/uL (130-400); RED BLOOD COUNT 3.24 10*6/uL (4.10-5.10); RED CELL DISTRI WIDTH 18.6 % (0-14.5); WHITE BLOOD COUNT 4.5 10*3/uL (4.8-10.8)
[2020-07-09 12:02] LABS: BUN 9 mg/dl (7-24); CHLORIDE 101 mmol/L (98-107); CREATININE 0.52 mg/dL (0.55-1.02); SODIUM 131 mmol/L (136-145)
[2020-07-09 13:13] LABS: BASO % 0.4 % (0.0-1.0); EOS % 0.6 % (1.0-4.0); LYMPH # 0.5 10*3/uL (1.3-4.4); LYMPH % 10.7 % (27.0-41.0); MEAN CELL VOLUME 92.2 fl (81.0-99.0); MEAN CORPUSCULAR HGB CONC 30.3 g/dl (33.0-37.0); MEAN PLATELET VOLUME 9.7 fl (9.6-12.3); MONO # 0.3 10*3/uL (0.1-1.0); MONO % 5.1 % (3.0-9.0); NEUT # 4.2 10*3/uL (2.3-7.9); NEUT % 82.4 % (47.0-73.0); PLATELET COUNT AUTOMATED 158 10*3/uL (130-400); RED BLOOD COUNT 3.47 10*6/uL (4.10-5.10); RED CELL DISTRI WIDTH 18.6 % (0-14.5); WHITE BLOOD COUNT 5.1 10*3/uL (4.8-10.8)
[2020-07-10] VITALS: BP 155/46
[2020-07-10 06:44] LABS: BASO % 0.3 % (0.0-1.0); EOS # 0.1 10*3/uL (0.0-0.4); HEMATOCRIT 28.7 % (37.0-47.0); LYMPH # 0.6 10*3/uL (1.3-4.4); LYMPH % 15.6 % (27.0-41.0); MEAN CELL VOLUME 91.1 fl (81.0-99.0); MEAN CORPUSCULAR HGB 27.3 pg (27.0-31.0); MEAN PLATELET VOLUME 9.6 fl (9.6-12.3); MONO # 0.3 10*3/uL (0.1-1.0); MONO % 7.4 % (3.0-9.0); NEUT # 2.6 10*3/uL (2.3-7.9); NEUT % 74.4 % (47.0-73.0); PLATELET COUNT AUTOMATED 157 10*3/uL (130-400); RED BLOOD COUNT 3.15 10*6/uL (4.10-5.10); RED CELL DISTRI WIDTH 18.5 % (0-14.5); WHITE BLOOD COUNT 3.5 10*3/uL (4.8-10.8)
[2020-07-10 08:23] VITALS: BP 147/65
== END 2020-07-10 12:02 | disposition home health service (06) | DRG 378 ==
LOC: ED 11:05 → EDHOLD 12:38 → 5E 12:38
PROVIDERS: Emergency Medicine; Internal Medicine Gastroenterology; Student in an Organized Health Care Education/Training Program; ADMIT Internal Medicine; ATTEND Internal Medicine
PROC: 30233N1 Transfusion of Nonautologous Red Blood Cells into Peripheral Vein, Percutaneous Approach (ICD-10-PCS; principal; 2020-07-09)
DX: K92.2 Gastrointestinal hemorrhage, unspecified (principal); E87.1 Hypo-osmolality and hyponatremia; E44.0 Moderate protein-calorie malnutrition; D50.0 Iron deficiency anemia secondary to blood loss (chronic); F17.210 Nicotine dependence, cigarettes, uncomplicated; K21.9 Gastro-esophageal reflux disease without esophagitis; E11.65 Type 2 diabetes mellitus with hyperglycemia; M81.0 Age-related osteoporosis without current pathological fracture; I25.10 Atherosclerotic heart disease of native coronary artery without angina pectoris; I87.2 Venous insufficiency (chronic) (peripheral); G25.81 Restless legs syndrome; E78.5 Hyperlipidemia, unspecified; E55.9 Vitamin D deficiency, unspecified; I10 Essential (primary) hypertension; E03.9 Hypothyroidism, unspecified; Z87.19 Personal history of other diseases of the digestive system; Z90.710 Acquired absence of both cervix and uterus; Z90.49 Acquired absence of other specified parts of digestive tract; Z80.52 Family history of malignant neoplasm of bladder; Z82.5 Family history of asthma and other chronic lower respiratory diseases; Z82.49 Family history of ischemic heart disease and other diseases of the circulatory system; Z88.8 Allergy status to other drugs, medicaments and biological substances; Z79.899 Other long term (current) drug therapy; Z68.23 Body mass index [BMI] 23.0-23.9, adult

== ENCOUNTER 2020-07-24 21:04 | Inpatient (IN) | payer MEDICARE ==
[~2020-07-24] VITALS: Ht 160 cm; Wt 60.0 kg
[~2020-07-24 21:04] MED LIST changes: +CELEXA10 MG PO
[2020-07-24 21:10] VITALS: BP 89/55
[2020-07-25] VITALS (25 sets, daily range): BP systolic 97–1148; BP diastolic 22–51
[2020-07-25 07:41] LABS: BASO % 0.2 % (0.0-1.0); EOS % 0.6 % (1.0-4.0); HEMATOCRIT 27.5 % (37.0-47.0); LYMPH # 0.6 10*3/uL (1.3-4.4); LYMPH % 11.7 % (27.0-41.0); MEAN CORPUSCULAR HGB 27.3 pg (27.0-31.0); MEAN CORPUSCULAR HGB CONC 30.9 g/dl (33.0-37.0); MEAN PLATELET VOLUME 9.8 fl (9.6-12.3); MONO # 0.3 10*3/uL (0.1-1.0); MONO % 6.2 % (3.0-9.0); NEUT # 4.2 10*3/uL (2.3-7.9); NEUT % 80.9 % (47.0-73.0); PLATELET COUNT AUTOMATED 166 10*3/uL (130-400); RED BLOOD COUNT 3.11 10*6/uL (4.10-5.10); RED CELL DISTRI WIDTH 15.5 % (0-14.5); WHITE BLOOD COUNT 5.1 10*3/uL (4.8-10.8)
[2020-07-25 07:43] LABS: ALBUMIN 2.9 gm/dl (3.1-4.5); ALKALINE PHOSPHATASE 67 U/L (45-117); BUN 13 mg/dl (7-24); CHLORIDE 102 mmol/L (98-107); CREATININE 0.44 mg/dL (0.55-1.02); POTASSIUM 3.9 mmol/L (3.5-5.1); SGOT/AST 12 IU/L (3-35); SGPT/ALT 13 U/L (12-78); SODIUM 132 mmol/L (136-145); TOTAL PROTEIN 5.5 gm/dL (6.4-8.2)
[2020-07-25 07:44] LABS: MEAN CELL VOLUME 88.4 fl (81.0-99.0)
[2020-07-25 07:45] LABS: ACT PARTIAL THROMBO TIME 23.9 SECONDS (20.0-32.1); INTERNATIONAL NORM RATIO 0.9 (2.0-3.5)
[2020-07-25] MEDS ORDERED: PROTONIX40 MG PO (10:34)
[2020-07-25] MEDS ORDERED: CLOPIDOGREL75 MG PO (10:34)
[2020-07-26] VITALS: BP 171/48
[2020-07-26 06:38] LABS: BASO % 0.2 % (0.0-1.0); EOS # 0.1 10*3/uL (0.0-0.4); EOS % 2.2 % (1.0-4.0); HEMATOCRIT 30.2 % (37.0-47.0); LYMPH # 0.9 10*3/uL (1.3-4.4); LYMPH % 21.1 % (27.0-41.0); MEAN CORPUSCULAR HGB 27.1 pg (27.0-31.0); MEAN CORPUSCULAR HGB CONC 30.8 g/dl (33.0-37.0); MONO # 0.3 10*3/uL (0.1-1.0); MONO % 7.9 % (3.0-9.0); NEUT # 2.8 10*3/uL (2.3-7.9); NEUT % 68.4 % (47.0-73.0); PLATELET COUNT AUTOMATED 186 10*3/uL (130-400); RED BLOOD COUNT 3.43 10*6/uL (4.10-5.10); RED CELL DISTRI WIDTH 15.7 % (0-14.5)
[2020-07-26 08:00] VITALS: BP 173/54
== END 2020-07-26 12:18 | disposition home health service (06) | DRG 811 ==
LOC: ED 21:04 → 4E 07-25 01:02 → EDHOLD 07-25 01:02 → 4E 07-25 08:29
PROVIDERS: Hospitalist; Internal Medicine; ADMIT Family Medicine; ATTEND Family Medicine
PROC: 30233N1 Transfusion of Nonautologous Red Blood Cells into Peripheral Vein, Percutaneous Approach (ICD-10-PCS; principal; 2020-07-25)
DX: D50.0 Iron deficiency anemia secondary to blood loss (chronic) (principal); E43 Unspecified severe protein-calorie malnutrition; E87.1 Hypo-osmolality and hyponatremia; K21.9 Gastro-esophageal reflux disease without esophagitis; E11.42 Type 2 diabetes mellitus with diabetic polyneuropathy; M81.0 Age-related osteoporosis without current pathological fracture; I25.10 Atherosclerotic heart disease of native coronary artery without angina pectoris; I87.2 Venous insufficiency (chronic) (peripheral); E78.2 Mixed hyperlipidemia; I10 Essential (primary) hypertension; E03.9 Hypothyroidism, unspecified; E55.9 Vitamin D deficiency, unspecified; G25.81 Restless legs syndrome; F17.210 Nicotine dependence, cigarettes, uncomplicated; R00.1 Bradycardia, unspecified; E11.65 Type 2 diabetes mellitus with hyperglycemia; Z91.048 Other nonmedicinal substance allergy status; Z90.710 Acquired absence of both cervix and uterus; Z98.42 Cataract extraction status, left eye; Z98.41 Cataract extraction status, right eye; Z90.49 Acquired absence of other specified parts of digestive tract; Z82.49 Family history of ischemic heart disease and other diseases of the circulatory system; Z80.52 Family history of malignant neoplasm of bladder; Z82.5 Family history of asthma and other chronic lower respiratory diseases; Z83.3 Family history of diabetes mellitus; Z86.73 Personal history of transient ischemic attack (TIA), and cerebral infarction without residual deficits; Z79.899 Other long term (current) drug therapy; Z68.23 Body mass index [BMI] 23.0-23.9, adult

== ENCOUNTER → 2020-08-01 | Outpatient (CLI) | payer MEDICARE ==
[2020-08-01] VITALS (11 sets, daily range): BP systolic 95–130; BP diastolic 33–52
[~2020-08-01] MED LIST changes: +CLOPIDOGREL75 MG PO; +PROTONIX40 MG PO
== END | disposition home or self-care (01) ==
LOC: TRNFUSION 00:49
PROVIDERS: ATTEND Family Medicine
DX: D64.9 Anemia, unspecified (principal); I10 Essential (primary) hypertension; M19.90 Unspecified osteoarthritis, unspecified site; E11.9 Type 2 diabetes mellitus without complications; K21.9 Gastro-esophageal reflux disease without esophagitis; F32.9 Major depressive disorder, single episode, unspecified; E78.00 Pure hypercholesterolemia, unspecified; F41.9 Anxiety disorder, unspecified; F17.200 Nicotine dependence, unspecified, uncomplicated; Z86.73 Personal history of transient ischemic attack (TIA), and cerebral infarction without residual deficits

== ENCOUNTER 2020-08-16 23:41 | Inpatient (IN) | payer MEDICARE ==
[~2020-08-16] VITALS: Ht 160 cm; Wt 59.6 kg
[2020-08-16 23:51] VITALS: BP 107/36
[2020-08-17] VITALS (15 sets, daily range): BP systolic 90–155; BP diastolic 34–89
[2020-08-17 00:38] LABS: EOS % 0.3 % (1.0-4.0); LYMPH # 0.4 10*3/uL (1.3-4.4); LYMPH % 6.2 % (27.0-41.0); MEAN CORPUSCULAR HGB 28.8 pg (27.0-31.0); MEAN CORPUSCULAR HGB CONC 29.4 g/dl (33.0-37.0); MEAN PLATELET VOLUME 9.6 fl (9.6-12.3); MONO # 0.4 10*3/uL (0.1-1.0); MONO % 6.7 % (3.0-9.0); NEUT % 86.3 % (47.0-73.0); PLATELET COUNT AUTOMATED 204 10*3/uL (130-400); RED BLOOD COUNT 1.98 10*6/uL (4.10-5.10); RED CELL DISTRI WIDTH 16.9 % (0-14.5); WHITE BLOOD COUNT 5.8 10*3/uL (4.8-10.8)
[2020-08-17 00:44] LABS: HEMATOCRIT 19.4 % (37.0-47.0)
[2020-08-17 00:58] LABS: TOTAL CELLS COUNTED 100 #CELLS
[2020-08-17 00:59] LABS: PLATELET SUFFICIENCY NORMAL (NORMAL)
[2020-08-17 01:01] LABS: ALBUMIN 2.8 gm/dl (3.1-4.5); ALKALINE PHOSPHATASE 69 U/L (45-117); BUN 14 mg/dl (7-24); CHLORIDE 99 mmol/L (98-107); CREATININE 0.48 mg/dL (0.55-1.02); POTASSIUM 4.5 mmol/L (3.5-5.1); SGOT/AST 18 IU/L (3-35); SGPT/ALT 15 U/L (12-78); SODIUM 130 mmol/L (136-145); TOTAL PROTEIN 5.5 gm/dL (6.4-8.2)
[2020-08-17 06:28] LABS: MEAN CELL VOLUME 96.6 fl (81.0-99.0); MEAN CORPUSCULAR HGB 28.5 pg (27.0-31.0); MEAN CORPUSCULAR HGB CONC 29.5 g/dl (33.0-37.0); MEAN PLATELET VOLUME 9.6 fl (9.6-12.3); PLATELET COUNT AUTOMATED 205 10*3/uL (130-400); RED BLOOD COUNT 2.07 10*6/uL (4.10-5.10); RED CELL DISTRI WIDTH 16.7 % (0-14.5); WHITE BLOOD COUNT 4.8 10*3/uL (4.8-10.8)
[2020-08-17 06:52] LABS: ALBUMIN 2.5 gm/dl (3.1-4.5); ALKALINE PHOSPHATASE 72 U/L (45-117); BUN 13 mg/dl (7-24); CHLORIDE 101 mmol/L (98-107); CREATININE 0.51 mg/dL (0.55-1.02); POTASSIUM 4.2 mmol/L (3.5-5.1); SGOT/AST 15 IU/L (3-35); SGPT/ALT 15 U/L (12-78); SODIUM 130 mmol/L (136-145); TOTAL PROTEIN 5.6 gm/dL (6.4-8.2)
[2020-08-17 07:08] LABS: ATYPICAL LYMPHS 1 % (0-0); PLATELET SUFFICIENCY NORMAL (NORMAL); POLYCHROMASIA SLIGHT; TOTAL CELLS COUNTED 100 #CELLS
[2020-08-17 07:09] LABS: OVALOCYTES FEW; TARGET CELLS FEW
[2020-08-17 23:31] LABS: BASO % 0.2 % (0.0-1.0); LYMPH # 0.7 10*3/uL (1.3-4.4); LYMPH % 17.2 % (27.0-41.0); MEAN CORPUSCULAR HGB CONC 30.8 g/dl (33.0-37.0); MEAN PLATELET VOLUME 9.9 fl (9.6-12.3); MONO # 0.3 10*3/uL (0.1-1.0); MONO % 7.4 % (3.0-9.0); NEUT % 73.7 % (47.0-73.0); PLATELET COUNT AUTOMATED 165 10*3/uL (130-400); RED BLOOD COUNT 2.76 10*6/uL (4.10-5.10); RED CELL DISTRI WIDTH 16.2 % (0-14.5); WHITE BLOOD COUNT 4.1 10*3/uL (4.8-10.8)
[2020-08-17 23:35] LABS: MEAN CELL VOLUME 94.2 fl (81.0-99.0)
[2020-08-18] VITALS (8 sets, daily range): BP systolic 122–173; BP diastolic 40–69
[2020-08-18 06:11] LABS: BASO % 0.3 % (0.0-1.0); EOS # 0.1 10*3/uL (0.0-0.4); EOS % 1.4 % (1.0-4.0); HEMATOCRIT 27.6 % (37.0-47.0); LYMPH # 0.7 10*3/uL (1.3-4.4); LYMPH % 19.1 % (27.0-41.0); MEAN CELL VOLUME 93.2 fl (81.0-99.0); MEAN CORPUSCULAR HGB 28.7 pg (27.0-31.0); MEAN CORPUSCULAR HGB CONC 30.8 g/dl (33.0-37.0); MEAN PLATELET VOLUME 9.8 fl (9.6-12.3); MONO # 0.3 10*3/uL (0.1-1.0); MONO % 7.5 % (3.0-9.0); NEUT # 2.5 10*3/uL (2.3-7.9); NEUT % 71.4 % (47.0-73.0); PLATELET COUNT AUTOMATED 170 10*3/uL (130-400); RED BLOOD COUNT 2.96 10*6/uL (4.10-5.10); RED CELL DISTRI WIDTH 16.2 % (0-14.5); WHITE BLOOD COUNT 3.5 10*3/uL (4.8-10.8)
[2020-08-19] VITALS: BP 166/60
[2020-08-19 06:23] LABS: EOS % 0.8 % (1.0-4.0); HEMATOCRIT 27.3 % (37.0-47.0); LYMPH # 0.6 10*3/uL (1.3-4.4); LYMPH % 17.6 % (27.0-41.0); MEAN CELL VOLUME 92.9 fl (81.0-99.0); MEAN CORPUSCULAR HGB 28.2 pg (27.0-31.0); MEAN CORPUSCULAR HGB CONC 30.4 g/dl (33.0-37.0); MONO # 0.3 10*3/uL (0.1-1.0); MONO % 6.9 % (3.0-9.0); NEUT # 2.7 10*3/uL (2.3-7.9); NEUT % 74.4 % (47.0-73.0); PLATELET COUNT AUTOMATED 168 10*3/uL (130-400); RED BLOOD COUNT 2.94 10*6/uL (4.10-5.10); RED CELL DISTRI WIDTH 15.8 % (0-14.5); WHITE BLOOD COUNT 3.6 10*3/uL (4.8-10.8)
[2020-08-19 08:00] VITALS: BP 166/50
== END 2020-08-19 12:00 | disposition home health service (06) | DRG 377 ==
LOC: ED 23:41 → 4E 08-17 01:11 → EDHOLD 08-17 01:11 → 4E 08-17 01:27
PROVIDERS: Emergency Medicine; Internal Medicine; Student in an Organized Health Care Education/Training Program; ADMIT Internal Medicine; ATTEND Internal Medicine
PROC: 30233N1 Transfusion of Nonautologous Red Blood Cells into Peripheral Vein, Percutaneous Approach (ICD-10-PCS; 2020-08-17)
PROC: 0D598ZZ Destruction of Duodenum, Via Natural or Artificial Opening Endoscopic (ICD-10-PCS; principal; 2020-08-18)
DX: K31.811 Angiodysplasia of stomach and duodenum with bleeding (principal); E43 Unspecified severe protein-calorie malnutrition; E87.1 Hypo-osmolality and hyponatremia; K29.71 Gastritis, unspecified, with bleeding; D50.0 Iron deficiency anemia secondary to blood loss (chronic); E11.42 Type 2 diabetes mellitus with diabetic polyneuropathy; G25.81 Restless legs syndrome; I87.2 Venous insufficiency (chronic) (peripheral); K21.9 Gastro-esophageal reflux disease without esophagitis; E78.5 Hyperlipidemia, unspecified; I10 Essential (primary) hypertension; E03.9 Hypothyroidism, unspecified; I25.10 Atherosclerotic heart disease of native coronary artery without angina pectoris; E55.9 Vitamin D deficiency, unspecified; M81.0 Age-related osteoporosis without current pathological fracture; E11.65 Type 2 diabetes mellitus with hyperglycemia; F17.210 Nicotine dependence, cigarettes, uncomplicated; Z71.6 Tobacco abuse counseling; Z91.048 Other nonmedicinal substance allergy status; Z90.49 Acquired absence of other specified parts of digestive tract; Z90.710 Acquired absence of both cervix and uterus; Z98.42 Cataract extraction status, left eye; Z98.41 Cataract extraction status, right eye; Z82.49 Family history of ischemic heart disease and other diseases of the circulatory system; Z80.52 Family history of malignant neoplasm of bladder; Z81.2 Family history of tobacco abuse and dependence; Z80.1 Family history of malignant neoplasm of trachea, bronchus and lung; Z83.3 Family history of diabetes mellitus; Z86.73 Personal history of transient ischemic attack (TIA), and cerebral infarction without residual deficits; Z79.899 Other long term (current) drug therapy; Z68.31 Body mass index [BMI] 31.0-31.9, adult; Z87.11 Personal history of peptic ulcer disease; Z68.23 Body mass index [BMI] 23.0-23.9, adult

== ENCOUNTER → 2020-09-06 | Outpatient (CLI) | payer MEDICARE ==
[2020-09-06] VITALS (8 sets, daily range): BP systolic 90–98; BP diastolic 33–52
== END | disposition home or self-care (01) ==
LOC: TRNFUSION 01:03
PROVIDERS: ATTEND Physician Assistant
DX: D50.9 Iron deficiency anemia, unspecified (principal); I10 Essential (primary) hypertension; M19.90 Unspecified osteoarthritis, unspecified site; E11.9 Type 2 diabetes mellitus without complications; K21.9 Gastro-esophageal reflux disease without esophagitis; F32.9 Major depressive disorder, single episode, unspecified; E78.00 Pure hypercholesterolemia, unspecified; F41.9 Anxiety disorder, unspecified; F17.200 Nicotine dependence, unspecified, uncomplicated; Z86.73 Personal history of transient ischemic attack (TIA), and cerebral infarction without residual deficits

== ENCOUNTER 2020-09-19 18:06 | Inpatient (IN) | payer MEDICARE ==
[2020-09-19] VITALS (7 sets, daily range): BP systolic 101–134; BP diastolic 35–81
[~2020-09-19] VITALS: Ht 160 cm; Wt 57.6 kg
[2020-09-19 19:08] LABS: MEAN CELL VOLUME 94.4 fl (81.0-99.0); MEAN CORPUSCULAR HGB 27.9 pg (27.0-31.0); MEAN CORPUSCULAR HGB CONC 29.6 g/dl (33.0-37.0); MEAN PLATELET VOLUME 9.6 fl (9.6-12.3); PLATELET COUNT AUTOMATED 209 10*3/uL (130-400); RED BLOOD COUNT 2.15 10*6/uL (4.10-5.10); RED CELL DISTRI WIDTH 16.6 % (0-14.5); WHITE BLOOD COUNT 6.4 10*3/uL (4.8-10.8)
[2020-09-19 19:20] LABS: HEMATOCRIT 20.3 % (37.0-47.0)
[2020-09-19 19:22] LABS: ALBUMIN 2.7 gm/dl (3.1-4.5); ALKALINE PHOSPHATASE 74 U/L (45-117); BUN 14 mg/dl (7-24); CHLORIDE 100 mmol/L (98-107); CREATININE 0.56 mg/dL (0.55-1.02); POTASSIUM 4.3 mmol/L (3.5-5.1); SGOT/AST 13 IU/L (3-35); SGPT/ALT 17 U/L (12-78); SODIUM 131 mmol/L (136-145); TOTAL PROTEIN 5.7 gm/dL (6.4-8.2)
[2020-09-19 19:27] LABS: PLATELET SUFFICIENCY NORMAL (NORMAL); TOTAL CELLS COUNTED 100 #CELLS
[2020-09-19 19:28] LABS: MICROCYTOSIS SLIGHT
[2020-09-20] VITALS (11 sets, daily range): BP systolic 98–153; BP diastolic 42–75
[2020-09-20 00:59] LABS: BASO % 0.2 % (0.0-1.0); EOS % 0.2 % (1.0-4.0); HEMATOCRIT 23.7 % (37.0-47.0); LYMPH # 0.6 10*3/uL (1.3-4.4); LYMPH % 11.7 % (27.0-41.0); MEAN CELL VOLUME 92.2 fl (81.0-99.0); MEAN CORPUSCULAR HGB 28.4 pg (27.0-31.0); MEAN CORPUSCULAR HGB CONC 30.8 g/dl (33.0-37.0); MEAN PLATELET VOLUME 9.2 fl (9.6-12.3); MONO # 0.3 10*3/uL (0.1-1.0); MONO % 5.9 % (3.0-9.0); NEUT # 4.1 10*3/uL (2.3-7.9); NEUT % 81.8 % (47.0-73.0); PLATELET COUNT AUTOMATED 180 10*3/uL (130-400); RED BLOOD COUNT 2.57 10*6/uL (4.10-5.10); RED CELL DISTRI WIDTH 16.6 % (0-14.5); WHITE BLOOD COUNT 5.1 10*3/uL (4.8-10.8)
[2020-09-20 05:44] LABS: ALBUMIN 2.7 gm/dl (3.1-4.5); ALKALINE PHOSPHATASE 56 U/L (45-117); BUN 10 mg/dl (7-24); CHLORIDE 101 mmol/L (98-107); CREATININE 0.46 mg/dL (0.55-1.02); POTASSIUM 4.1 mmol/L (3.5-5.1); SGOT/AST 9 IU/L (3-35); SGPT/ALT 15 U/L (12-78); SODIUM 134 mmol/L (136-145); TOTAL PROTEIN 5.3 gm/dL (6.4-8.2)
[2020-09-20 06:19] LABS: EOS % 0.2 % (1.0-4.0); HEMATOCRIT 23.5 % (37.0-47.0); LYMPH # 0.6 10*3/uL (1.3-4.4); LYMPH % 14.5 % (27.0-41.0); MEAN CELL VOLUME 92.5 fl (81.0-99.0); MEAN CORPUSCULAR HGB 28.3 pg (27.0-31.0); MEAN CORPUSCULAR HGB CONC 30.6 g/dl (33.0-37.0); MEAN PLATELET VOLUME 9.9 fl (9.6-12.3); MONO # 0.2 10*3/uL (0.1-1.0); MONO % 5.6 % (3.0-9.0); NEUT # 3.4 10*3/uL (2.3-7.9); NEUT % 79.5 % (47.0-73.0); PLATELET COUNT AUTOMATED 194 10*3/uL (130-400); RED BLOOD COUNT 2.54 10*6/uL (4.10-5.10); RED CELL DISTRI WIDTH 16.7 % (0-14.5); WHITE BLOOD COUNT 4.3 10*3/uL (4.8-10.8)
[2020-09-20] MEDS ORDERED: MIRTAZAPINE15 M2 PO (11:50)
[2020-09-20] MEDS ORDERED: CLOPIDOGREL75 MG PO (11:58)
[2020-09-20 13:41] LABS: BASO % 0.2 % (0.0-1.0); EOS % 0.3 % (1.0-4.0); HEMATOCRIT 27.9 % (37.0-47.0); LYMPH # 0.5 10*3/uL (1.3-4.4); LYMPH % 8.6 % (27.0-41.0); MEAN CORPUSCULAR HGB 28.7 pg (27.0-31.0); MEAN CORPUSCULAR HGB CONC 30.8 g/dl (33.0-37.0); MEAN PLATELET VOLUME 9.4 fl (9.6-12.3); MONO # 0.3 10*3/uL (0.1-1.0); MONO % 4.2 % (3.0-9.0); NEUT # 5.3 10*3/uL (2.3-7.9); NEUT % 86.1 % (47.0-73.0); PLATELET COUNT AUTOMATED 184 10*3/uL (130-400); RED CELL DISTRI WIDTH 16.5 % (0-14.5); WHITE BLOOD COUNT 6.2 10*3/uL (4.8-10.8)
== END 2020-09-20 16:16 | disposition home or self-care (01) | DRG 377 ==
LOC: ED 18:06 → 4E 20:09 → EDHOLD 20:09 → 4E 20:58
PROVIDERS: Family Medicine; Hospitalist; Internal Medicine; ADMIT Internal Medicine; ATTEND Internal Medicine
PROC: 30233N1 Transfusion of Nonautologous Red Blood Cells into Peripheral Vein, Percutaneous Approach (ICD-10-PCS; principal; 2020-09-19)
DX: K26.4 Chronic or unspecified duodenal ulcer with hemorrhage (principal); E43 Unspecified severe protein-calorie malnutrition; D62 Acute posthemorrhagic anemia; E87.1 Hypo-osmolality and hyponatremia; K55.20 Angiodysplasia of colon without hemorrhage; I71.4 Abdominal aortic aneurysm, without rupture; I87.2 Venous insufficiency (chronic) (peripheral); I25.10 Atherosclerotic heart disease of native coronary artery without angina pectoris; E11.42 Type 2 diabetes mellitus with diabetic polyneuropathy; I10 Essential (primary) hypertension; K21.9 Gastro-esophageal reflux disease without esophagitis; E78.5 Hyperlipidemia, unspecified; E03.9 Hypothyroidism, unspecified; M81.0 Age-related osteoporosis without current pathological fracture; G25.81 Restless legs syndrome; E11.65 Type 2 diabetes mellitus with hyperglycemia; E55.9 Vitamin D deficiency, unspecified; F17.210 Nicotine dependence, cigarettes, uncomplicated; Z79.899 Other long term (current) drug therapy; Z92.89 Personal history of other medical treatment; Z71.6 Tobacco abuse counseling; Z88.8 Allergy status to other drugs, medicaments and biological substances; Z90.49 Acquired absence of other specified parts of digestive tract; Z90.710 Acquired absence of both cervix and uterus; Z98.42 Cataract extraction status, left eye; Z98.41 Cataract extraction status, right eye; Z82.49 Family history of ischemic heart disease and other diseases of the circulatory system; Z80.52 Family history of malignant neoplasm of bladder; Z80.1 Family history of malignant neoplasm of trachea, bronchus and lung; Z83.6 Family history of other diseases of the respiratory system; Z86.73 Personal history of transient ischemic attack (TIA), and cerebral infarction without residual deficits; Z68.23 Body mass index [BMI] 23.0-23.9, adult

== ENCOUNTER → 2020-10-12 | Outpatient (CLI) | payer MEDICARE ==
[2020-10-12] VITALS (9 sets, daily range): BP systolic 100–123; BP diastolic 45–71
== END | disposition home or self-care (01) ==
LOC: TRNFUSION 01:37
PROVIDERS: ATTEND Physician Assistant
DX: D50.9 Iron deficiency anemia, unspecified (principal); I10 Essential (primary) hypertension; M19.90 Unspecified osteoarthritis, unspecified site; E11.9 Type 2 diabetes mellitus without complications; K21.9 Gastro-esophageal reflux disease without esophagitis; F32.9 Major depressive disorder, single episode, unspecified; E78.00 Pure hypercholesterolemia, unspecified; F41.9 Anxiety disorder, unspecified; F17.200 Nicotine dependence, unspecified, uncomplicated; Z86.73 Personal history of transient ischemic attack (TIA), and cerebral infarction without residual deficits

== ENCOUNTER 2020-10-31 16:43 | Inpatient (IN) | payer MEDICARE ==
[~2020-10-31] VITALS: Ht 160 cm; Wt 60.8 kg
[2020-10-31] VITALS (10 sets, daily range): BP systolic 78–171; BP diastolic 40–77
[2020-10-31 17:57] LABS: MEAN CELL VOLUME 98.5 fl (81.0-99.0); MEAN CORPUSCULAR HGB 29.4 pg (27.0-31.0); MEAN CORPUSCULAR HGB CONC 29.8 g/dl (33.0-37.0); MEAN PLATELET VOLUME 10.2 fl (9.6-12.3); PLATELET COUNT AUTOMATED 168 10*3/uL (130-400); RED BLOOD COUNT 1.94 10*6/uL (4.10-5.10); RED CELL DISTRI WIDTH 19.2 % (0-14.5); WHITE BLOOD COUNT 4.8 10*3/uL (4.8-10.8)
[2020-10-31 18:05] LABS: HEMATOCRIT 19.1 % (37.0-47.0)
[2020-10-31 18:19] LABS: ALBUMIN 2.8 gm/dl (3.1-4.5); ALKALINE PHOSPHATASE 49 U/L (45-117); BUN 15 mg/dl (7-24); CHLORIDE 97 mmol/L (98-107); CREATININE 0.58 mg/dL (0.55-1.02); POTASSIUM 4.1 mmol/L (3.5-5.1); SGOT/AST 17 IU/L (3-35); SGPT/ALT 16 U/L (12-78); SODIUM 128 mmol/L (136-145); TOTAL PROTEIN 5.5 gm/dL (6.4-8.2)
[2020-10-31 18:23] LABS: TOTAL CELLS COUNTED 100 #CELLS
[2020-10-31 18:24] LABS: PLATELET SUFFICIENCY NORMAL (NORMAL)
[2020-10-31 18:25] LABS: MICROCYTOSIS SLIGHT
[2020-11-01] VITALS (10 sets, daily range): BP systolic 99–175; BP diastolic 35–58
[2020-11-01 00:05] LABS: BASO % 0.3 % (0.0-1.0); EOS % 0.9 % (1.0-4.0); HEMATOCRIT 23.7 % (37.0-47.0); LYMPH # 0.4 10*3/uL (1.3-4.4); LYMPH % 11.3 % (27.0-41.0); MEAN CORPUSCULAR HGB CONC 31.6 g/dl (33.0-37.0); MEAN PLATELET VOLUME 9.5 fl (9.6-12.3); MONO # 0.2 10*3/uL (0.1-1.0); MONO % 6.7 % (3.0-9.0); NEUT # 2.8 10*3/uL (2.3-7.9); NEUT % 80.2 % (47.0-73.0); PLATELET COUNT AUTOMATED 143 10*3/uL (130-400); RED CELL DISTRI WIDTH 17.4 % (0-14.5); WHITE BLOOD COUNT 3.4 10*3/uL (4.8-10.8)
[2020-11-01 00:12] LABS: MEAN CELL VOLUME 94.8 fl (81.0-99.0)
[2020-11-01 05:57] LABS: ALBUMIN 2.8 gm/dl (3.1-4.5); BUN 12 mg/dl (7-24); CHLORIDE 102 mmol/L (98-107); CREATININE 0.36 mg/dL (0.55-1.02); POTASSIUM 3.7 mmol/L (3.5-5.1); SGPT/ALT 17 U/L (12-78); SODIUM 133 mmol/L (136-145)
[2020-11-01 06:05] LABS: ALKALINE PHOSPHATASE 43 U/L (45-117); SGOT/AST 16 IU/L (3-35); TOTAL PROTEIN 5.1 gm/dL (6.4-8.2)
[2020-11-01 06:12] LABS: BASO % 0.3 % (0.0-1.0); EOS % 0.6 % (1.0-4.0); HEMATOCRIT 26.2 % (37.0-47.0); LYMPH # 0.6 10*3/uL (1.3-4.4); LYMPH % 17.3 % (27.0-41.0); MEAN CELL VOLUME 93.6 fl (81.0-99.0); MEAN CORPUSCULAR HGB 29.3 pg (27.0-31.0); MEAN CORPUSCULAR HGB CONC 31.3 g/dl (33.0-37.0); MEAN PLATELET VOLUME 10.1 fl (9.6-12.3); MONO # 0.2 10*3/uL (0.1-1.0); MONO % 5.4 % (3.0-9.0); NEUT # 2.6 10*3/uL (2.3-7.9); NEUT % 76.1 % (47.0-73.0); PLATELET COUNT AUTOMATED 138 10*3/uL (130-400); WHITE BLOOD COUNT 3.4 10*3/uL (4.8-10.8)
== END 2020-11-01 09:55 | disposition home or self-care (01) | DRG 378 ==
LOC: ED 16:43 → EDHOLD 19:42
PROVIDERS: Emergency Medicine; Internal Medicine; ADMIT Internal Medicine; ATTEND Internal Medicine
PROC: 30233N1 Transfusion of Nonautologous Red Blood Cells into Peripheral Vein, Percutaneous Approach (ICD-10-PCS; principal; 2020-10-31)
DX: K55.21 Angiodysplasia of colon with hemorrhage (principal); E87.1 Hypo-osmolality and hyponatremia; E44.0 Moderate protein-calorie malnutrition; I77.4 Celiac artery compression syndrome; E87.8 Other disorders of electrolyte and fluid balance, not elsewhere classified; E55.9 Vitamin D deficiency, unspecified; E78.5 Hyperlipidemia, unspecified; I10 Essential (primary) hypertension; E03.9 Hypothyroidism, unspecified; M81.8 Other osteoporosis without current pathological fracture; I71.4 Abdominal aortic aneurysm, without rupture; G25.81 Restless legs syndrome; I25.10 Atherosclerotic heart disease of native coronary artery without angina pectoris; I87.2 Venous insufficiency (chronic) (peripheral); K21.9 Gastro-esophageal reflux disease without esophagitis; E11.40 Type 2 diabetes mellitus with diabetic neuropathy, unspecified; D72.819 Decreased white blood cell count, unspecified; I77.1 Stricture of artery; F17.210 Nicotine dependence, cigarettes, uncomplicated; E11.65 Type 2 diabetes mellitus with hyperglycemia; Z91.048 Other nonmedicinal substance allergy status; Z86.73 Personal history of transient ischemic attack (TIA), and cerebral infarction without residual deficits; Z98.42 Cataract extraction status, left eye; Z98.41 Cataract extraction status, right eye; Z90.710 Acquired absence of both cervix and uterus; Z90.49 Acquired absence of other specified parts of digestive tract; Z82.49 Family history of ischemic heart disease and other diseases of the circulatory system; Z80.52 Family history of malignant neoplasm of bladder; Z80.1 Family history of malignant neoplasm of trachea, bronchus and lung; Z82.5 Family history of asthma and other chronic lower respiratory diseases; Z83.3 Family history of diabetes mellitus; Z79.899 Other long term (current) drug therapy; Z79.02 Long term (current) use of antithrombotics/antiplatelets; Z68.23 Body mass index [BMI] 23.0-23.9, adult; D50.0 Iron deficiency anemia secondary to blood loss (chronic)

== ENCOUNTER 2020-11-13 16:51 | Inpatient (IN) | payer MEDICARE ==
[2020-11-13] VITALS (12 sets, daily range): BP systolic 64–127; BP diastolic 32–82
[~2020-11-13] VITALS: Ht 160 cm; Wt 60.4 kg
[2020-11-13 18:24] LABS: MEAN CORPUSCULAR HGB 28.8 pg (27.0-31.0); MEAN CORPUSCULAR HGB CONC 30.3 g/dl (33.0-37.0); MEAN PLATELET VOLUME 9.8 fl (9.6-12.3); PLATELET COUNT AUTOMATED 177 10*3/uL (130-400); RED BLOOD COUNT 1.84 10*6/uL (4.10-5.10); RED CELL DISTRI WIDTH 17.5 % (0-14.5); WHITE BLOOD COUNT 4.9 10*3/uL (4.8-10.8)
[2020-11-13 18:39] LABS: ALKALINE PHOSPHATASE 57 U/L (45-117); BUN 15 mg/dl (7-24); CHLORIDE 98 mmol/L (98-107); CREATININE 0.41 mg/dL (0.55-1.02); LIPASE 232 U/L (73-393); POTASSIUM 4.3 mmol/L (3.5-5.1); SGOT/AST 12 IU/L (3-35); SGPT/ALT 15 U/L (12-78); SODIUM 128 mmol/L (136-145); TOTAL PROTEIN 5.3 gm/dL (6.4-8.2); TROPONIN I < 0.015 ng/ml (<0.045)
[2020-11-13 18:47] LABS: MEAN CELL VOLUME 95.1 fl (81.0-99.0)
[2020-11-13 18:48] LABS: HEMATOCRIT 17.5 % (37.0-47.0)
[2020-11-13 18:50] LABS: POLYCHROMASIA SLIGHT; TOTAL CELLS COUNTED 100 #CELLS
[2020-11-13 18:51] LABS: MICROCYTOSIS SLIGHT; PLATELET SUFFICIENCY NORMAL (NORMAL)
[2020-11-14] VITALS (21 sets, daily range): BP systolic 74–130; BP diastolic 41–82
[2020-11-14 06:28] LABS: BASO % 0.3 % (0.0-1.0); EOS % 1.1 % (1.0-4.0); HEMATOCRIT 24.3 % (37.0-47.0); LYMPH # 0.6 10*3/uL (1.3-4.4); LYMPH % 16.3 % (27.0-41.0); MEAN CELL VOLUME 92.4 fl (81.0-99.0); MEAN CORPUSCULAR HGB 28.5 pg (27.0-31.0); MEAN CORPUSCULAR HGB CONC 30.9 g/dl (33.0-37.0); MEAN PLATELET VOLUME 9.8 fl (9.6-12.3); MONO # 0.2 10*3/uL (0.1-1.0); MONO % 6.5 % (3.0-9.0); NEUT # 2.8 10*3/uL (2.3-7.9); NEUT % 75.3 % (47.0-73.0); PLATELET COUNT AUTOMATED 154 10*3/uL (130-400); RED BLOOD COUNT 2.63 10*6/uL (4.10-5.10); RED CELL DISTRI WIDTH 17.3 % (0-14.5); WHITE BLOOD COUNT 3.7 10*3/uL (4.8-10.8)
[2020-11-14 06:34] LABS: ACT PARTIAL THROMBO TIME 24.6 SECONDS (20.0-32.1)
[2020-11-14 06:45] LABS: ALBUMIN 2.7 gm/dl (3.1-4.5); ALKALINE PHOSPHATASE 48 U/L (45-117); BUN 11 mg/dl (7-24); CHLORIDE 101 mmol/L (98-107); CREATININE 0.43 mg/dL (0.55-1.02); POTASSIUM 4.2 mmol/L (3.5-5.1); SGOT/AST 15 IU/L (3-35); SGPT/ALT 16 U/L (12-78); SODIUM 132 mmol/L (136-145); TOTAL PROTEIN 5.1 gm/dL (6.4-8.2)
[2020-11-14 16:20] LABS: BILIRUBIN Negative (Negative); BLOOD Trace-Lysed (Negative); CLARITY Clear (Clear); COLOR Yellow (Yellow); GLUCOSE Negative (Negative); KETONE Negative (Negative); LEUKO ESTERASE Negative (Negative); NITRITE Negative (Negative); PH 7.5 (4.5-8.0); SPECIFIC GRAVITY <= 1.005 (1.001-1.030)
[2020-11-14 16:45] LABS: BACTERIA 2+
[2020-11-14 18:14] LABS: BASO % 0.2 % (0.0-1.0); EOS # 0.1 10*3/uL (0.0-0.4); EOS % 1.2 % (1.0-4.0); HEMATOCRIT 30.9 % (37.0-47.0); LYMPH # 0.6 10*3/uL (1.3-4.4); LYMPH % 12.4 % (27.0-41.0); MEAN CELL VOLUME 93.4 fl (81.0-99.0); MEAN CORPUSCULAR HGB 28.7 pg (27.0-31.0); MEAN CORPUSCULAR HGB CONC 30.7 g/dl (33.0-37.0); MEAN PLATELET VOLUME 9.5 fl (9.6-12.3); MONO # 0.3 10*3/uL (0.1-1.0); MONO % 6.5 % (3.0-9.0); NEUT # 3.9 10*3/uL (2.3-7.9); NEUT % 79.3 % (47.0-73.0); NUCLEATED RED BLOOD CELL 0.4 % (0.0-0.0); PLATELET COUNT AUTOMATED 161 10*3/uL (130-400); RED BLOOD COUNT 3.31 10*6/uL (4.10-5.10); RED CELL DISTRI WIDTH 17.2 % (0-14.5); WHITE BLOOD COUNT 4.9 10*3/uL (4.8-10.8)
== END 2020-11-14 19:34 | disposition left against medical advice (07) | DRG 378 ==
LOC: ED 16:51 → EDHOLD 20:40 → 4E 20:40
PROVIDERS: Hospitalist; Nurse Practitioner Family; ADMIT Internal Medicine; ATTEND Internal Medicine
PROC: 30233N1 Transfusion of Nonautologous Red Blood Cells into Peripheral Vein, Percutaneous Approach (ICD-10-PCS; principal; 2020-11-13)
DX: K92.2 Gastrointestinal hemorrhage, unspecified (principal); E87.1 Hypo-osmolality and hyponatremia; E44.0 Moderate protein-calorie malnutrition; D64.9 Anemia, unspecified; K21.9 Gastro-esophageal reflux disease without esophagitis; K55.20 Angiodysplasia of colon without hemorrhage; E11.42 Type 2 diabetes mellitus with diabetic polyneuropathy; I25.10 Atherosclerotic heart disease of native coronary artery without angina pectoris; M81.0 Age-related osteoporosis without current pathological fracture; E11.65 Type 2 diabetes mellitus with hyperglycemia; E83.51 Hypocalcemia; E78.2 Mixed hyperlipidemia; I10 Essential (primary) hypertension; E03.9 Hypothyroidism, unspecified; G25.81 Restless legs syndrome; R00.1 Bradycardia, unspecified; E80.6 Other disorders of bilirubin metabolism; Z53.29 Procedure and treatment not carried out because of patient's decision for other reasons; Z88.8 Allergy status to other drugs, medicaments and biological substances; Z80.1 Family history of malignant neoplasm of trachea, bronchus and lung; Z82.5 Family history of asthma and other chronic lower respiratory diseases; Z98.42 Cataract extraction status, left eye; Z98.41 Cataract extraction status, right eye; Z90.49 Acquired absence of other specified parts of digestive tract; Z90.710 Acquired absence of both cervix and uterus; Z79.899 Other long term (current) drug therapy; Z82.3 Family history of stroke; Z68.23 Body mass index [BMI] 23.0-23.9, adult

== ENCOUNTER 2020-12-01 00:04 | Inpatient (IN) | payer MEDICARE ==
[2020-12-01] VITALS (29 sets, daily range): BP systolic 74–149; BP diastolic 41–67
[~2020-12-01] VITALS: Ht 160 cm; Wt 63.5 kg
[2020-12-01 00:42] LABS: BASO % 0.2 % (0.0-1.0); EOS % 0.5 % (1.0-4.0); LYMPH # 0.2 10*3/uL (1.3-4.4); LYMPH % 5.7 % (27.0-41.0); MEAN CELL VOLUME 95.7 fl (81.0-99.0); MEAN CORPUSCULAR HGB 27.7 pg (27.0-31.0); MEAN PLATELET VOLUME 9.7 fl (9.6-12.3); MONO # 0.2 10*3/uL (0.1-1.0); MONO % 5.7 % (3.0-9.0); NEUT # 3.7 10*3/uL (2.3-7.9); NEUT % 87.7 % (47.0-73.0); PLATELET COUNT AUTOMATED 197 10*3/uL (130-400); RED BLOOD COUNT 1.84 10*6/uL (4.10-5.10); RED CELL DISTRI WIDTH 15.9 % (0-14.5); WHITE BLOOD COUNT 4.2 10*3/uL (4.8-10.8)
[2020-12-01 00:57] LABS: BUN 16 mg/dl (7-24); CHLORIDE 90 mmol/L (98-107); CREATININE 0.47 mg/dL (0.55-1.02); POTASSIUM 4.1 mmol/L (3.5-5.1); SODIUM 123 mmol/L (136-145)
[2020-12-01 00:58] LABS: HEMATOCRIT 17.6 % (37.0-47.0)
[2020-12-01 01:03] LABS: OVALOCYTES FEW; PLATELET SUFFICIENCY NORMAL (NORMAL); TOTAL CELLS COUNTED 100 #CELLS
[2020-12-01 12:45] LABS: BASO % 0.2 % (0.0-1.0)
[2020-12-01 12:48] LABS: EOS % 0.5 % (1.0-4.0); HEMATOCRIT 29.3 % (37.0-47.0); LYMPH # 0.5 10*3/uL (1.3-4.4); LYMPH % 8.5 % (27.0-41.0); MEAN CORPUSCULAR HGB 29.5 pg (27.0-31.0); MEAN CORPUSCULAR HGB CONC 31.7 g/dl (33.0-37.0); MEAN PLATELET VOLUME 9.1 fl (9.6-12.3); MONO # 0.3 10*3/uL (0.1-1.0); MONO % 5.3 % (3.0-9.0); PLATELET COUNT AUTOMATED 172 10*3/uL (130-400); RED BLOOD COUNT 3.15 10*6/uL (4.10-5.10); RED CELL DISTRI WIDTH 15.1 % (0-14.5); WHITE BLOOD COUNT 5.9 10*3/uL (4.8-10.8)
[2020-12-01 13:02] LABS: ALKALINE PHOSPHATASE 53 U/L (45-117); BUN 13 mg/dl (7-24); CHLORIDE 96 mmol/L (98-107); CREATININE 0.51 mg/dL (0.55-1.02); POTASSIUM 3.7 mmol/L (3.5-5.1); SGOT/AST 15 IU/L (3-35); SGPT/ALT 15 U/L (12-78); SODIUM 128 mmol/L (136-145); TOTAL PROTEIN 5.4 gm/dL (6.4-8.2)
== END 2020-12-01 13:33 | disposition left against medical advice (07) | DRG 378 ==
LOC: ED 00:04 → EDHOLD 01:21
PROVIDERS: Internal Medicine; ADMIT Family Medicine; ATTEND Family Medicine
PROC: 30233N1 Transfusion of Nonautologous Red Blood Cells into Peripheral Vein, Percutaneous Approach (ICD-10-PCS; principal; 2020-12-01)
DX: K92.2 Gastrointestinal hemorrhage, unspecified (principal); E87.1 Hypo-osmolality and hyponatremia; K21.9 Gastro-esophageal reflux disease without esophagitis; D64.9 Anemia, unspecified; E55.9 Vitamin D deficiency, unspecified; E11.42 Type 2 diabetes mellitus with diabetic polyneuropathy; F17.210 Nicotine dependence, cigarettes, uncomplicated; E11.65 Type 2 diabetes mellitus with hyperglycemia; I95.89 Other hypotension; E78.5 Hyperlipidemia, unspecified; I10 Essential (primary) hypertension; E86.1 Hypovolemia; M81.0 Age-related osteoporosis without current pathological fracture; I25.10 Atherosclerotic heart disease of native coronary artery without angina pectoris; Z82.49 Family history of ischemic heart disease and other diseases of the circulatory system; Z80.3 Family history of malignant neoplasm of breast; Z82.5 Family history of asthma and other chronic lower respiratory diseases; Z88.8 Allergy status to other drugs, medicaments and biological substances; Z79.899 Other long term (current) drug therapy; Z90.710 Acquired absence of both cervix and uterus; Z86.73 Personal history of transient ischemic attack (TIA), and cerebral infarction without residual deficits; Z90.49 Acquired absence of other specified parts of digestive tract; Z98.42 Cataract extraction status, left eye; Z98.41 Cataract extraction status, right eye; Z80.1 Family history of malignant neoplasm of trachea, bronchus and lung

== ENCOUNTER → 2020-12-15 | Outpatient (CLI) | payer MEDICARE ==
[2020-12-15] VITALS (8 sets, daily range): BP systolic 88–116; BP diastolic 42–71
[~2020-12-15] MED LIST changes: +ASPIRIN CHEWABL81 MG PO; +DULCOLAX STOOL100 M1 PO; +LEVOTHYROXINE150 MCG PO; +MIDODRINE HCL5 M1 PO
== END | disposition home or self-care (01) ==
LOC: TRNFUSION 12-14 14:30
PROVIDERS: ATTEND Physician Assistant
DX: D50.9 Iron deficiency anemia, unspecified (principal); I10 Essential (primary) hypertension; M19.90 Unspecified osteoarthritis, unspecified site; E11.9 Type 2 diabetes mellitus without complications; K21.9 Gastro-esophageal reflux disease without esophagitis; F32.9 Major depressive disorder, single episode, unspecified; E78.00 Pure hypercholesterolemia, unspecified; F41.9 Anxiety disorder, unspecified; Z87.891 Personal history of nicotine dependence

== ENCOUNTER 2021-01-07 08:48 | Emergency (ER) | payer MEDICARE ==
[2021-01-07] VITALS (12 sets, daily range): BP systolic 80–124; BP diastolic 38–61
[2021-01-07 09:33] LABS: ALBUMIN 2.9 gm/dl (3.1-4.5); ALKALINE PHOSPHATASE 52 U/L (45-117); BUN 30 mg/dl (7-24); CHLORIDE 102 mmol/L (98-107); CREATININE 0.48 mg/dL (0.55-1.02); POTASSIUM 3.6 mmol/L (3.5-5.1); SGOT/AST 61 IU/L (3-35); SGPT/ALT 27 U/L (12-78); SODIUM 136 mmol/L (136-145); TOTAL PROTEIN 5.6 gm/dL (6.4-8.2)
[2021-01-07 16:56] LABS: BASO % 0.2 % (0.0-1.0); EOS % 0.8 % (1.0-4.0); HEMATOCRIT 30.1 % (37.0-47.0); LYMPH # 0.4 10*3/uL (1.3-4.4); LYMPH % 8.2 % (27.0-41.0); MEAN CORPUSCULAR HGB 30.2 pg (27.0-31.0); MEAN CORPUSCULAR HGB CONC 31.2 g/dl (33.0-37.0); MEAN PLATELET VOLUME 9.2 fl (9.6-12.3); MONO # 0.4 10*3/uL (0.1-1.0); NEUT # 4.3 10*3/uL (2.3-7.9); NEUT % 83.2 % (47.0-73.0); NUCLEATED RED BLOOD CELL 0.6 % (0.0-0.0); PLATELET COUNT AUTOMATED 169 10*3/uL (130-400); RED BLOOD COUNT 3.11 10*6/uL (4.10-5.10); RED CELL DISTRI WIDTH 17.5 % (0-14.5); WHITE BLOOD COUNT 5.2 10*3/uL (4.8-10.8)
[2021-01-07 17:07] LABS: MEAN CELL VOLUME 96.8 fl (81.0-99.0)
== END 2021-01-07 17:57 ==
LOC: ED 08:48
PROVIDERS: Emergency Medicine
DX: D50.0 Iron deficiency anemia secondary to blood loss (chronic) (principal); I95.9 Hypotension, unspecified; I25.10 Atherosclerotic heart disease of native coronary artery without angina pectoris; E11.40 Type 2 diabetes mellitus with diabetic neuropathy, unspecified; I10 Essential (primary) hypertension; K21.9 Gastro-esophageal reflux disease without esophagitis; E78.5 Hyperlipidemia, unspecified; E03.9 Hypothyroidism, unspecified; M81.0 Age-related osteoporosis without current pathological fracture; E11.51 Type 2 diabetes mellitus with diabetic peripheral angiopathy without gangrene; F17.200 Nicotine dependence, unspecified, uncomplicated; Z91.048 Other nonmedicinal substance allergy status; Z79.899 Other long term (current) drug therapy; Z79.82 Long term (current) use of aspirin; Z86.73 Personal history of transient ischemic attack (TIA), and cerebral infarction without residual deficits; Z90.49 Acquired absence of other specified parts of digestive tract; Z90.711 Acquired absence of uterus with remaining cervical stump; Z90.89 Acquired absence of other organs; Z95.0 Presence of cardiac pacemaker

== ENCOUNTER → 2021-01-16 | Outpatient (CLI) | payer MEDICARE ==
[2021-01-16 09:07] VITALS: BP 64/37
[2021-01-16 09:37] VITALS: BP 76/46
[2021-01-16 10:37] VITALS: BP 88/58
[2021-01-16 11:20] VITALS: BP 91/58
== END | disposition home or self-care (01) ==
LOC: TRNFUSION 01:07
PROVIDERS: ATTEND Internal Medicine
DX: D64.9 Anemia, unspecified (principal); I10 Essential (primary) hypertension; M19.90 Unspecified osteoarthritis, unspecified site; K21.9 Gastro-esophageal reflux disease without esophagitis; E11.9 Type 2 diabetes mellitus without complications; F32.9 Major depressive disorder, single episode, unspecified; E78.00 Pure hypercholesterolemia, unspecified; F41.9 Anxiety disorder, unspecified; F17.200 Nicotine dependence, unspecified, uncomplicated; Z86.73 Personal history of transient ischemic attack (TIA), and cerebral infarction without residual deficits

== ENCOUNTER 2021-01-19 14:06 | Emergency (ER) | payer MEDICARE ==
[2021-01-19] VITALS (9 sets, daily range): BP systolic 93–114; BP diastolic 49–61
== END 2021-01-19 22:23 ==
LOC: ED 14:06
DX: K92.2 Gastrointestinal hemorrhage, unspecified (principal); D64.9 Anemia, unspecified

== ENCOUNTER 2021-01-25 14:53 | Emergency (ER) | payer MEDICARE ==
[2021-01-25] VITALS (13 sets, daily range): BP systolic 80–120; BP diastolic 47–65
[~2021-01-25] VITALS: Ht 160 cm; Wt 60.3 kg
== END 2021-01-26 00:22 ==
LOC: ED 14:53
DX: K92.2 Gastrointestinal hemorrhage, unspecified (principal); D64.9 Anemia, unspecified

== ENCOUNTER → 2021-01-30 | Outpatient (CLI) | payer MEDICARE ==
[2021-01-30] VITALS (9 sets, daily range): BP systolic 63–89; BP diastolic 41–62
== END | disposition home or self-care (01) ==
LOC: TRNFUSION 10:36
PROVIDERS: ATTEND Internal Medicine
DX: D64.9 Anemia, unspecified (principal); I10 Essential (primary) hypertension; M19.90 Unspecified osteoarthritis, unspecified site; E11.9 Type 2 diabetes mellitus without complications; K21.9 Gastro-esophageal reflux disease without esophagitis; F32.9 Major depressive disorder, single episode, unspecified; E78.00 Pure hypercholesterolemia, unspecified; F41.9 Anxiety disorder, unspecified; Z86.73 Personal history of transient ischemic attack (TIA), and cerebral infarction without residual deficits

== ENCOUNTER 2021-02-03 10:58 | Emergency (ER) | payer MEDICARE ==
[2021-02-03] VITALS (12 sets, daily range): BP systolic 80–104; BP diastolic 41–63
[~2021-02-03] VITALS: Wt 60.8 kg
[2021-02-03 11:29] LABS: HEMATOCRIT 21.3 % (37.0-47.0); MEAN CORPUSCULAR HGB 27.4 pg (27.0-31.0); MEAN PLATELET VOLUME 9.5 fl (9.6-12.3); PLATELET COUNT AUTOMATED 274 10*3/uL (130-400); RED BLOOD COUNT 2.34 10*6/uL (4.10-5.10); RED CELL DISTRI WIDTH 16.2 % (0-14.5); WHITE BLOOD COUNT 5.7 10*3/uL (4.8-10.8)
[2021-02-03 11:56] LABS: TOTAL CELLS COUNTED 100 #CELLS
[2021-02-03 11:57] LABS: PLATELET SUFFICIENCY NORMAL (NORMAL); POLYCHROMASIA SLIGHT
== END 2021-02-03 18:47 ==
LOC: ED 10:58
PROVIDERS: Student in an Organized Health Care Education/Training Program
DX: D64.9 Anemia, unspecified (principal); F17.200 Nicotine dependence, unspecified, uncomplicated; Z79.899 Other long term (current) drug therapy; Z79.82 Long term (current) use of aspirin

== ENCOUNTER → 2021-02-07 | Outpatient (CLI) | payer MEDICARE ==
[2021-02-07 08:45] VITALS: BP 63/34
[2021-02-07 09:20] VITALS: BP 57/34
[2021-02-07 10:20] VITALS: BP 83/50
[2021-02-07 11:25] VITALS: BP 79/58
== END | disposition home or self-care (01) ==
LOC: TRNFUSION 00:25
PROVIDERS: ATTEND Internal Medicine
DX: D64.9 Anemia, unspecified (principal); I10 Essential (primary) hypertension; E11.9 Type 2 diabetes mellitus without complications; K21.9 Gastro-esophageal reflux disease without esophagitis; F32.9 Major depressive disorder, single episode, unspecified; M19.90 Unspecified osteoarthritis, unspecified site; F41.9 Anxiety disorder, unspecified; E78.00 Pure hypercholesterolemia, unspecified; F17.200 Nicotine dependence, unspecified, uncomplicated; Z86.73 Personal history of transient ischemic attack (TIA), and cerebral infarction without residual deficits

== ENCOUNTER 2021-02-08 11:49 | Emergency (ER) | payer MEDICARE ==
[2021-02-08] VITALS (11 sets, daily range): BP systolic 79–104; BP diastolic 45–66
[~2021-02-08] VITALS: Wt 61.2 kg
== END 2021-02-08 20:20 | disposition home or self-care (01) ==
LOC: ED 11:49
DX: I95.9 Hypotension, unspecified (principal); D64.9 Anemia, unspecified; Z79.899 Other long term (current) drug therapy; Z79.82 Long term (current) use of aspirin; F17.200 Nicotine dependence, unspecified, uncomplicated

== ENCOUNTER → 2021-02-13 | Outpatient (CLI) | payer MEDICARE ==
[2021-02-13] VITALS (16 sets, daily range): BP systolic 59–128; BP diastolic 35–90
== END | disposition home or self-care (01) ==
LOC: TRNFUSION 10:10
PROVIDERS: ATTEND Internal Medicine
DX: D64.9 Anemia, unspecified (principal)

== ENCOUNTER → 2021-02-21 | Outpatient (CLI) | payer MEDICARE ==
[2021-02-21] VITALS (7 sets, daily range): BP systolic 71–142; BP diastolic 42–68
== END | disposition home or self-care (01) ==
LOC: TRNFUSION 07:04
PROVIDERS: ATTEND Internal Medicine
DX: D64.9 Anemia, unspecified (principal); I10 Essential (primary) hypertension; M19.90 Unspecified osteoarthritis, unspecified site; E11.9 Type 2 diabetes mellitus without complications; F32.9 Major depressive disorder, single episode, unspecified; K21.9 Gastro-esophageal reflux disease without esophagitis; E78.00 Pure hypercholesterolemia, unspecified; F41.9 Anxiety disorder, unspecified; Z86.73 Personal history of transient ischemic attack (TIA), and cerebral infarction without residual deficits; Z87.891 Personal history of nicotine dependence

== ENCOUNTER → 2021-02-22 | Outpatient (CLI) | payer MEDICARE ==
[2021-02-22 12:05] VITALS: BP 71/51
[2021-02-22 13:38] VITALS: BP 82/52
[2021-02-22 14:12] VITALS: BP 99/54
[2021-02-22 15:00] VITALS: BP 103/59
[2021-02-22 15:47] VITALS: BP 98/60
[2021-02-22 16:15] VITALS: BP 113/55
== END | disposition home or self-care (01) ==
LOC: TRNFUSION 11:54
PROVIDERS: ATTEND Student in an Organized Health Care Education/Training Program
DX: D64.9 Anemia, unspecified (principal); K21.9 Gastro-esophageal reflux disease without esophagitis; F33.9 Major depressive disorder, recurrent, unspecified; I10 Essential (primary) hypertension; E78.5 Hyperlipidemia, unspecified; E46 Unspecified protein-calorie malnutrition; Z95.0 Presence of cardiac pacemaker

== ENCOUNTER → 2021-02-27 | Outpatient (CLI) | payer MEDICARE ==
[2021-02-27 06:56] LABS: MEAN CELL VOLUME 93.6 fl (81.0-99.0); MEAN CORPUSCULAR HGB CONC 29.9 g/dl (33.0-37.0); MEAN PLATELET VOLUME 9.4 fl (9.6-12.3); RED BLOOD COUNT 2.18 10*6/uL (4.10-5.10); RED CELL DISTRI WIDTH 18.6 % (0-14.5); WHITE BLOOD COUNT 3.7 10*3/uL (4.8-10.8)
[2021-02-27 07:04] LABS: HEMATOCRIT 20.4 % (37.0-47.0)
[2021-02-27 08:55] VITALS: BP 127/98
[2021-02-27 09:26] VITALS: BP 122/96
[2021-02-27 10:23] VITALS: BP 100/58
[2021-02-27 11:12] VITALS: BP 88/54
[2021-02-27 11:42] VITALS: BP 96/54
[2021-03-01 12:57] VITALS: BP 98/61
[2021-03-01 13:29] VITALS: BP 80/47
[2021-03-01 14:01] VITALS: BP 84/44
[2021-03-01 14:30] VITALS: BP 97/65
[2021-03-01 15:06] VITALS: BP 95/55
[2021-03-01 15:36] VITALS: BP 98/54
== END | disposition home or self-care (01) ==
LOC: TRNFUSION 00:01
PROVIDERS: ATTEND Internal Medicine
DX: D64.9 Anemia, unspecified (principal); D72.819 Decreased white blood cell count, unspecified; E87.1 Hypo-osmolality and hyponatremia; E78.5 Hyperlipidemia, unspecified

== ENCOUNTER → 2021-03-01 | Outpatient (CLI) | payer MEDICARE ==
[2021-03-01 12:33] VITALS: BP 96/51
[2021-03-01 17:00] LABS: EOS % 1.1 % (1.0-4.0); HEMATOCRIT 26.4 % (37.0-47.0); LYMPH # 0.6 10*3/uL (1.3-4.4); LYMPH % 16.4 % (27.0-41.0); MEAN CELL VOLUME 94.3 fl (81.0-99.0); MEAN CORPUSCULAR HGB 28.9 pg (27.0-31.0); MEAN CORPUSCULAR HGB CONC 30.7 g/dl (33.0-37.0); MEAN PLATELET VOLUME 9.6 fl (9.6-12.3); MONO # 0.2 10*3/uL (0.1-1.0); MONO % 4.2 % (3.0-9.0); NEUT # 2.8 10*3/uL (2.3-7.9); NEUT % 77.7 % (47.0-73.0); PLATELET COUNT AUTOMATED 203 10*3/uL (130-400); RED CELL DISTRI WIDTH 17.7 % (0-14.5); WHITE BLOOD COUNT 3.6 10*3/uL (4.8-10.8)
== END | disposition home or self-care (01) ==
LOC: TRNFUSION 11:53
PROVIDERS: ATTEND Family Medicine
DX: D64.9 Anemia, unspecified (principal)

== ENCOUNTER → 2021-03-03 | Outpatient (CLI) | payer MEDICARE ==
[2021-03-03 12:28] VITALS: BP 100/60
[2021-03-03 12:59] VITALS: BP 88/54
[2021-03-03 13:58] VITALS: BP 87/53
[2021-03-03 14:58] VITALS: BP 82/46
[2021-03-03 16:17] VITALS: BP 88/44
[2021-03-03 16:47] VITALS: BP 86/48
== END ==
LOC: TRNFUSION 10:00
PROVIDERS: ATTEND Family Medicine
DX: D64.9 Anemia, unspecified (principal)

== ENCOUNTER 2021-03-10 09:55 | Emergency (ER) | payer MEDICARE ==
[~2021-03-10] VITALS: Ht 160 cm; Wt 57.6 kg
[2021-03-10 13:27] VITALS: BP 81/45
== END 2021-03-10 13:59 ==
LOC: ED 09:55
DX: K92.2 Gastrointestinal hemorrhage, unspecified (principal); D64.9 Anemia, unspecified; I95.9 Hypotension, unspecified

== ENCOUNTER → 2021-03-12 | Outpatient (CLI) | payer MEDICARE ==
[2021-03-12 12:07] VITALS: BP 77/52
[2021-03-12 12:45] VITALS: BP 79/44
[2021-03-12 13:45] VITALS: BP 89/50
[2021-03-12 14:10] VITALS: BP 80/42
[2021-03-12 14:40] VITALS: BP 83/47
== END | disposition home or self-care (01) ==
LOC: TRNFUSION 10:00
PROVIDERS: ATTEND Internal Medicine
DX: D64.9 Anemia, unspecified (principal); I10 Essential (primary) hypertension; E11.9 Type 2 diabetes mellitus without complications; M19.90 Unspecified osteoarthritis, unspecified site; K21.9 Gastro-esophageal reflux disease without esophagitis; F32.A Depression, unspecified; F41.9 Anxiety disorder, unspecified; E78.00 Pure hypercholesterolemia, unspecified; Z86.73 Personal history of transient ischemic attack (TIA), and cerebral infarction without residual deficits; Z87.891 Personal history of nicotine dependence

== ENCOUNTER → 2021-03-16 | Outpatient (CLI) | payer MEDICARE ==
[2021-03-16 08:52] VITALS: BP 82/51
[2021-03-16 09:17] VITALS: BP 78/42
[2021-03-16 09:32] VITALS: BP 81/39
[2021-03-16 10:17] VITALS: BP 89/66
[2021-03-16 11:17] VITALS: BP 94/53
[2021-03-16 11:50] VITALS: BP 87/50
== END ==
LOC: TRNFUSION 02:05
PROVIDERS: ATTEND Internal Medicine
DX: D62 Acute posthemorrhagic anemia (principal)

== ENCOUNTER 2021-03-18 10:34 | Emergency (ER) | payer MEDICARE ==
[2021-03-19] VITALS (13 sets, daily range): BP systolic 65–112; BP diastolic 24–52
== END 2021-03-18 16:50 ==
LOC: ED 10:34
DX: K92.2 Gastrointestinal hemorrhage, unspecified (principal); D64.9 Anemia, unspecified; I95.9 Hypotension, unspecified; I25.10 Atherosclerotic heart disease of native coronary artery without angina pectoris; K21.9 Gastro-esophageal reflux disease without esophagitis; E78.5 Hyperlipidemia, unspecified; E03.9 Hypothyroidism, unspecified; E11.9 Type 2 diabetes mellitus without complications; F17.200 Nicotine dependence, unspecified, uncomplicated; Z79.899 Other long term (current) drug therapy; Z79.82 Long term (current) use of aspirin

== ENCOUNTER 2021-03-19 11:20 | Emergency (ER) | payer MEDICARE ==
[~2021-03-19] VITALS: Ht 160 cm; Wt 57.6 kg
[2021-03-19 16:32] VITALS: BP 84/52
== END 2021-03-19 17:10 ==
LOC: ED 11:20
DX: U07.1 COVID-19 (principal); K92.2 Gastrointestinal hemorrhage, unspecified; D64.9 Anemia, unspecified; I95.9 Hypotension, unspecified; Z79.899 Other long term (current) drug therapy; Z79.82 Long term (current) use of aspirin; I25.10 Atherosclerotic heart disease of native coronary artery without angina pectoris; K21.9 Gastro-esophageal reflux disease without esophagitis; E78.5 Hyperlipidemia, unspecified; I10 Essential (primary) hypertension; E03.9 Hypothyroidism, unspecified; E11.9 Type 2 diabetes mellitus without complications; F17.200 Nicotine dependence, unspecified, uncomplicated

== ENCOUNTER 2021-03-23 11:59 | Emergency (ER) | payer MEDICARE ==
[~2021-03-23] VITALS: Ht 160 cm; Wt 58.1 kg
[2021-03-23 20:01] VITALS: BP 105/57
== END 2021-03-23 20:56 | disposition home or self-care (01) ==
LOC: ED 11:59
DX: U07.1 COVID-19 (principal); D64.9 Anemia, unspecified

== ENCOUNTER → 2021-03-23 | Outpatient (CLI) | payer MEDICARE ==
[2021-03-23] VITALS (10 sets, daily range): BP systolic 68–101; BP diastolic 37–67
== END | disposition home or self-care (01) ==
LOC: TRNFUSION 05:55
PROVIDERS: ATTEND Internal Medicine
DX: D64.9 Anemia, unspecified (principal)

== ENCOUNTER 2021-03-27 22:24 | Emergency (ER) | payer MEDICARE ==
[2021-03-27 23:03] LABS: HEMATOCRIT 27.1 % (37.0-47.0); LYMPH # 0.6 10*3/uL (1.3-4.4); LYMPH % 19.6 % (27.0-41.0); MEAN CELL VOLUME 90.6 fl (81.0-99.0); MEAN CORPUSCULAR HGB 28.1 pg (27.0-31.0); MEAN PLATELET VOLUME 9.4 fl (9.6-12.3); MONO # 0.1 10*3/uL (0.1-1.0); MONO % 4.9 % (3.0-9.0); NEUT # 2.1 10*3/uL (2.3-7.9); NEUT % 74.8 % (47.0-73.0); PLATELET COUNT AUTOMATED 174 10*3/uL (130-400); RED BLOOD COUNT 2.99 10*6/uL (4.10-5.10); RED CELL DISTRI WIDTH 16.8 % (0-14.5); WHITE BLOOD COUNT 2.9 10*3/uL (4.8-10.8)
[2021-03-27 23:18] LABS: ALBUMIN 2.4 gm/dl (3.1-4.5); ALKALINE PHOSPHATASE 80 U/L (45-117); BUN 14 mg/dl (7-24); CHLORIDE 103 mmol/L (98-107); CREATININE 0.41 mg/dL (0.55-1.02); POTASSIUM 4.1 mmol/L (3.5-5.1); SGOT/AST 33 IU/L (3-35); SGPT/ALT 47 U/L (12-78); SODIUM 135 mmol/L (136-145); TOTAL PROTEIN 5.2 gm/dL (6.4-8.2)
[2021-03-28 00:11] VITALS: BP 103/58
== END 2021-03-28 00:41 ==
LOC: ED 22:24
PROVIDERS: Internal Medicine
DX: U07.1 COVID-19 (principal); D72.829 Elevated white blood cell count, unspecified; D64.9 Anemia, unspecified; E44.0 Moderate protein-calorie malnutrition; R40.4 Transient alteration of awareness; F17.200 Nicotine dependence, unspecified, uncomplicated; Z79.899 Other long term (current) drug therapy; Z79.82 Long term (current) use of aspirin

== ENCOUNTER 2021-04-05 09:49 | Emergency (ER) | payer MEDICARE ==
[2021-04-05] VITALS (7 sets, daily range): BP systolic 81–93; BP diastolic 41–56
== END 2021-04-05 15:45 ==
LOC: ED 09:49
DX: K92.2 Gastrointestinal hemorrhage, unspecified (principal); D64.9 Anemia, unspecified; I95.9 Hypotension, unspecified; I25.10 Atherosclerotic heart disease of native coronary artery without angina pectoris; I10 Essential (primary) hypertension; K21.9 Gastro-esophageal reflux disease without esophagitis; E78.5 Hyperlipidemia, unspecified; E03.9 Hypothyroidism, unspecified; E11.9 Type 2 diabetes mellitus without complications; Z79.899 Other long term (current) drug therapy; Z79.82 Long term (current) use of aspirin; Z87.891 Personal history of nicotine dependence

== ENCOUNTER 2021-04-19 10:46 | Emergency (ER) | payer MEDICARE ==
[2021-04-19] VITALS (9 sets, daily range): BP systolic 82–108; BP diastolic 43–75
[~2021-04-19] VITALS: Ht 160 cm; Wt 50.3 kg
== END 2021-04-19 19:03 ==
LOC: ED 10:46
DX: D64.9 Anemia, unspecified (principal); I10 Essential (primary) hypertension; M19.90 Unspecified osteoarthritis, unspecified site; E11.9 Type 2 diabetes mellitus without complications; K21.9 Gastro-esophageal reflux disease without esophagitis; F17.200 Nicotine dependence, unspecified, uncomplicated; Z86.73 Personal history of transient ischemic attack (TIA), and cerebral infarction without residual deficits; Z90.710 Acquired absence of both cervix and uterus; Z98.890 Other specified postprocedural states; Z90.49 Acquired absence of other specified parts of digestive tract; Z79.899 Other long term (current) drug therapy; Z79.82 Long term (current) use of aspirin

== ENCOUNTER 2021-04-23 12:41 | Emergency (ER) | payer MEDICARE ==
[~2021-04-23] VITALS: Ht 160 cm; Wt 52.6 kg
[2021-04-23 16:29] VITALS: BP 79/43
[2021-04-23 16:45] VITALS: BP 83/45
[2021-04-23 17:00] VITALS: BP 87/50
[2021-04-23 17:15] VITALS: BP 95/55
[2021-04-23 18:00] VITALS: BP 92/62
[2021-04-23 18:36] VITALS: BP 103/62
== END 2021-04-23 19:00 ==
LOC: ED 12:41
DX: D64.9 Anemia, unspecified (principal); Z79.899 Other long term (current) drug therapy; Z79.82 Long term (current) use of aspirin; Z98.890 Other specified postprocedural states; Z90.49 Acquired absence of other specified parts of digestive tract; Z87.891 Personal history of nicotine dependence

== ENCOUNTER → 2021-05-01 | Outpatient (CLI) | payer MEDICARE ==
[2021-05-01 09:12] VITALS: BP 70/35
[2021-05-01 09:40] VITALS: BP 98/51
[2021-05-01 10:00] VITALS: BP 77/58
[2021-05-01 10:25] VITALS: BP 77/46
[2021-05-01 11:25] VITALS: BP 85/41
[2021-05-01 11:55] VITALS: BP 83/41
== END | disposition home or self-care (01) ==
LOC: TRNFUSION 00:15
PROVIDERS: ATTEND Internal Medicine
DX: D64.9 Anemia, unspecified (principal); I10 Essential (primary) hypertension; M19.90 Unspecified osteoarthritis, unspecified site; K21.9 Gastro-esophageal reflux disease without esophagitis; E11.9 Type 2 diabetes mellitus without complications; E78.00 Pure hypercholesterolemia, unspecified; Z86.73 Personal history of transient ischemic attack (TIA), and cerebral infarction without residual deficits; Z87.891 Personal history of nicotine dependence

== ENCOUNTER → 2021-05-04 | Outpatient (CLI) | payer MEDICARE ==
[2021-05-04 09:04] VITALS: BP 68/38
[2021-05-04 09:48] VITALS: BP 82/46
[2021-05-04 10:39] VITALS: BP 95/60
[2021-05-04 11:20] VITALS: BP 102/47
[2021-05-04 11:50] VITALS: BP 92/47
== END | disposition home or self-care (01) ==
LOC: TRNFUSION 00:57
PROVIDERS: ATTEND Internal Medicine
DX: D64.9 Anemia, unspecified (principal); Z87.891 Personal history of nicotine dependence; I10 Essential (primary) hypertension; E11.9 Type 2 diabetes mellitus without complications; K21.9 Gastro-esophageal reflux disease without esophagitis; F32.9 Major depressive disorder, single episode, unspecified; F41.9 Anxiety disorder, unspecified; M19.90 Unspecified osteoarthritis, unspecified site; Z86.73 Personal history of transient ischemic attack (TIA), and cerebral infarction without residual deficits

== ENCOUNTER → 2021-05-11 | Outpatient (CLI) | payer MEDICARE ==
[2021-05-11 08:55] VITALS: BP 86/42
[2021-05-11 09:09] VITALS: BP 86/45
[2021-05-11 09:24] VITALS: BP 88/54
[2021-05-11 10:24] VITALS: BP 86/51
[2021-05-11 11:00] VITALS: BP 77/49
[2021-05-11 11:30] VITALS: BP 76/51
== END | disposition home or self-care (01) ==
LOC: TRNFUSION 00:41
PROVIDERS: ATTEND Student in an Organized Health Care Education/Training Program
DX: D64.9 Anemia, unspecified (principal); I10 Essential (primary) hypertension; E11.9 Type 2 diabetes mellitus without complications; K21.9 Gastro-esophageal reflux disease without esophagitis; F32.9 Major depressive disorder, single episode, unspecified; M19.90 Unspecified osteoarthritis, unspecified site; F17.210 Nicotine dependence, cigarettes, uncomplicated; F41.9 Anxiety disorder, unspecified

== ENCOUNTER → 2021-05-17 | Outpatient (CLI) | payer MEDICARE ==
[2021-05-18 08:57] VITALS: BP 64/37
[2021-05-18 09:27] VITALS: BP 62/37
[2021-05-18 10:12] VITALS: BP 73/40
[2021-05-18 11:12] VITALS: BP 77/42
[2021-05-18 11:35] VITALS: BP 84/42
== END | disposition home or self-care (01) ==
LOC: TRNFUSION 14:37
PROVIDERS: ATTEND Internal Medicine
DX: D64.9 Anemia, unspecified (principal); I10 Essential (primary) hypertension; E11.9 Type 2 diabetes mellitus without complications; E78.00 Pure hypercholesterolemia, unspecified; K21.9 Gastro-esophageal reflux disease without esophagitis; M19.90 Unspecified osteoarthritis, unspecified site; F17.200 Nicotine dependence, unspecified, uncomplicated; Z86.73 Personal history of transient ischemic attack (TIA), and cerebral infarction without residual deficits; Z95.0 Presence of cardiac pacemaker

== ENCOUNTER → 2021-05-29 | Outpatient (CLI) | payer MEDICARE ==
[2021-05-29 08:25] VITALS: BP 114/69
[2021-05-29 08:36] VITALS: BP 92/51
[2021-05-29 08:51] VITALS: BP 88/42
[2021-05-29 09:06] VITALS: BP 98/44
[2021-05-29 10:38] VITALS: BP 89/41
[2021-05-29 11:08] VITALS: BP 90/47
== END | disposition home or self-care (01) ==
LOC: TRNFUSION 02:03
PROVIDERS: ATTEND Hospitalist
DX: D64.9 Anemia, unspecified (principal); I10 Essential (primary) hypertension; E11.9 Type 2 diabetes mellitus without complications; M19.90 Unspecified osteoarthritis, unspecified site; K21.9 Gastro-esophageal reflux disease without esophagitis; E78.00 Pure hypercholesterolemia, unspecified; F17.200 Nicotine dependence, unspecified, uncomplicated; Z86.73 Personal history of transient ischemic attack (TIA), and cerebral infarction without residual deficits

== ENCOUNTER → 2021-06-01 | Outpatient (CLI) | payer MEDICARE ==
[2021-06-01 09:02] VITALS: BP 72/32
[2021-06-01 09:48] VITALS: BP 78/54
[2021-06-01 10:48] VITALS: BP 108/48
[2021-06-01 11:40] VITALS: BP 106/48
[2021-06-01 12:00] VITALS: BP 90/58
== END | disposition home or self-care (01) ==
LOC: TRNFUSION 00:42
PROVIDERS: ATTEND Internal Medicine
DX: D64.9 Anemia, unspecified (principal); I10 Essential (primary) hypertension; E11.9 Type 2 diabetes mellitus without complications; K21.9 Gastro-esophageal reflux disease without esophagitis; M19.90 Unspecified osteoarthritis, unspecified site; E78.00 Pure hypercholesterolemia, unspecified; F17.200 Nicotine dependence, unspecified, uncomplicated; Z86.73 Personal history of transient ischemic attack (TIA), and cerebral infarction without residual deficits

== ENCOUNTER → 2021-06-15 | Outpatient (CLI) | payer MEDICARE ==
[2021-06-15 08:47] VITALS: BP 83/38
[2021-06-15 09:25] VITALS: BP 80/40
[2021-06-15 09:40] VITALS: BP 78/41
[2021-06-15 10:10] VITALS: BP 94/39
[2021-06-15 10:40] VITALS: BP 95/48
[2021-06-15 11:35] VITALS: BP 87/44
== END | disposition home or self-care (01) ==
LOC: TRNFUSION 01:25
PROVIDERS: ATTEND Internal Medicine
DX: D64.9 Anemia, unspecified (principal); I10 Essential (primary) hypertension; E11.9 Type 2 diabetes mellitus without complications; M19.90 Unspecified osteoarthritis, unspecified site; K21.9 Gastro-esophageal reflux disease without esophagitis; E78.00 Pure hypercholesterolemia, unspecified; F17.200 Nicotine dependence, unspecified, uncomplicated; Z86.73 Personal history of transient ischemic attack (TIA), and cerebral infarction without residual deficits

== ENCOUNTER → 2021-06-21 | Outpatient (CLI) | payer MEDICARE | END | disposition home or self-care (01) | LOC: WOUNDCARE 02:23 | PROVIDERS: ATTEND Nurse Practitioner Family | DX: E11.622 Type 2 diabetes mellitus with other skin ulcer (principal); L97.812 Non-pressure chronic ulcer of other part of right lower leg with fat layer exposed; E11.42 Type 2 diabetes mellitus with diabetic polyneuropathy; E11.51 Type 2 diabetes mellitus with diabetic peripheral angiopathy without gangrene; E07.89 Other specified disorders of thyroid; D64.9 Anemia, unspecified; G40.909 Epilepsy, unspecified, not intractable, without status epilepticus; G25.81 Restless legs syndrome; G89.29 Other chronic pain; I25.10 Atherosclerotic heart disease of native coronary artery without angina pectoris; I10 Essential (primary) hypertension; K21.9 Gastro-esophageal reflux disease without esophagitis; M81.0 Age-related osteoporosis without current pathological fracture; F32.9 Major depressive disorder, single episode, unspecified; F17.290 Nicotine dependence, other tobacco product, uncomplicated; Z98.41 Cataract extraction status, right eye; Z98.42 Cataract extraction status, left eye; Z90.710 Acquired absence of both cervix and uterus; Z90.49 Acquired absence of other specified parts of digestive tract; Z95.0 Presence of cardiac pacemaker ==

== ENCOUNTER → 2021-06-22 | Outpatient (CLI) | payer MEDICARE ==
[2021-06-22 08:35] VITALS: BP 73/38
[2021-06-22 09:03] VITALS: BP 77/37
[2021-06-22 09:48] VITALS: BP 73/31
[2021-06-22 11:30] VITALS: BP 88/54
== END | disposition home or self-care (01) ==
LOC: TRNFUSION 01:05
PROVIDERS: ATTEND Internal Medicine
DX: D64.9 Anemia, unspecified (principal); I10 Essential (primary) hypertension; E11.9 Type 2 diabetes mellitus without complications; K21.9 Gastro-esophageal reflux disease without esophagitis; M19.90 Unspecified osteoarthritis, unspecified site; F32.9 Major depressive disorder, single episode, unspecified; F41.9 Anxiety disorder, unspecified; E04.9 Nontoxic goiter, unspecified; Z86.73 Personal history of transient ischemic attack (TIA), and cerebral infarction without residual deficits; Z90.710 Acquired absence of both cervix and uterus

== ENCOUNTER → 2021-06-28 | Outpatient (CLI) | payer MEDICARE | END | disposition home or self-care (01) | LOC: WOUNDCARE 01:11 | PROVIDERS: ATTEND Nurse Practitioner Family | DX: E11.622 Type 2 diabetes mellitus with other skin ulcer (principal); L97.812 Non-pressure chronic ulcer of other part of right lower leg with fat layer exposed; D64.9 Anemia, unspecified; E11.42 Type 2 diabetes mellitus with diabetic polyneuropathy; E11.51 Type 2 diabetes mellitus with diabetic peripheral angiopathy without gangrene; E07.89 Other specified disorders of thyroid; I25.10 Atherosclerotic heart disease of native coronary artery without angina pectoris; I10 Essential (primary) hypertension; G40.909 Epilepsy, unspecified, not intractable, without status epilepticus; G25.81 Restless legs syndrome; G89.29 Other chronic pain; I73.9 Peripheral vascular disease, unspecified; M81.0 Age-related osteoporosis without current pathological fracture; K21.9 Gastro-esophageal reflux disease without esophagitis; F32.9 Major depressive disorder, single episode, unspecified; F17.290 Nicotine dependence, other tobacco product, uncomplicated; Z98.41 Cataract extraction status, right eye; Z98.42 Cataract extraction status, left eye; Z90.710 Acquired absence of both cervix and uterus; Z90.49 Acquired absence of other specified parts of digestive tract; Z95.0 Presence of cardiac pacemaker ==

== ENCOUNTER → 2021-07-04 | Outpatient (CLI) | payer MEDICARE ==
[2021-07-04] VITALS (8 sets, daily range): BP systolic 77–101; BP diastolic 34–57
== END | disposition home or self-care (01) ==
LOC: TRNFUSION 02:22
PROVIDERS: ATTEND Family Medicine
DX: D64.9 Anemia, unspecified (principal); I10 Essential (primary) hypertension; E11.9 Type 2 diabetes mellitus without complications; K21.9 Gastro-esophageal reflux disease without esophagitis; M19.90 Unspecified osteoarthritis, unspecified site; Z86.73 Personal history of transient ischemic attack (TIA), and cerebral infarction without residual deficits; F17.200 Nicotine dependence, unspecified, uncomplicated

== ENCOUNTER → 2021-07-07 | Outpatient (CLI) | payer MEDICARE ==
[2021-07-06 08:59] VITALS: BP 89/51
[2021-07-07 10:44] VITALS: BP 75/45
[2021-07-07 11:20] VITALS: BP 102/61
[2021-07-07 11:50] VITALS: BP 101/60
[2021-07-07 12:50] VITALS: BP 104/58
[2021-07-07 13:30] VITALS: BP 111/81
== END | disposition home or self-care (01) ==
LOC: TRNFUSION 07-06 01:24
PROVIDERS: ATTEND Student in an Organized Health Care Education/Training Program
DX: D64.9 Anemia, unspecified (principal); I10 Essential (primary) hypertension; E11.9 Type 2 diabetes mellitus without complications; K21.9 Gastro-esophageal reflux disease without esophagitis; E78.00 Pure hypercholesterolemia, unspecified; M19.90 Unspecified osteoarthritis, unspecified site; F17.200 Nicotine dependence, unspecified, uncomplicated; Z86.73 Personal history of transient ischemic attack (TIA), and cerebral infarction without residual deficits

== ENCOUNTER → 2021-07-12 | Outpatient (CLI) | payer MEDICARE | END | disposition home or self-care (01) | LOC: WOUNDCARE 00:23 | PROVIDERS: ATTEND Nurse Practitioner Family | DX: L89.620 Pressure ulcer of left heel, unstageable (principal); S81.801D Unspecified open wound, right lower leg, subsequent encounter; S81.812A Laceration without foreign body, left lower leg, initial encounter; E11.622 Type 2 diabetes mellitus with other skin ulcer; L97.811 Non-pressure chronic ulcer of other part of right lower leg limited to breakdown of skin; E11.621 Type 2 diabetes mellitus with foot ulcer; L97.421 Non-pressure chronic ulcer of left heel and midfoot limited to breakdown of skin; D64.9 Anemia, unspecified; L03.031 Cellulitis of right toe; E11.42 Type 2 diabetes mellitus with diabetic polyneuropathy; E11.51 Type 2 diabetes mellitus with diabetic peripheral angiopathy without gangrene; E07.89 Other specified disorders of thyroid; I25.10 Atherosclerotic heart disease of native coronary artery without angina pectoris; I10 Essential (primary) hypertension; G40.909 Epilepsy, unspecified, not intractable, without status epilepticus; G25.81 Restless legs syndrome; G89.29 Other chronic pain; K21.9 Gastro-esophageal reflux disease without esophagitis; M81.0 Age-related osteoporosis without current pathological fracture; F32.9 Major depressive disorder, single episode, unspecified; F17.290 Nicotine dependence, other tobacco product, uncomplicated; Z90.710 Acquired absence of both cervix and uterus; Z90.49 Acquired absence of other specified parts of digestive tract; Z95.0 Presence of cardiac pacemaker; X58.XXXD Exposure to other specified factors, subsequent encounter; X58.XXXA Exposure to other specified factors, initial encounter; Y93.89 Activity, other specified; Y92.89 Other specified places as the place of occurrence of the external cause; Y99.8 Other external cause status ==

== ENCOUNTER → 2021-07-17 | Outpatient (CLI) | payer MEDICARE ==
[2021-07-17] VITALS (16 sets, daily range): BP systolic 60–99; BP diastolic 34–56
== END | disposition home or self-care (01) ==
LOC: TRNFUSION 00:36
PROVIDERS: ATTEND Internal Medicine
DX: D64.9 Anemia, unspecified (principal); I10 Essential (primary) hypertension; M19.90 Unspecified osteoarthritis, unspecified site; E11.9 Type 2 diabetes mellitus without complications; K21.9 Gastro-esophageal reflux disease without esophagitis; E78.00 Pure hypercholesterolemia, unspecified; F17.200 Nicotine dependence, unspecified, uncomplicated; Z86.73 Personal history of transient ischemic attack (TIA), and cerebral infarction without residual deficits

== ENCOUNTER → 2021-07-26 | Outpatient (CLI) | payer MEDICARE | END | disposition home or self-care (01) | LOC: WOUNDCARE 01:15 | PROVIDERS: ATTEND Nurse Practitioner Family | DX: L89.620 Pressure ulcer of left heel, unstageable (principal); E11.622 Type 2 diabetes mellitus with other skin ulcer; L97.812 Non-pressure chronic ulcer of other part of right lower leg with fat layer exposed; E11.621 Type 2 diabetes mellitus with foot ulcer; L97.422 Non-pressure chronic ulcer of left heel and midfoot with fat layer exposed; S81.812D Laceration without foreign body, left lower leg, subsequent encounter; S81.801D Unspecified open wound, right lower leg, subsequent encounter; L03.031 Cellulitis of right toe; L84 Corns and callosities; E11.42 Type 2 diabetes mellitus with diabetic polyneuropathy; E11.51 Type 2 diabetes mellitus with diabetic peripheral angiopathy without gangrene; E07.89 Other specified disorders of thyroid; D64.9 Anemia, unspecified; G40.909 Epilepsy, unspecified, not intractable, without status epilepticus; G25.81 Restless legs syndrome; G89.29 Other chronic pain; I25.10 Atherosclerotic heart disease of native coronary artery without angina pectoris; I10 Essential (primary) hypertension; K21.9 Gastro-esophageal reflux disease without esophagitis; F32.9 Major depressive disorder, single episode, unspecified; F17.290 Nicotine dependence, other tobacco product, uncomplicated; Z98.41 Cataract extraction status, right eye; Z98.42 Cataract extraction status, left eye; Z90.710 Acquired absence of both cervix and uterus; Z90.49 Acquired absence of other specified parts of digestive tract; Z95.0 Presence of cardiac pacemaker; X58.XXXD Exposure to other specified factors, subsequent encounter ==

== ENCOUNTER → 2021-07-27 | Outpatient (CLI) | payer MEDICARE ==
[2021-07-27] VITALS (11 sets, daily range): BP systolic 83–107; BP diastolic 32–63
== END | disposition home or self-care (01) ==
LOC: TRNFUSION 01:22
PROVIDERS: ATTEND Family Medicine
DX: D64.9 Anemia, unspecified (principal); I10 Essential (primary) hypertension; E11.9 Type 2 diabetes mellitus without complications; M19.90 Unspecified osteoarthritis, unspecified site; K21.9 Gastro-esophageal reflux disease without esophagitis; E78.00 Pure hypercholesterolemia, unspecified; F17.200 Nicotine dependence, unspecified, uncomplicated; Z86.73 Personal history of transient ischemic attack (TIA), and cerebral infarction without residual deficits

== ENCOUNTER → 2021-08-07 | Outpatient (CLI) | payer MEDICARE ==
[2021-08-07] VITALS (8 sets, daily range): BP systolic 84–111; BP diastolic 34–45
== END | disposition home or self-care (01) ==
LOC: TRNFUSION 01:38
PROVIDERS: ATTEND Internal Medicine
DX: D64.9 Anemia, unspecified (principal); I10 Essential (primary) hypertension; E11.9 Type 2 diabetes mellitus without complications; M19.90 Unspecified osteoarthritis, unspecified site; K21.9 Gastro-esophageal reflux disease without esophagitis; F17.210 Nicotine dependence, cigarettes, uncomplicated; F32.9 Major depressive disorder, single episode, unspecified; F41.9 Anxiety disorder, unspecified; E04.9 Nontoxic goiter, unspecified

== ENCOUNTER → 2021-08-09 | Outpatient (CLI) | payer MEDICARE | LOC: WOUNDCARE 01:37 | PROVIDERS: ATTEND Nurse Practitioner Family | DX: I70.238 Atherosclerosis of native arteries of right leg with ulceration of other part of lower leg (principal); L97.811 Non-pressure chronic ulcer of other part of right lower leg limited to breakdown of skin; I70.235 Atherosclerosis of native arteries of right leg with ulceration of other part of foot; L97.511 Non-pressure chronic ulcer of other part of right foot limited to breakdown of skin; L97.421 Non-pressure chronic ulcer of left heel and midfoot limited to breakdown of skin; S81.812D Laceration without foreign body, left lower leg, subsequent encounter; L89.620 Pressure ulcer of left heel, unstageable; L03.031 Cellulitis of right toe; E11.42 Type 2 diabetes mellitus with diabetic polyneuropathy; E07.89 Other specified disorders of thyroid; I25.10 Atherosclerotic heart disease of native coronary artery without angina pectoris; I10 Essential (primary) hypertension; G40.909 Epilepsy, unspecified, not intractable, without status epilepticus; G25.81 Restless legs syndrome; G89.29 Other chronic pain; M81.0 Age-related osteoporosis without current pathological fracture; D64.9 Anemia, unspecified; K21.9 Gastro-esophageal reflux disease without esophagitis; F17.290 Nicotine dependence, other tobacco product, uncomplicated; F32.9 Major depressive disorder, single episode, unspecified; Z98.41 Cataract extraction status, right eye; Z98.42 Cataract extraction status, left eye; Z90.710 Acquired absence of both cervix and uterus; Z90.49 Acquired absence of other specified parts of digestive tract; Z95.0 Presence of cardiac pacemaker; X58.XXXD Exposure to other specified factors, subsequent encounter ==

== ENCOUNTER 2021-08-10 14:28 | Emergency (ER) | payer MEDICARE ==
[~2021-08-10] VITALS: Ht 160 cm; Wt 55.8 kg
[2021-08-10 15:52] LABS: BASO % 0.2 % (0.0-1.0); EOS # 0.1 10*3/uL (0.0-0.4); EOS % 1.3 % (1.0-4.0); HEMATOCRIT 29.3 % (37.0-47.0); LYMPH # 0.7 10*3/uL (1.3-4.4); LYMPH % 12.4 % (27.0-41.0); MEAN CELL VOLUME 86.2 fl (81.0-99.0); MEAN CORPUSCULAR HGB 26.8 pg (27.0-31.0); MEAN CORPUSCULAR HGB CONC 31.1 g/dl (33.0-37.0); MEAN PLATELET VOLUME 9.7 fl (9.6-12.3); MONO # 0.4 10*3/uL (0.1-1.0); MONO % 7.6 % (3.0-9.0); NEUT # 4.1 10*3/uL (2.3-7.9); NEUT % 78.3 % (47.0-73.0); PLATELET COUNT AUTOMATED 227 10*3/uL (130-400); RED CELL DISTRI WIDTH 15.7 % (0-14.5); WHITE BLOOD COUNT 5.3 10*3/uL (4.8-10.8)
[2021-08-10 16:07] LABS: ALKALINE PHOSPHATASE 91 U/L (45-117); BUN 12 mg/dl (7-24); CHLORIDE 98 mmol/L (98-107); CREATININE 0.38 mg/dL (0.55-1.02); POTASSIUM 3.9 mmol/L (3.5-5.1); SGOT/AST 14 IU/L (3-35); SGPT/ALT 14 U/L (12-78); SODIUM 130 mmol/L (136-145); TOTAL PROTEIN 5.5 gm/dL (6.4-8.2)
[2021-08-10 16:39] LABS: ACT PARTIAL THROMBO TIME 28.5 SECONDS (20.0-32.1)
[2021-08-11 04:58] VITALS: BP 114/49
== END 2021-08-11 07:53 | disposition short-term general hospital (02) ==
LOC: ED 14:28
PROVIDERS: Emergency Medicine
DX: I82.411 Acute embolism and thrombosis of right femoral vein (principal); I25.10 Atherosclerotic heart disease of native coronary artery without angina pectoris; E11.9 Type 2 diabetes mellitus without complications; E78.5 Hyperlipidemia, unspecified; K21.9 Gastro-esophageal reflux disease without esophagitis; Z79.899 Other long term (current) drug therapy; Z79.82 Long term (current) use of aspirin; Z90.710 Acquired absence of both cervix and uterus; Z98.890 Other specified postprocedural states; Z90.49 Acquired absence of other specified parts of digestive tract; Z90.89 Acquired absence of other organs; F17.200 Nicotine dependence, unspecified, uncomplicated; Z86.73 Personal history of transient ischemic attack (TIA), and cerebral infarction without residual deficits

== ENCOUNTER → 2021-08-23 | Outpatient (CLI) | payer MEDICARE | END | disposition home or self-care (01) | LOC: WOUNDCARE 01:50 | PROVIDERS: ATTEND Nurse Practitioner Family | DX: I70.238 Atherosclerosis of native arteries of right leg with ulceration of other part of lower leg (principal); E11.622 Type 2 diabetes mellitus with other skin ulcer; L97.811 Non-pressure chronic ulcer of other part of right lower leg limited to breakdown of skin; L89.620 Pressure ulcer of left heel, unstageable; E11.621 Type 2 diabetes mellitus with foot ulcer; I70.235 Atherosclerosis of native arteries of right leg with ulceration of other part of foot; L97.511 Non-pressure chronic ulcer of other part of right foot limited to breakdown of skin; I70.244 Atherosclerosis of native arteries of left leg with ulceration of heel and midfoot; L97.421 Non-pressure chronic ulcer of left heel and midfoot limited to breakdown of skin; S81.801D Unspecified open wound, right lower leg, subsequent encounter; L03.031 Cellulitis of right toe; E11.42 Type 2 diabetes mellitus with diabetic polyneuropathy; E11.51 Type 2 diabetes mellitus with diabetic peripheral angiopathy without gangrene; E07.89 Other specified disorders of thyroid; D64.9 Anemia, unspecified; G40.909 Epilepsy, unspecified, not intractable, without status epilepticus; G25.81 Restless legs syndrome; G89.29 Other chronic pain; I25.10 Atherosclerotic heart disease of native coronary artery without angina pectoris; I10 Essential (primary) hypertension; K21.9 Gastro-esophageal reflux disease without esophagitis; M79.661 Pain in right lower leg; M79.671 Pain in right foot; F17.290 Nicotine dependence, other tobacco product, uncomplicated; F32.9 Major depressive disorder, single episode, unspecified; Z98.41 Cataract extraction status, right eye; Z98.42 Cataract extraction status, left eye; Z90.49 Acquired absence of other specified parts of digestive tract; Z90.710 Acquired absence of both cervix and uterus; Z95.0 Presence of cardiac pacemaker; Z95.828 Presence of other vascular implants and grafts; X58.XXXD Exposure to other specified factors, subsequent encounter ==

== ENCOUNTER → 2021-08-24 | Outpatient (CLI) | payer MEDICARE ==
[2021-08-24] VITALS (14 sets, daily range): BP systolic 84–93; BP diastolic 40–54
== END | disposition home or self-care (01) ==
LOC: TRNFUSION 00:23
PROVIDERS: ATTEND Family Medicine
DX: D64.9 Anemia, unspecified (principal); I10 Essential (primary) hypertension; E11.9 Type 2 diabetes mellitus without complications; M19.90 Unspecified osteoarthritis, unspecified site; K21.9 Gastro-esophageal reflux disease without esophagitis; F32.9 Major depressive disorder, single episode, unspecified; F41.9 Anxiety disorder, unspecified; F17.200 Nicotine dependence, unspecified, uncomplicated; Z86.73 Personal history of transient ischemic attack (TIA), and cerebral infarction without residual deficits

== ENCOUNTER → 2021-08-31 | Outpatient (CLI) | payer MEDICARE ==
[2021-08-31] VITALS (8 sets, daily range): BP systolic 81–96; BP diastolic 34–58
[~2021-08-31] MED LIST changes: +ELIQUIS5 M1 PO; +NICODERM CQ1 EAC1 TD; +PERCOCET 5-3251 EACH PO; +VITAMIN B122500 MCG SL
== END | disposition home or self-care (01) ==
LOC: TRNFUSION 01:59
PROVIDERS: ATTEND Internal Medicine
DX: D64.9 Anemia, unspecified (principal)

== ENCOUNTER → 2021-09-06 | Outpatient (CLI) | payer MEDICARE | LOC: WOUNDCARE 02:59 | PROVIDERS: ATTEND Nurse Practitioner Family | DX: E11.622 Type 2 diabetes mellitus with other skin ulcer (principal); L97.812 Non-pressure chronic ulcer of other part of right lower leg with fat layer exposed; I70.238 Atherosclerosis of native arteries of right leg with ulceration of other part of lower leg; L89.620 Pressure ulcer of left heel, unstageable; E11.621 Type 2 diabetes mellitus with foot ulcer; I70.235 Atherosclerosis of native arteries of right leg with ulceration of other part of foot; L97.511 Non-pressure chronic ulcer of other part of right foot limited to breakdown of skin; L97.421 Non-pressure chronic ulcer of left heel and midfoot limited to breakdown of skin; S81.812D Laceration without foreign body, left lower leg, subsequent encounter; S81.811A Laceration without foreign body, right lower leg, initial encounter; L03.031 Cellulitis of right toe; E11.42 Type 2 diabetes mellitus with diabetic polyneuropathy; E11.51 Type 2 diabetes mellitus with diabetic peripheral angiopathy without gangrene; D64.9 Anemia, unspecified; E07.89 Other specified disorders of thyroid; G40.909 Epilepsy, unspecified, not intractable, without status epilepticus; G25.81 Restless legs syndrome; G89.29 Other chronic pain; I25.10 Atherosclerotic heart disease of native coronary artery without angina pectoris; I10 Essential (primary) hypertension; K21.9 Gastro-esophageal reflux disease without esophagitis; M81.0 Age-related osteoporosis without current pathological fracture; M79.661 Pain in right lower leg; M79.671 Pain in right foot; F32.9 Major depressive disorder, single episode, unspecified; F17.290 Nicotine dependence, other tobacco product, uncomplicated; Z98.41 Cataract extraction status, right eye; Z98.42 Cataract extraction status, left eye; Z90.710 Acquired absence of both cervix and uterus; Z90.49 Acquired absence of other specified parts of digestive tract; Z95.0 Presence of cardiac pacemaker; X58.XXXD Exposure to other specified factors, subsequent encounter; X58.XXXA Exposure to other specified factors, initial encounter; Y93.89 Activity, other specified; Y92.89 Other specified places as the place of occurrence of the external cause; Y99.8 Other external cause status ==

== ENCOUNTER → 2021-09-20 | Outpatient (CLI) | payer MEDICARE | END | disposition home or self-care (01) | LOC: WOUNDCARE 00:18 | PROVIDERS: ATTEND Nurse Practitioner Family | DX: E11.622 Type 2 diabetes mellitus with other skin ulcer (principal); I70.238 Atherosclerosis of native arteries of right leg with ulceration of other part of lower leg; L97.812 Non-pressure chronic ulcer of other part of right lower leg with fat layer exposed; L89.620 Pressure ulcer of left heel, unstageable; E11.621 Type 2 diabetes mellitus with foot ulcer; I70.235 Atherosclerosis of native arteries of right leg with ulceration of other part of foot; L97.511 Non-pressure chronic ulcer of other part of right foot limited to breakdown of skin; L97.421 Non-pressure chronic ulcer of left heel and midfoot limited to breakdown of skin; S81.812D Laceration without foreign body, left lower leg, subsequent encounter; S81.811A Laceration without foreign body, right lower leg, initial encounter; E11.42 Type 2 diabetes mellitus with diabetic polyneuropathy; E07.89 Other specified disorders of thyroid; I25.10 Atherosclerotic heart disease of native coronary artery without angina pectoris; I10 Essential (primary) hypertension; G40.909 Epilepsy, unspecified, not intractable, without status epilepticus; G25.81 Restless legs syndrome; G89.29 Other chronic pain; E11.51 Type 2 diabetes mellitus with diabetic peripheral angiopathy without gangrene; K21.9 Gastro-esophageal reflux disease without esophagitis; M81.0 Age-related osteoporosis without current pathological fracture; M79.661 Pain in right lower leg; M79.671 Pain in right foot; F32.9 Major depressive disorder, single episode, unspecified; F17.290 Nicotine dependence, other tobacco product, uncomplicated; Z98.41 Cataract extraction status, right eye; Z98.42 Cataract extraction status, left eye; Z90.710 Acquired absence of both cervix and uterus; Z90.49 Acquired absence of other specified parts of digestive tract; Z95.0 Presence of cardiac pacemaker; X58.XXXA Exposure to other specified factors, initial encounter; Y93.89 Activity, other specified; Y92.89 Other specified places as the place of occurrence of the external cause; Y99.8 Other external cause status ==

== ENCOUNTER → 2021-09-21 | Outpatient (CLI) | payer MEDICARE ==
[2021-09-21] VITALS (8 sets, daily range): BP systolic 77–114; BP diastolic 38–76
== END | disposition home or self-care (01) ==
LOC: TRNFUSION 01:54
PROVIDERS: ATTEND Internal Medicine
DX: D64.9 Anemia, unspecified (principal); I10 Essential (primary) hypertension; E11.9 Type 2 diabetes mellitus without complications; I63.9 Cerebral infarction, unspecified; E78.00 Pure hypercholesterolemia, unspecified; K21.9 Gastro-esophageal reflux disease without esophagitis; M19.90 Unspecified osteoarthritis, unspecified site; F41.9 Anxiety disorder, unspecified; F32.A Depression, unspecified; F17.200 Nicotine dependence, unspecified, uncomplicated; Z90.710 Acquired absence of both cervix and uterus; Z98.890 Other specified postprocedural states

== ENCOUNTER → 2021-09-26 | Outpatient (CLI) | payer MEDICARE ==
[2021-09-26] VITALS (8 sets, daily range): BP systolic 82–121; BP diastolic 51–71
== END | disposition home or self-care (01) ==
LOC: TRNFUSION 00:37
PROVIDERS: ATTEND Family Medicine
DX: D64.9 Anemia, unspecified (principal)

== ENCOUNTER → 2021-09-27 | Outpatient (CLI) | payer MEDICARE | END | disposition home or self-care (01) | LOC: WOUNDCARE 01:20 | PROVIDERS: ATTEND Nurse Practitioner Family | DX: E11.622 Type 2 diabetes mellitus with other skin ulcer (principal); I70.238 Atherosclerosis of native arteries of right leg with ulceration of other part of lower leg; L97.812 Non-pressure chronic ulcer of other part of right lower leg with fat layer exposed; L89.620 Pressure ulcer of left heel, unstageable; E11.621 Type 2 diabetes mellitus with foot ulcer; I70.245 Atherosclerosis of native arteries of left leg with ulceration of other part of foot; L97.421 Non-pressure chronic ulcer of left heel and midfoot limited to breakdown of skin; L89.610 Pressure ulcer of right heel, unstageable; E11.42 Type 2 diabetes mellitus with diabetic polyneuropathy; E11.51 Type 2 diabetes mellitus with diabetic peripheral angiopathy without gangrene; E07.9 Disorder of thyroid, unspecified; I25.10 Atherosclerotic heart disease of native coronary artery without angina pectoris; I10 Essential (primary) hypertension; G40.909 Epilepsy, unspecified, not intractable, without status epilepticus; G25.81 Restless legs syndrome; G89.29 Other chronic pain; K21.9 Gastro-esophageal reflux disease without esophagitis; M81.0 Age-related osteoporosis without current pathological fracture; F32.A Depression, unspecified; F17.290 Nicotine dependence, other tobacco product, uncomplicated; Z98.41 Cataract extraction status, right eye; Z98.42 Cataract extraction status, left eye; Z90.710 Acquired absence of both cervix and uterus; Z90.49 Acquired absence of other specified parts of digestive tract; Z95.0 Presence of cardiac pacemaker; X58.XXXD Exposure to other specified factors, subsequent encounter ==

== ENCOUNTER → 2021-10-03 | Outpatient (CLI) | payer MEDICARE ==
[2021-10-03] VITALS (8 sets, daily range): BP systolic 87–97; BP diastolic 48–56
== END | disposition home or self-care (01) ==
LOC: TRNFUSION 02:32
PROVIDERS: ATTEND Internal Medicine
DX: D64.9 Anemia, unspecified (principal); I10 Essential (primary) hypertension; E11.9 Type 2 diabetes mellitus without complications; I63.9 Cerebral infarction, unspecified; E78.00 Pure hypercholesterolemia, unspecified; K21.9 Gastro-esophageal reflux disease without esophagitis; M19.90 Unspecified osteoarthritis, unspecified site; F41.9 Anxiety disorder, unspecified; F32.A Depression, unspecified; F17.200 Nicotine dependence, unspecified, uncomplicated; Z90.710 Acquired absence of both cervix and uterus; Z98.890 Other specified postprocedural states

== ENCOUNTER → 2021-10-11 | Outpatient (CLI) | payer MEDICARE | END | disposition home or self-care (01) | LOC: WOUNDCARE 01:06 | PROVIDERS: ATTEND Nurse Practitioner Family | DX: I70.238 Atherosclerosis of native arteries of right leg with ulceration of other part of lower leg (principal); E11.622 Type 2 diabetes mellitus with other skin ulcer; L97.812 Non-pressure chronic ulcer of other part of right lower leg with fat layer exposed; S81.812D Laceration without foreign body, left lower leg, subsequent encounter; S81.012D Laceration without foreign body, left knee, subsequent encounter; S81.811D Laceration without foreign body, right lower leg, subsequent encounter; L89.620 Pressure ulcer of left heel, unstageable; L89.610 Pressure ulcer of right heel, unstageable; L89.893 Pressure ulcer of other site, stage 3; L03.031 Cellulitis of right toe; L97.422 Non-pressure chronic ulcer of left heel and midfoot with fat layer exposed; E11.42 Type 2 diabetes mellitus with diabetic polyneuropathy; E11.51 Type 2 diabetes mellitus with diabetic peripheral angiopathy without gangrene; E07.89 Other specified disorders of thyroid; I25.10 Atherosclerotic heart disease of native coronary artery without angina pectoris; I10 Essential (primary) hypertension; G40.909 Epilepsy, unspecified, not intractable, without status epilepticus; G25.81 Restless legs syndrome; G89.29 Other chronic pain; D64.9 Anemia, unspecified; K21.9 Gastro-esophageal reflux disease without esophagitis; M81.0 Age-related osteoporosis without current pathological fracture; M79.661 Pain in right lower leg; M79.671 Pain in right foot; F32.9 Major depressive disorder, single episode, unspecified; F17.290 Nicotine dependence, other tobacco product, uncomplicated; Z98.41 Cataract extraction status, right eye; Z98.42 Cataract extraction status, left eye; Z90.710 Acquired absence of both cervix and uterus; Z90.49 Acquired absence of other specified parts of digestive tract; Z95.0 Presence of cardiac pacemaker; X58.XXXD Exposure to other specified factors, subsequent encounter ==

== ENCOUNTER → 2021-10-16 | Outpatient (CLI) | payer MEDICARE | LOC: WOUNDCARE 02:13 | PROVIDERS: ATTEND Nurse Practitioner Family | DX: Z53.21 Procedure and treatment not carried out due to patient leaving prior to being seen by health care provider (principal) ==

== ENCOUNTER → 2021-10-16 | Outpatient (CLI) | payer MEDICARE ==
[2021-10-16] VITALS (26 sets, daily range): BP systolic 76–115; BP diastolic 36–90
[~2021-10-16] MED LIST changes: +VANCO 1 GR1 GM/250 M IV; +VANCOMYCIN HYD750 MG IV
== END | disposition home or self-care (01) ==
LOC: TRNFUSION 10-15 10:00
PROVIDERS: ATTEND Internal Medicine
DX: D64.9 Anemia, unspecified (principal)

== ENCOUNTER 2021-10-19 00:44 | Inpatient (IN) | payer MEDICARE ==
[~2021-10-19] VITALS: Ht 157.5 cm; Wt 51.1 kg
[~2021-10-19 00:44] MED LIST changes: -VANCO 1 GR1 GM/250 M IV; -VANCOMYCIN HYD750 MG IV
[2021-10-19 11:20] VITALS: BP 82/58
[2021-10-19 11:53] LABS: BASO % 0.2 % (0.0-1.0); EOS % 0.4 % (1.0-4.0); HEMATOCRIT 36.1 % (37.0-47.0); LYMPH # 0.5 10*3/uL (1.3-4.4); LYMPH % 9.1 % (27.0-41.0); MEAN CELL VOLUME 95.8 fl (81.0-99.0); MEAN CORPUSCULAR HGB 30.2 pg (27.0-31.0); MEAN CORPUSCULAR HGB CONC 31.6 g/dl (33.0-37.0); MEAN PLATELET VOLUME 9.4 fl (9.6-12.3); MONO # 0.2 10*3/uL (0.1-1.0); MONO % 4.8 % (3.0-9.0); NEUT # 4.3 10*3/uL (2.3-7.9); NEUT % 85.3 % (47.0-73.0); PLATELET COUNT AUTOMATED 194 10*3/uL (130-400); RED BLOOD COUNT 3.77 10*6/uL (4.10-5.10); RED CELL DISTRI WIDTH 19.4 % (0-14.5)
[2021-10-19] MEDS ORDERED: TYLENOL325 M1 PO (11:53)
[2021-10-19 12:04] LABS: ACT PARTIAL THROMBO TIME 34.2 SECONDS (20.0-32.1); INTERNATIONAL NORM RATIO 1.1 (2.0-3.5)
[2021-10-19 12:09] LABS: ALKALINE PHOSPHATASE 97 U/L (45-117); BUN 10 mg/dl (7-24); CHLORIDE 101 mmol/L (98-107); CREATININE 0.52 mg/dL (0.55-1.02); POTASSIUM 3.2 mmol/L (3.5-5.1); SGOT/AST 15 IU/L (3-35); SGPT/ALT 10 U/L (12-78); SODIUM 136 mmol/L (136-145); TOTAL PROTEIN 5.1 gm/dL (6.4-8.2)
[2021-10-19 12:11] LABS: FREE T4 1.43 ng/dl (0.76-1.46)
[2021-10-19 15:35] VITALS: BP 121/74
[2021-10-19 20:00] VITALS: BP 121/69
[2021-10-20 06:03] LABS: BUN 10 mg/dl (7-24); CHLORIDE 103 mmol/L (98-107); CREATININE 0.29 mg/dL (0.55-1.02); POTASSIUM 3.4 mmol/L (3.5-5.1); SGOT/AST 13 IU/L (3-35); SGPT/ALT 9 U/L (12-78); SODIUM 134 mmol/L (136-145)
[2021-10-20 06:05] LABS: ALKALINE PHOSPHATASE 86 U/L (45-117); BASO % 0.3 % (0.0-1.0); EOS # 0.1 10*3/uL (0.0-0.4); EOS % 2.1 % (1.0-4.0); LYMPH # 0.7 10*3/uL (1.3-4.4); LYMPH % 19.9 % (27.0-41.0); MEAN CELL VOLUME 96.7 fl (81.0-99.0); MEAN CORPUSCULAR HGB 30.5 pg (27.0-31.0); MEAN CORPUSCULAR HGB CONC 31.6 g/dl (33.0-37.0); MEAN PLATELET VOLUME 9.8 fl (9.6-12.3); MONO # 0.2 10*3/uL (0.1-1.0); MONO % 6.7 % (3.0-9.0); NEUT # 2.3 10*3/uL (2.3-7.9); NEUT % 70.7 % (47.0-73.0); PLATELET COUNT AUTOMATED 177 10*3/uL (130-400); RED BLOOD COUNT 3.31 10*6/uL (4.10-5.10); RED CELL DISTRI WIDTH 19.1 % (0-14.5); TOTAL PROTEIN 4.3 gm/dL (6.4-8.2); WHITE BLOOD COUNT 3.3 10*3/uL (4.8-10.8)
[2021-10-20 08:00] VITALS: BP 104/62
[2021-10-20 16:00] VITALS: BP 94/57
[2021-10-20 20:00] VITALS: BP 138/74
[2021-10-21] VITALS: BP 126/79
[2021-10-21 05:58] LABS: ALKALINE PHOSPHATASE 97 U/L (45-117); BUN 12 mg/dl (7-24); CHLORIDE 102 mmol/L (98-107); CREATININE 0.37 mg/dL (0.55-1.02); POTASSIUM 3.6 mmol/L (3.5-5.1); SGOT/AST 15 IU/L (3-35); SGPT/ALT 11 U/L (12-78); SODIUM 132 mmol/L (136-145); TOTAL PROTEIN 4.8 gm/dL (6.4-8.2)
[2021-10-21 06:11] LABS: BASO % 0.2 % (0.0-1.0); HEMATOCRIT 32.9 % (37.0-47.0); LYMPH # 0.7 10*3/uL (1.3-4.4); LYMPH % 17.1 % (27.0-41.0); MEAN CELL VOLUME 94.3 fl (81.0-99.0); MEAN CORPUSCULAR HGB 30.7 pg (27.0-31.0); MEAN CORPUSCULAR HGB CONC 32.5 g/dl (33.0-37.0); MEAN PLATELET VOLUME 9.5 fl (9.6-12.3); MONO # 0.2 10*3/uL (0.1-1.0); NEUT # 3.2 10*3/uL (2.3-7.9); NEUT % 76.5 % (47.0-73.0); PLATELET COUNT AUTOMATED 205 10*3/uL (130-400); RED BLOOD COUNT 3.49 10*6/uL (4.10-5.10); RED CELL DISTRI WIDTH 18.5 % (0-14.5); WHITE BLOOD COUNT 4.2 10*3/uL (4.8-10.8)
[2021-10-21 08:00] VITALS: BP 117/78
[2021-10-21 12:00] VITALS: BP 120/68
[2021-10-21 20:00] VITALS: BP 112/69
[2021-10-22] VITALS: BP 119/60
[2021-10-22 06:22] LABS: BUN 12 mg/dl (7-24); CHLORIDE 102 mmol/L (98-107); CREATININE 0.45 mg/dL (0.55-1.02); POTASSIUM 3.4 mmol/L (3.5-5.1); SODIUM 134 mmol/L (136-145)
[2021-10-22 06:37] LABS: BASO % 0.3 % (0.0-1.0); EOS % 0.8 % (1.0-4.0); HEMATOCRIT 32.4 % (37.0-47.0); LYMPH # 0.7 10*3/uL (1.3-4.4); LYMPH % 17.4 % (27.0-41.0); MEAN CELL VOLUME 95.3 fl (81.0-99.0); MEAN CORPUSCULAR HGB 30.6 pg (27.0-31.0); MEAN CORPUSCULAR HGB CONC 32.1 g/dl (33.0-37.0); MEAN PLATELET VOLUME 9.5 fl (9.6-12.3); MONO # 0.2 10*3/uL (0.1-1.0); NEUT # 2.9 10*3/uL (2.3-7.9); NEUT % 75.2 % (47.0-73.0); PLATELET COUNT AUTOMATED 205 10*3/uL (130-400); RED CELL DISTRI WIDTH 17.9 % (0-14.5); WHITE BLOOD COUNT 3.9 10*3/uL (4.8-10.8)
[2021-10-22 08:00] VITALS: BP 142/80
[2021-10-22 10:40] LABS: RETICULOCYTE % 5.8 % (0.50-2.50)
[2021-10-22 11:03] LABS: IRON 35 ug/dL (50-170); LDH 154 U/L (84-246)
[2021-10-22 16:00] VITALS: BP 109/60
[2021-10-22 20:00] VITALS: BP 117/63
[2021-10-23] VITALS: BP 134/84
[2021-10-23 03:06] LABS: TOTAL PROTEIN, SERUM 4.1 g/dL (6.0-8.5)
[2021-10-23 05:47] LABS: BUN 13 mg/dl (7-24); CHLORIDE 102 mmol/L (98-107); CREATININE 0.43 mg/dL (0.55-1.02); SODIUM 135 mmol/L (136-145)
[2021-10-23 06:31] LABS: BASO % 0.3 % (0.0-1.0); EOS # 0.1 10*3/uL (0.0-0.4); HEMATOCRIT 32.7 % (37.0-47.0); LYMPH # 0.6 10*3/uL (1.3-4.4); LYMPH % 17.2 % (27.0-41.0); MEAN CELL VOLUME 96.5 fl (81.0-99.0); MEAN CORPUSCULAR HGB 30.4 pg (27.0-31.0); MEAN CORPUSCULAR HGB CONC 31.5 g/dl (33.0-37.0); MEAN PLATELET VOLUME 9.5 fl (9.6-12.3); MONO # 0.2 10*3/uL (0.1-1.0); MONO % 6.8 % (3.0-9.0); NEUT # 2.6 10*3/uL (2.3-7.9); NEUT % 73.1 % (47.0-73.0); PLATELET COUNT AUTOMATED 225 10*3/uL (130-400); RED BLOOD COUNT 3.39 10*6/uL (4.10-5.10); RED CELL DISTRI WIDTH 18.1 % (0-14.5); WHITE BLOOD COUNT 3.6 10*3/uL (4.8-10.8)
[2021-10-23 08:00] VITALS: BP 104/59
[2021-10-23 14:07] LABS: A/G RATIO 1.1 (0.7-1.7); ALBUMIN 2.1 g/dL (2.9-4.4); ALPHA-1-GLOBULIN 0.3 g/dL (0.0-0.4); ALPHA-2-GLOBULIN 0.5 g/dL (0.4-1.0); BETA GLOBULIN 0.5 g/dL (0.7-1.3); GAMMA GLOBULIN 0.6 g/dL (0.4-1.8); M-SPIKE Not Observed g/dL (Not Observed)
[2021-10-23 20:00] VITALS: BP 141/80
[2021-10-24] VITALS: BP 131/77
[2021-10-24 06:05] LABS: BUN 12 mg/dl (7-24); CHLORIDE 103 mmol/L (98-107); CREATININE 0.27 mg/dL (0.55-1.02); POTASSIUM 3.3 mmol/L (3.5-5.1); SODIUM 134 mmol/L (136-145)
[2021-10-24 06:22] LABS: BASO % 0.3 % (0.0-1.0); EOS # 0.1 10*3/uL (0.0-0.4); HEMATOCRIT 28.5 % (37.0-47.0); LYMPH # 0.5 10*3/uL (1.3-4.4); LYMPH % 18.4 % (27.0-41.0); MEAN CELL VOLUME 96.9 fl (81.0-99.0); MEAN CORPUSCULAR HGB 30.3 pg (27.0-31.0); MEAN CORPUSCULAR HGB CONC 31.2 g/dl (33.0-37.0); MEAN PLATELET VOLUME 9.2 fl (9.6-12.3); MONO # 0.2 10*3/uL (0.1-1.0); MONO % 5.5 % (3.0-9.0); NEUT # 2.1 10*3/uL (2.3-7.9); NEUT % 73.1 % (47.0-73.0); PLATELET COUNT AUTOMATED 215 10*3/uL (130-400); RED BLOOD COUNT 2.94 10*6/uL (4.10-5.10); RED CELL DISTRI WIDTH 17.8 % (0-14.5); WHITE BLOOD COUNT 2.9 10*3/uL (4.8-10.8)
[2021-10-24 08:00] VITALS: BP 101/61
[2021-10-24 12:00] VITALS: BP 90/64
[2021-10-24] MEDS ORDERED: VANCO 1 GR1 GM/250 M IV ×2 (14:40)
[2021-10-24] MEDS ORDERED: VANCOMYCIN HYD750 MG IV (15:30)
[2021-10-24 16:00] VITALS: BP 110/62
== END 2021-10-24 16:28 | DRG 592 ==
LOC: WOUNDCARE 00:44 → 5E 10:33 → WOUNDCARE 15:32 → 5E 10-24 16:28
PROVIDERS: Registered Nurse; Student in an Organized Health Care Education/Training Program; ADMIT Internal Medicine; ATTEND Internal Medicine
PROC: 02HV33Z Insertion of Infusion Device into Superior Vena Cava, Percutaneous Approach (ICD-10-PCS; principal; 2021-10-24)
PROC: B548ZZA Ultrasonography of Superior Vena Cava, Guidance (ICD-10-PCS; 2021-10-24)
DX: L97.909 Non-pressure chronic ulcer of unspecified part of unspecified lower leg with unspecified severity (principal); E43 Unspecified severe protein-calorie malnutrition; I82.411 Acute embolism and thrombosis of right femoral vein; I82.521 Chronic embolism and thrombosis of right iliac vein; I82.431 Acute embolism and thrombosis of right popliteal vein; L97.912 Non-pressure chronic ulcer of unspecified part of right lower leg with fat layer exposed; L97.922 Non-pressure chronic ulcer of unspecified part of left lower leg with fat layer exposed; E11.622 Type 2 diabetes mellitus with other skin ulcer; E11.65 Type 2 diabetes mellitus with hyperglycemia; D64.9 Anemia, unspecified; K21.9 Gastro-esophageal reflux disease without esophagitis; Z66 Do not resuscitate; I25.10 Atherosclerotic heart disease of native coronary artery without angina pectoris; G25.81 Restless legs syndrome; E11.51 Type 2 diabetes mellitus with diabetic peripheral angiopathy without gangrene; E11.43 Type 2 diabetes mellitus with diabetic autonomic (poly)neuropathy; I87.2 Venous insufficiency (chronic) (peripheral); E89.0 Postprocedural hypothyroidism; I87.8 Other specified disorders of veins; E55.9 Vitamin D deficiency, unspecified; I65.29 Occlusion and stenosis of unspecified carotid artery; Z68.20 Body mass index [BMI] 20.0-20.9, adult; Z86.73 Personal history of transient ischemic attack (TIA), and cerebral infarction without residual deficits; Z83.6 Family history of other diseases of the respiratory system; Z82.49 Family history of ischemic heart disease and other diseases of the circulatory system; Z80.1 Family history of malignant neoplasm of trachea, bronchus and lung; Z95.0 Presence of cardiac pacemaker; Z90.710 Acquired absence of both cervix and uterus; Z80.52 Family history of malignant neoplasm of bladder

== ENCOUNTER 2021-10-29 11:32 | Emergency (ER) | payer MEDICARE ==
[~2021-10-29] VITALS: Wt 56.7 kg
[~2021-10-29 11:32] MED LIST changes: +VANCO 1 GR1 GM/250 M IV; +VANCOMYCIN HYD750 MG IV
[2021-10-29 13:27] LABS: MEAN CORPUSCULAR HGB 31.9 pg (27.0-31.0); MEAN CORPUSCULAR HGB CONC 30.4 g/dl (33.0-37.0); MEAN PLATELET VOLUME 9.7 fl (9.6-12.3); PLATELET COUNT AUTOMATED 233 10*3/uL (130-400); RED BLOOD COUNT 1.41 10*6/uL (4.10-5.10); RED CELL DISTRI WIDTH 21.1 % (0-14.5); WHITE BLOOD COUNT 7.8 10*3/uL (4.8-10.8)
[2021-10-29 13:35] LABS: ACT PARTIAL THROMBO TIME 23.3 SECONDS (20.0-32.1); INTERNATIONAL NORM RATIO 1.2 (2.0-3.5)
[2021-10-29 13:39] LABS: HEMATOCRIT 14.8 % (37.0-47.0); MANUAL DIFF REFLEX YES
[2021-10-29 13:43] LABS: ALKALINE PHOSPHATASE 66 U/L (45-117); BUN 40 mg/dl (7-24); CHLORIDE 103 mmol/L (98-107); POTASSIUM 4.9 mmol/L (3.5-5.1); SGOT/AST 26 IU/L (3-35); SGPT/ALT 12 U/L (12-78); SODIUM 131 mmol/L (136-145); TOTAL PROTEIN 4.5 gm/dL (6.4-8.2)
[2021-10-29 13:50] LABS: PLATELET SUFFICIENCY NORMAL (NORMAL); TOTAL CELLS COUNTED 100 #CELLS
[2021-10-29 15:33] VITALS: BP 97/63
[2021-11-09] MEDS ORDERED: NEURONTIN300 MG PO (00:26)
[2021-11-09] MEDS ORDERED: VITAMIN B122500 MC1 SL (00:28)
[2021-11-09] MEDS ORDERED: MYSOLINE50 M2 PO (00:30)
[2021-11-09] MEDS ORDERED: VISTARIL25 MG PO (00:34)
[2021-11-09] MEDS ORDERED: MIRALAX17 GM PO (00:35)
== END 2021-10-29 16:50 | disposition home or self-care (01) ==
LOC: ED 11:32
PROVIDERS: Emergency Medicine
DX: E83.51 Hypocalcemia (principal); D62 Acute posthemorrhagic anemia; R41.82 Altered mental status, unspecified; Z79.899 Other long term (current) drug therapy; Z79.82 Long term (current) use of aspirin; Z90.710 Acquired absence of both cervix and uterus; Z90.49 Acquired absence of other specified parts of digestive tract; Z90.89 Acquired absence of other organs; Z98.890 Other specified postprocedural states; Z87.891 Personal history of nicotine dependence

== ENCOUNTER → 2021-10-30 | Outpatient (CLI) | payer MEDICARE ==
[2021-10-30] VITALS (24 sets, daily range): BP systolic 58–106; BP diastolic 33–56
[~2021-10-30] MED LIST changes: +MIRALAX17 GM PO; +MYSOLINE50 M2 PO; +NEURONTIN300 MG PO; +VISTARIL25 MG PO; +VITAMIN B122500 MC1 SL
== END | disposition home or self-care (01) ==
LOC: TRNFUSION 01:54
PROVIDERS: ATTEND Internal Medicine
DX: D64.9 Anemia, unspecified (principal); I10 Essential (primary) hypertension; E11.9 Type 2 diabetes mellitus without complications; E78.00 Pure hypercholesterolemia, unspecified; K21.9 Gastro-esophageal reflux disease without esophagitis; M19.90 Unspecified osteoarthritis, unspecified site; F41.9 Anxiety disorder, unspecified; F32.A Depression, unspecified; Z90.710 Acquired absence of both cervix and uterus; Z87.891 Personal history of nicotine dependence; Z98.890 Other specified postprocedural states

== ENCOUNTER → 2021-11-05 | Outpatient (CLI) | payer MEDICARE ==
[~2021-11-05] MED LIST changes: -MIRALAX17 GM PO; -MYSOLINE50 M2 PO; -NEURONTIN300 MG PO; -VISTARIL25 MG PO; -VITAMIN B122500 MC1 SL
== END ==
LOC: WOUNDCARE 03:43
PROVIDERS: ATTEND Podiatrist Foot & Ankle Surgery
DX: I70.238 Atherosclerosis of native arteries of right leg with ulceration of other part of lower leg (principal); L97.812 Non-pressure chronic ulcer of other part of right lower leg with fat layer exposed; L89.620 Pressure ulcer of left heel, unstageable; S81.812D Laceration without foreign body, left lower leg, subsequent encounter; L89.610 Pressure ulcer of right heel, unstageable; L89.893 Pressure ulcer of other site, stage 3; L97.421 Non-pressure chronic ulcer of left heel and midfoot limited to breakdown of skin; E11.42 Type 2 diabetes mellitus with diabetic polyneuropathy; I25.10 Atherosclerotic heart disease of native coronary artery without angina pectoris; I10 Essential (primary) hypertension; E07.89 Other specified disorders of thyroid; G40.909 Epilepsy, unspecified, not intractable, without status epilepticus; G25.81 Restless legs syndrome; G89.29 Other chronic pain; D64.9 Anemia, unspecified; K21.9 Gastro-esophageal reflux disease without esophagitis; M79.671 Pain in right foot; M79.661 Pain in right lower leg; F32.9 Major depressive disorder, single episode, unspecified; F17.290 Nicotine dependence, other tobacco product, uncomplicated; Z98.41 Cataract extraction status, right eye; Z98.42 Cataract extraction status, left eye; Z90.710 Acquired absence of both cervix and uterus; Z90.49 Acquired absence of other specified parts of digestive tract; Z95.0 Presence of cardiac pacemaker; X58.XXXD Exposure to other specified factors, subsequent encounter

== ENCOUNTER 2021-11-07 01:37 | Emergency (ER) | payer MEDICARE ==
[~2021-11-07] VITALS: Wt 70.3 kg
[2021-11-07 02:42] LABS: BASO % 0.4 % (0.0-1.0); EOS # 0.1 10*3/uL (0.0-0.4); EOS % 4.5 % (1.0-4.0); HEMATOCRIT 26.1 % (37.0-47.0); LYMPH # 0.7 10*3/uL (1.3-4.4); LYMPH % 27.2 % (27.0-41.0); MEAN CORPUSCULAR HGB 29.3 pg (27.0-31.0); MEAN CORPUSCULAR HGB CONC 30.7 g/dl (33.0-37.0); MEAN PLATELET VOLUME 9.6 fl (9.6-12.3); MONO # 0.1 10*3/uL (0.1-1.0); MONO % 5.8 % (3.0-9.0); NEUT # 1.5 10*3/uL (2.3-7.9); NEUT % 62.1 % (47.0-73.0); PLATELET COUNT AUTOMATED 180 10*3/uL (130-400); RED BLOOD COUNT 2.73 10*6/uL (4.10-5.10); RED CELL DISTRI WIDTH 18.2 % (0-14.5); WHITE BLOOD COUNT 2.4 10*3/uL (4.8-10.8)
[2021-11-07 02:47] LABS: MEAN CELL VOLUME 95.6 fl (81.0-99.0)
[2021-11-07 02:58] LABS: ALKALINE PHOSPHATASE 66 U/L (45-117); BUN 19 mg/dl (7-24); CHLORIDE 102 mmol/L (98-107); POTASSIUM 4.3 mmol/L (3.5-5.1); SGOT/AST 20 IU/L (3-35); SGPT/ALT 15 U/L (12-78); SODIUM 132 mmol/L (136-145); TOTAL PROTEIN 3.9 gm/dL (6.4-8.2)
[2021-11-07 06:40] VITALS: BP 96/56
[2021-11-09] MEDS ORDERED: NEURONTIN300 MG PO (00:26)
[2021-11-09] MEDS ORDERED: VITAMIN B122500 MC1 SL (00:28)
[2021-11-09] MEDS ORDERED: MYSOLINE50 M2 PO (00:30)
[2021-11-09] MEDS ORDERED: VISTARIL25 MG PO (00:34)
[2021-11-09] MEDS ORDERED: MIRALAX17 GM PO (00:35)
[2021-11-11] MEDS ORDERED: NEURONTIN300 MG PO ×2 (12:48→12:54)
[2021-11-11] MEDS ORDERED: PERCOCET 5-3251 EACH PO (12:48)
== END 2021-11-07 08:04 ==
LOC: ED 01:37
PROVIDERS: Emergency Medicine
DX: R60.0 Localized edema (principal); R53.83 Other fatigue; I25.10 Atherosclerotic heart disease of native coronary artery without angina pectoris; E11.40 Type 2 diabetes mellitus with diabetic neuropathy, unspecified; I10 Essential (primary) hypertension; K21.9 Gastro-esophageal reflux disease without esophagitis; E78.5 Hyperlipidemia, unspecified; E11.51 Type 2 diabetes mellitus with diabetic peripheral angiopathy without gangrene; M81.0 Age-related osteoporosis without current pathological fracture; F17.200 Nicotine dependence, unspecified, uncomplicated; Z86.718 Personal history of other venous thrombosis and embolism; Z91.048 Other nonmedicinal substance allergy status; Z79.899 Other long term (current) drug therapy; Z79.2 Long term (current) use of antibiotics; Z79.82 Long term (current) use of aspirin; Z90.710 Acquired absence of both cervix and uterus; Z90.89 Acquired absence of other organs; Z98.890 Other specified postprocedural states

== ENCOUNTER → 2021-11-12 | Outpatient (CLI) | payer MEDICARE ==
[~2021-11-12] MED LIST changes: +MIRALAX17 GM PO; +MYSOLINE50 M2 PO; +NEURONTIN300 MG PO; +VISTARIL25 MG PO; +VITAMIN B122500 MC1 SL
== END | disposition home or self-care (01) ==
LOC: WOUNDCARE 00:57
PROVIDERS: ATTEND Podiatrist Foot & Ankle Surgery
DX: I70.238 Atherosclerosis of native arteries of right leg with ulceration of other part of lower leg (principal); E11.622 Type 2 diabetes mellitus with other skin ulcer; L97.812 Non-pressure chronic ulcer of other part of right lower leg with fat layer exposed; S81.812D Laceration without foreign body, left lower leg, subsequent encounter; S81.012D Laceration without foreign body, left knee, subsequent encounter; S81.811D Laceration without foreign body, right lower leg, subsequent encounter; L89.620 Pressure ulcer of left heel, unstageable; L89.610 Pressure ulcer of right heel, unstageable; L89.893 Pressure ulcer of other site, stage 3; L97.422 Non-pressure chronic ulcer of left heel and midfoot with fat layer exposed; E11.42 Type 2 diabetes mellitus with diabetic polyneuropathy; E11.51 Type 2 diabetes mellitus with diabetic peripheral angiopathy without gangrene; G40.909 Epilepsy, unspecified, not intractable, without status epilepticus; G25.81 Restless legs syndrome; G89.29 Other chronic pain; I10 Essential (primary) hypertension; E07.9 Disorder of thyroid, unspecified; I25.10 Atherosclerotic heart disease of native coronary artery without angina pectoris; M79.671 Pain in right foot; M79.661 Pain in right lower leg; F32.A Depression, unspecified; Z98.41 Cataract extraction status, right eye; Z98.42 Cataract extraction status, left eye; Z90.710 Acquired absence of both cervix and uterus; X58.XXXD Exposure to other specified factors, subsequent encounter

== ENCOUNTER → 2021-11-16 | Outpatient (CLI) | payer MEDICARE ==
[2021-11-16] VITALS (10 sets, daily range): BP systolic 90–108; BP diastolic 53–73
== END | disposition home or self-care (01) ==
LOC: TRNFUSION 00:20
PROVIDERS: ATTEND Internal Medicine
DX: D64.9 Anemia, unspecified (principal); I10 Essential (primary) hypertension; E11.9 Type 2 diabetes mellitus without complications; E78.00 Pure hypercholesterolemia, unspecified; K21.9 Gastro-esophageal reflux disease without esophagitis; M19.90 Unspecified osteoarthritis, unspecified site; F32.A Depression, unspecified; F41.9 Anxiety disorder, unspecified; Z90.710 Acquired absence of both cervix and uterus; Z98.890 Other specified postprocedural states

== ENCOUNTER → 2021-11-21 | Outpatient (CLI) | payer MEDICARE ==
[2021-11-21] VITALS (11 sets, daily range): BP systolic 74–109; BP diastolic 29–79
[2021-11-23] VITALS (10 sets, daily range): BP systolic 81–109; BP diastolic 41–56
== END | disposition home or self-care (01) ==
LOC: TRNFUSION 04:45
PROVIDERS: ATTEND Internal Medicine
DX: D64.9 Anemia, unspecified (principal); I10 Essential (primary) hypertension; E11.9 Type 2 diabetes mellitus without complications; E78.00 Pure hypercholesterolemia, unspecified; K21.9 Gastro-esophageal reflux disease without esophagitis; M19.90 Unspecified osteoarthritis, unspecified site; F32.A Depression, unspecified; F17.210 Nicotine dependence, cigarettes, uncomplicated; Z90.710 Acquired absence of both cervix and uterus; Z98.890 Other specified postprocedural states

== ENCOUNTER → 2021-11-23 | Outpatient (CLI) | payer MEDICARE ==
[2021-11-23 09:43] VITALS: BP 82/55
[2021-11-23 15:00] VITALS: BP 99/54
== END | disposition home or self-care (01) ==
LOC: TRNFUSION 02:27
PROVIDERS: ATTEND Internal Medicine
DX: D64.9 Anemia, unspecified (principal); I10 Essential (primary) hypertension; E11.9 Type 2 diabetes mellitus without complications; K21.9 Gastro-esophageal reflux disease without esophagitis; M19.90 Unspecified osteoarthritis, unspecified site; F41.9 Anxiety disorder, unspecified; E04.9 Nontoxic goiter, unspecified; F32.9 Major depressive disorder, single episode, unspecified; Z86.73 Personal history of transient ischemic attack (TIA), and cerebral infarction without residual deficits; Z79.899 Other long term (current) drug therapy

== ENCOUNTER → 2021-11-26 | Outpatient (CLI) | payer MEDICARE | LOC: WOUNDCARE 00:01 | PROVIDERS: ATTEND Podiatrist Foot & Ankle Surgery | DX: I70.238 Atherosclerosis of native arteries of right leg with ulceration of other part of lower leg (principal); E11.622 Type 2 diabetes mellitus with other skin ulcer; L97.812 Non-pressure chronic ulcer of other part of right lower leg with fat layer exposed; S81.812D Laceration without foreign body, left lower leg, subsequent encounter; L89.620 Pressure ulcer of left heel, unstageable; L89.610 Pressure ulcer of right heel, unstageable; L89.893 Pressure ulcer of other site, stage 3; S91.302A Unspecified open wound, left foot, initial encounter; E11.621 Type 2 diabetes mellitus with foot ulcer; L97.421 Non-pressure chronic ulcer of left heel and midfoot limited to breakdown of skin; E07.89 Other specified disorders of thyroid; L03.031 Cellulitis of right toe; E11.51 Type 2 diabetes mellitus with diabetic peripheral angiopathy without gangrene; E11.42 Type 2 diabetes mellitus with diabetic polyneuropathy; I25.10 Atherosclerotic heart disease of native coronary artery without angina pectoris; I10 Essential (primary) hypertension; G40.909 Epilepsy, unspecified, not intractable, without status epilepticus; G25.81 Restless legs syndrome; G89.29 Other chronic pain; D64.9 Anemia, unspecified; K21.9 Gastro-esophageal reflux disease without esophagitis; M79.661 Pain in right lower leg; M79.671 Pain in right foot; F32.9 Major depressive disorder, single episode, unspecified; F17.290 Nicotine dependence, other tobacco product, uncomplicated; Z98.41 Cataract extraction status, right eye; Z98.42 Cataract extraction status, left eye; Z90.710 Acquired absence of both cervix and uterus; Z90.49 Acquired absence of other specified parts of digestive tract; Z95.0 Presence of cardiac pacemaker; Z95.5 Presence of coronary angioplasty implant and graft; X58.XXXA Exposure to other specified factors, initial encounter; Y93.89 Activity, other specified; Y92.89 Other specified places as the place of occurrence of the external cause; Y99.8 Other external cause status ==

== ENCOUNTER → 2021-11-30 | Outpatient (CLI) | payer MEDICARE ==
[2021-11-30 09:12] VITALS: BP 64/39
== END | disposition home or self-care (01) ==
LOC: TRNFUSION 07:06
PROVIDERS: ATTEND Student in an Organized Health Care Education/Training Program
DX: D64.9 Anemia, unspecified (principal); I10 Essential (primary) hypertension; E11.9 Type 2 diabetes mellitus without complications; E78.00 Pure hypercholesterolemia, unspecified; K21.9 Gastro-esophageal reflux disease without esophagitis; M19.90 Unspecified osteoarthritis, unspecified site; F32.A Depression, unspecified; F41.9 Anxiety disorder, unspecified; Z90.710 Acquired absence of both cervix and uterus; Z98.890 Other specified postprocedural states

== ENCOUNTER → 2021-12-03 | Outpatient (CLI) | payer MEDICARE | END | disposition home or self-care (01) | LOC: WOUNDCARE 03:01 | PROVIDERS: ATTEND Podiatrist Foot & Ankle Surgery | DX: I70.238 Atherosclerosis of native arteries of right leg with ulceration of other part of lower leg (principal); L97.812 Non-pressure chronic ulcer of other part of right lower leg with fat layer exposed; L89.620 Pressure ulcer of left heel, unstageable; L89.610 Pressure ulcer of right heel, unstageable; L89.893 Pressure ulcer of other site, stage 3; I70.244 Atherosclerosis of native arteries of left leg with ulceration of heel and midfoot; L97.421 Non-pressure chronic ulcer of left heel and midfoot limited to breakdown of skin; S81.812D Laceration without foreign body, left lower leg, subsequent encounter; S81.801D Unspecified open wound, right lower leg, subsequent encounter; S91.302A Unspecified open wound, left foot, initial encounter; E11.42 Type 2 diabetes mellitus with diabetic polyneuropathy; D64.9 Anemia, unspecified; I25.10 Atherosclerotic heart disease of native coronary artery without angina pectoris; I10 Essential (primary) hypertension; E07.89 Other specified disorders of thyroid; G40.909 Epilepsy, unspecified, not intractable, without status epilepticus; G25.81 Restless legs syndrome; M81.0 Age-related osteoporosis without current pathological fracture; M79.661 Pain in right lower leg; M79.671 Pain in right foot; K21.9 Gastro-esophageal reflux disease without esophagitis; F32.9 Major depressive disorder, single episode, unspecified; F17.290 Nicotine dependence, other tobacco product, uncomplicated; Z90.49 Acquired absence of other specified parts of digestive tract; Z90.710 Acquired absence of both cervix and uterus; Z95.0 Presence of cardiac pacemaker; X58.XXXD Exposure to other specified factors, subsequent encounter; X58.XXXA Exposure to other specified factors, initial encounter; Y93.89 Activity, other specified; Y92.89 Other specified places as the place of occurrence of the external cause; Y99.8 Other external cause status ==

== ENCOUNTER → 2021-12-04 | Outpatient (CLI) | payer MEDICARE | END | disposition home or self-care (01) | LOC: TRNFUSION 00:01 → EDSTATUS 08:30 | PROVIDERS: ATTEND Internal Medicine | DX: D64.9 Anemia, unspecified (principal) ==

== ENCOUNTER → 2021-12-10 | Outpatient (CLI) | payer MEDICARE | END | disposition home or self-care (01) | LOC: WOUNDCARE 00:46 | PROVIDERS: ATTEND Podiatrist Foot & Ankle Surgery | DX: E11.622 Type 2 diabetes mellitus with other skin ulcer (principal); I70.238 Atherosclerosis of native arteries of right leg with ulceration of other part of lower leg; L97.812 Non-pressure chronic ulcer of other part of right lower leg with fat layer exposed; E11.621 Type 2 diabetes mellitus with foot ulcer; L97.421 Non-pressure chronic ulcer of left heel and midfoot limited to breakdown of skin; L89.620 Pressure ulcer of left heel, unstageable; L89.610 Pressure ulcer of right heel, unstageable; L89.893 Pressure ulcer of other site, stage 3; S81.811D Laceration without foreign body, right lower leg, subsequent encounter; S91.302D Unspecified open wound, left foot, subsequent encounter; L03.031 Cellulitis of right toe; E11.42 Type 2 diabetes mellitus with diabetic polyneuropathy; E11.51 Type 2 diabetes mellitus with diabetic peripheral angiopathy without gangrene; E07.89 Other specified disorders of thyroid; G40.909 Epilepsy, unspecified, not intractable, without status epilepticus; G25.81 Restless legs syndrome; G89.29 Other chronic pain; M81.0 Age-related osteoporosis without current pathological fracture; D64.9 Anemia, unspecified; I25.10 Atherosclerotic heart disease of native coronary artery without angina pectoris; I10 Essential (primary) hypertension; M79.661 Pain in right lower leg; M79.671 Pain in right foot; K21.9 Gastro-esophageal reflux disease without esophagitis; F32.9 Major depressive disorder, single episode, unspecified; F17.290 Nicotine dependence, other tobacco product, uncomplicated; Z79.4 Long term (current) use of insulin; Z98.41 Cataract extraction status, right eye; Z98.42 Cataract extraction status, left eye; Z90.710 Acquired absence of both cervix and uterus; Z90.49 Acquired absence of other specified parts of digestive tract; Z95.0 Presence of cardiac pacemaker; Z95.828 Presence of other vascular implants and grafts; X58.XXXD Exposure to other specified factors, subsequent encounter ==

== ENCOUNTER → 2021-12-17 | Outpatient (CLI) | payer MEDICARE ==
[~2021-12-17] MED LIST changes: +AQUAPHOR WITH N50 GM T; +Duragesic 50 M50 MCG TD; +MORPHINE S10 MG/0.2 PO
== END | disposition home or self-care (01) ==
LOC: WOUNDCARE 01:54
PROVIDERS: ATTEND Podiatrist Foot & Ankle Surgery
DX: I70.238 Atherosclerosis of native arteries of right leg with ulceration of other part of lower leg (principal); E11.622 Type 2 diabetes mellitus with other skin ulcer; L97.812 Non-pressure chronic ulcer of other part of right lower leg with fat layer exposed; L89.620 Pressure ulcer of left heel, unstageable; E11.621 Type 2 diabetes mellitus with foot ulcer; L97.422 Non-pressure chronic ulcer of left heel and midfoot with fat layer exposed; S81.801D Unspecified open wound, right lower leg, subsequent encounter; L03.031 Cellulitis of right toe; D64.9 Anemia, unspecified; E11.42 Type 2 diabetes mellitus with diabetic polyneuropathy; E07.89 Other specified disorders of thyroid; I25.10 Atherosclerotic heart disease of native coronary artery without angina pectoris; I10 Essential (primary) hypertension; G40.909 Epilepsy, unspecified, not intractable, without status epilepticus; G25.81 Restless legs syndrome; G89.29 Other chronic pain; K21.9 Gastro-esophageal reflux disease without esophagitis; M81.0 Age-related osteoporosis without current pathological fracture; M79.661 Pain in right lower leg; M79.671 Pain in right foot; F32.9 Major depressive disorder, single episode, unspecified; F17.290 Nicotine dependence, other tobacco product, uncomplicated; Z98.41 Cataract extraction status, right eye; Z98.42 Cataract extraction status, left eye; Z90.710 Acquired absence of both cervix and uterus; Z90.49 Acquired absence of other specified parts of digestive tract; Z95.0 Presence of cardiac pacemaker; X58.XXXD Exposure to other specified factors, subsequent encounter

== ENCOUNTER 2021-12-24 15:45 | Inpatient (IN) | payer MEDICARE ==
[~2021-12-24] VITALS: Ht 152.4 cm; Wt 46.3 kg
[2021-12-24] VITALS (9 sets, daily range): BP systolic 57–78; BP diastolic 19–50
[~2021-12-24 15:45] MED LIST changes: -AQUAPHOR WITH N50 GM T; -Duragesic 50 M50 MCG TD; -MORPHINE S10 MG/0.2 PO
[2021-12-24 16:24] LABS: HEMATOCRIT 31.5 % (37.0-47.0); MEAN CELL VOLUME 91.8 fl (81.0-99.0); MEAN CORPUSCULAR HGB 27.7 pg (27.0-31.0); MEAN CORPUSCULAR HGB CONC 30.2 g/dl (33.0-37.0); MEAN PLATELET VOLUME 8.9 fl (9.6-12.3); PLATELET COUNT AUTOMATED 393 10*3/uL (130-400); RED BLOOD COUNT 3.43 10*6/uL (4.10-5.10); RED CELL DISTRI WIDTH 16.6 % (0-14.5); WHITE BLOOD COUNT 18.6 10*3/uL (4.8-10.8)
[2021-12-24 16:32] LABS: MANUAL DIFF REFLEX YES
[2021-12-24 16:34] LABS: ACT PARTIAL THROMBO TIME 48.4 SECONDS (20.0-32.1); INTERNATIONAL NORM RATIO 2.3 (2.0-3.5)
[2021-12-24 16:44] LABS: CREATININE 1.43 mg/dL (0.55-1.02); TOTAL PROTEIN 4.9 gm/dL (6.4-8.2)
[2021-12-24 16:49] LABS: PLATELET SUFFICIENCY NORMAL (NORMAL); POLYCHROMASIA SLIGHT; TOTAL CELLS COUNTED 100 #CELLS
[2021-12-24 16:50] LABS: ACANTHOCYTES FEW; BURR CELLS FEW
[2021-12-24 16:51] LABS: STOMATOCYTE FEW
[2021-12-24 17:33] LABS: BILIRUBIN Negative (Negative); BLOOD 3+ (Negative); CLARITY Turbid (Clear); COLOR Yellow (Yellow); GLUCOSE Negative (Negative); KETONE Negative (Negative); SPECIFIC GRAVITY 1.015 (1.001-1.030)
[2021-12-24 17:34] LABS: LEUKO ESTERASE 3+ (Negative); NITRITE Negative (Negative); PH 7.5 (4.5-8.0); UROBILINOGEN 0.2 E.U./dl (0.0-1.0); WBC TNTC wbc/hpf (0-5)
[2021-12-25] VITALS (53 sets, daily range): BP systolic 43–152; BP diastolic 0–95
[2021-12-25] MEDS ORDERED: AQUAPHOR WITH N50 GM T (00:40)
[2021-12-25] MEDS ORDERED: LASIX20 MG PO (00:43)
[2021-12-25] MEDS ORDERED: Duragesic 50 M50 MCG TD (00:43)
[2021-12-25] MEDS ORDERED: MORPHINE S10 MG/0.2 PO (00:46)
[2021-12-25 01:10] LABS: CREATININE 1.43 mg/dL (0.55-1.02); POTASSIUM 5.1 mmol/L (3.5-5.1)
[2021-12-25 05:26] LABS: CREATININE 1.29 mg/dL (0.55-1.02); POTASSIUM 4.6 mmol/L (3.5-5.1)
[2021-12-25 05:29] LABS: TOTAL PROTEIN 4.8 gm/dL (6.4-8.2)
[2021-12-25 06:10] LABS: HEMATOCRIT 28.1 % (37.0-47.0); MEAN CELL VOLUME 92.1 fl (81.0-99.0); MEAN CORPUSCULAR HGB 27.5 pg (27.0-31.0); MEAN CORPUSCULAR HGB CONC 29.9 g/dl (33.0-37.0); MEAN PLATELET VOLUME 8.7 fl (9.6-12.3); PLATELET COUNT AUTOMATED 488 10*3/uL (130-400); RED BLOOD COUNT 3.05 10*6/uL (4.10-5.10); RED CELL DISTRI WIDTH 16.5 % (0-14.5); WHITE BLOOD COUNT 24.6 10*3/uL (4.8-10.8)
[2021-12-25 06:53] LABS: MANUAL DIFF REFLEX YES
[2021-12-25 07:38] LABS: TOTAL CELLS COUNTED 100 #CELLS
[2021-12-25 07:39] LABS: BURR CELLS FEW; PLATELET SUFFICIENCY HIGH (NORMAL); POLYCHROMASIA SLIGHT; SCHISTOCYTES FEW; TOXIC GRANULATION SLIGHT
== END 2021-12-25 17:38 | disposition hospice, inpatient (51) | DRG 871 ==
LOC: ED 15:45 → EDHOLD 19:14 → ICCU 19:14 → EDHOLD 20:11 → ICCU 20:31
PROVIDERS: Emergency Medicine; Internal Medicine; ADMIT Emergency Medicine; ATTEND Emergency Medicine
DX: A41.9 Sepsis, unspecified organism (principal); E43 Unspecified severe protein-calorie malnutrition; N17.0 Acute kidney failure with tubular necrosis; R65.21 Severe sepsis with septic shock; N30.01 Acute cystitis with hematuria; E87.1 Hypo-osmolality and hyponatremia; D68.9 Coagulation defect, unspecified; Z68.1 Body mass index [BMI] 19.9 or less, adult; G93.40 Encephalopathy, unspecified; K55.20 Angiodysplasia of colon without hemorrhage; T50.901D Poisoning by unspecified drugs, medicaments and biological substances, accidental (unintentional), subsequent encounter; I25.10 Atherosclerotic heart disease of native coronary artery without angina pectoris; E11.40 Type 2 diabetes mellitus with diabetic neuropathy, unspecified; K21.9 Gastro-esophageal reflux disease without esophagitis; E78.5 Hyperlipidemia, unspecified; E11.51 Type 2 diabetes mellitus with diabetic peripheral angiopathy without gangrene; M81.0 Age-related osteoporosis without current pathological fracture; G25.81 Restless legs syndrome; E89.0 Postprocedural hypothyroidism; I95.9 Hypotension, unspecified; Z66 Do not resuscitate; R62.7 Adult failure to thrive; E87.5 Hyperkalemia; D64.9 Anemia, unspecified; E87.8 Other disorders of electrolyte and fluid balance, not elsewhere classified; E11.65 Type 2 diabetes mellitus with hyperglycemia; I87.2 Venous insufficiency (chronic) (peripheral); E83.59 Other disorders of calcium metabolism; R41.0 Disorientation, unspecified; R41.9 Unspecified symptoms and signs involving cognitive functions and awareness; Z86.73 Personal history of transient ischemic attack (TIA), and cerebral infarction without residual deficits; Z88.8 Allergy status to other drugs, medicaments and biological substances; Z86.16 Personal history of COVID-19; Z86.718 Personal history of other venous thrombosis and embolism; Z98.42 Cataract extraction status, left eye; Z98.41 Cataract extraction status, right eye; Z90.710 Acquired absence of both cervix and uterus; Z95.0 Presence of cardiac pacemaker; Z82.49 Family history of ischemic heart disease and other diseases of the circulatory system; Z83.6 Family history of other diseases of the respiratory system; Z80.1 Family history of malignant neoplasm of trachea, bronchus and lung; Z80.52 Family history of malignant neoplasm of bladder; T68.XXXD Hypothermia, subsequent encounter; Z51.5 Encounter for palliative care